=== PATIENT | male | born 1975 | race Caucasian/White ===

== ENCOUNTER 2018-04-28 23:12 | Inpatient (IN) | payer OTHER ==
[2018-04-28] MEDS: SODIUM CHLORIDE 0.9% 1,000 ML IV SCH (23:34)
[2018-04-28 23:51] LABS: Basophils % (A) 0 %; Eosinophils % (A) 0 %; HCT 36.9 % (39.0-53.0); HGB 11.9 gm/dL (13.0-17.5); Lymphocytes # (A) 0.6 k/uL (1.0-4.8); Lymphocytes % (A) 5 %; MCH 27.5 pg (25.0-35.0); MCHC 32.3 g/dL (31.0-37.0); MCV 84.9 fL (80.0-100.0); Mean Platelet Volume 6.9; Monocytes # (A) 0.5 k/uL (0-1.0); Monocytes % (A) 4 %; Neutrophils # (A) 11.9 k/uL (1.3-7.7); Neutrophils % (A) 91 %; Platelet Count 206 k/uL (150-450); RBC 4.34 m/uL (4.30-5.90)
[2018-04-29 00:02] LABS: Albumin 2.9 g/dL (3.5-5.0); Calcium 7.8 mg/dL (8.4-10.2); Potassium 4.2 mmol/L (3.5-5.1); Total Bilirubin 0.8 mg/dL (0.2-1.3); Total Protein 5.5 g/dL (6.3-8.2)
--- NOTE | 2018-04-29 00:11 | ED ---
General Adult HPI - General Chief complaint: Recheck/Abnormal Lab/Rx Stated complaint: Sepsis Time Seen by Provider: 04/28/18 23:21 Source: patient, EMS Mode of arrival: EMS Limitations: no limitations - History of Present Illness Initial comments: Lamont is a 43-year-old male with past medical history of psychiatric illness as well as gout who presents the emergency room today as a transfer from an outside facility for further management of sepsis secondary to cellulitis. The patient was seen and evaluated in an emergency department on April 27 at which time he was having bright red blood per rectum, he was advised that this was likely related to NSAID use due to his pain secondary to gout. At the time he is noted to have bilateral lower extremity cellulitis which developed after from his legs. Patient reports that last week he helped his friend do some concrete work, he will boots with socks as well as shorts but no pants and no protective clothing. He reports after doing this concrete work his socks pulled the skin off of his leg. Since that time the area has become somewhat red and tender. The left leg has some. On discharge. Yesterday he was prescribed by mouth Bactrim is charged home from the emergency department. Patient reports that on the afternoon of April 28 he developed a fever and rigors, he describes it as feeling shaking all over his body but he cannot control. He return to the emergency department and was found to be febrile, tachycardic, hypotensive with lab evaluation revealing leukocytosis, lactic acidosis. Patient was noted to be septic secondary to the cellulitis of the bilateral lower extremities he was treated with IV Zosyn and clindamycin. He is given IV fluids and his blood pressure remained him what low, he was transferred to our emergency department. Prior to transfer the patient was started on levophed, however this was discontinued in route due to normalization of the blood pressure. She denies any history of significant cellulitis or skin infections. Denies any history of diabetes. Denies any other complaints including headache, chest pain, cough, shortness of breath, palpitations, abdominal pain, nausea, vomiting. He reports that he only had the one episode of bright red blood per rectum yesterday. That has not persisted today. Panda pain. No change in bowel or bladder habits. No other rashes injuries or complaints. - Related Data Home Medications Medication Instructions Recorded Confirmed Paliperidone Palmitate [Invega 156 mg IM DIRECTED 02/20/14 07/28/14 S[facility]enna] Previous Rx's Medication Instructions Recorded Escitalopram [Lexapro] 20 mg PO HS 30 Days tab 08/01/14 OXcarbazepine [Trileptal] 300 mg PO HS 30 Days tab 08/01/14 Allergies Allergy/AdvReac Type Severity Reaction Status Date / Time No Known Allergies Allergy Verified 07/28/14 05:57 Review of Systems ROS Statement: Those systems with pertinent positive or pertinent negative responses have been documented in the HPI. ROS Other: All systems not noted in ROS Statement are negative. Past Medical History Additional Past Medical History / Comment(s): Gout History of Any Multi-Drug Resistant Organisms: None Reported Additional Past Surgical History / Comment(s): POLYP REMOVED FROM NOSE AND A CYST REMOVED FROM LOWER BACK Past Anesthesia/Blood Transfusion Reactions: No Reported Reaction Past Psychological History: Anxiety, Bipolar, Depression Smoking Status: Never smoker Past Alcohol Use History: None Reported Past Drug Use History: None Reported General Exam - General Exam Comments Initial Comments: GENERAL: Flushed, mildly toxic appearing HENT: Normocephalic, Atraumatic. Neck is soft and supple. No significant lymphadenopathy is noted. Oropharynx is clear. Moist mucous membranes. Neck has full range of motion without eliciting any pain. EYES: The sclera were anicteric and conjunctiva were pink and moist. Extraocular movements were intact and pupils were equal round and reactive to light. Eyelids were unremarkable. PULMONARY: Unlabored respirations. Good breath sounds bilaterally. No audible rales rhonchi or wheezing was noted. CARDIOVASCULAR: There is a regular rate and rhythm without any murmurs gallops or rubs. ABDOMEN: Soft and nontender with normal bowel sounds. SKIN: Bilateral medial shins have areas of skin excoriation with surrounding erythema , left leg has purulent drainage noted NEUROLOGIC: Patient is alert and oriented x3. Cranial nerves II through XII are grossly intact. Motor and sensory are also intact. Normal speech, volume and content. Symmetrical smile. MUSCULOSKELETAL: Normal extremities with adequate strength and full range of motion. No lower extremity swelling or edema. No calf tenderness. LYMPHATICS: No significant lymphadenopathy is noted PSYCHIATRIC: Normal psychiatric evaluation. Limitations: no limitations Limitations: no limitations Course Vital Signs 04/28/18 04/28/18 23:14 23:49 Temperature 99.4 F Pulse Rate 106 H 96 Respiratory 20 18 Rate Blood Pressure 115/56 97/51 O2 Sat by Pulse 97 98 Oximetry EKG Findings - EKG Comments: EKG Findings:: EKG obtained at 2318, rate is 104, rhythm is sinus tachycardia, normal axis, normal intervals, AR 128, QRS 88, QTC is 439 Medical Decision Making - Medical Decision Making Patient care was discussed with the transferring physician who evaluated the patient 2 days in a row. Patient was seen yesterday for bright red blood per rectum, was noted to have sialitis the bilateral extremities discharge home with by mouth Bactrim. Patient returned today appeared be floridly septic. Febrile, hypotensive, tachypneic, tachycardic. Labs revealed improving leukocytosis from the previous day however he developed a lactic acidosis. The patient was treated with Zosyn and clindamycin. Patient did have intermittent hypotension with blood pressure as low as 80/40 per the outside facility, patient was given Levaquin prior to transfer which was discontinued by the EMS facility in route. I will patient is mildly tachycardic, blood pressure remains in the 105 systolic range. Fever has improved. Respiratory rate is improved. He appears flushed Repeat sepsis workup was ordered. Persistently of leukocyte esterase with white blood cell count of 13, lactic acidosis has resolved. Electrolytes and kidney function are good. Pain at our facility though the patient had received Zosyn and clindamycin prior to transfer. At this time I'm confident the patient is septic secondary to bilateral lower extremity cellulitis. Given the patient's soft blood pressures high fevers and right ear as I do feel the patient warrants close monitoring. I will plan to admit the patient to our selective unit for sepsis. Zosyn and vancomycin were ordered for further antibiosis. - Lab Data Result diagrams: 04/28/18 23:30 04/28/18 23:30 Lab Results 04/28/18 04/28/18 04/28/18 Range/Units 23:30 23:30 23:30 WBC 13.0 H (3.8-10.6) k/uL RBC 4.34 (4.30-5.90) m/uL Hgb 11.9 L (13.0-17.5) gm/dL Hct 36.9 L (39.0-53.0) % MCV 84.9 (80.0-100.0) fL MCH 27.5 (25.0-35.0) pg MCHC 32.3 (31.0-37.0) g/dL RDW 15.0 (11.5-15.5) % Plt Count 206 (150-450) k/uL Neutrophils % 91 % Lymphocytes % 5 % Monocytes % 4 % Eosinophils % 0 % Basophils % 0 % Neutrophils # 11.9 H (1.3-7.7) k/uL Lymphocytes # 0.6 L (1.0-4.8) k/uL Monocytes # 0.5 (0-1.0) k/uL Eosinophils # 0.0 (0-0.7) k/uL Basophils # 0.0 (0-0.2) k/uL Sodium 140 (137-145) mmol/L Potassium 4.2 (3.5-5.1) mmol/L Chloride 112 H (98-107) mmol/L Carbon Dioxide 23 (22-30) mmol/L Anion Gap 5 mmol/L BUN 11 (9-20) mg/dL Creatinine 1.16 (0.66-1.25) mg/dL Est GFR (CKD-EPI)AfAm 89 (>60 ml/min/1.73 sqM) Est GFR (CKD-EPI)NonAf 77 (>60 ml/min/1.73 sqM) Glucose 124 H (74-99) mg/dL Plasma Lactic Acid Derik 1.8 (0.7-2.0) mmol/L Calcium 7.8 L (8.4-10.2) mg/dL Total Bilirubin 0.8 (0.2-1.3) mg/dL AST 29 (17-59) U/L ALT 30 (21-72) U/L Alkaline Phosphatase 94 (38-126) U/L Total Protein 5.5 L (6.3-8.2) g/dL Albumin 2.9 L (3.5-5.0) g/dL Disposition Clinical Impression: Sepsis affecting skin, Cellulitis, Hypotension, Lactic acidosis Disposition: ADMITTED IP TO THIS HOSP Condition: Serious Is patient prescribed a controlled substance at d/c from ED?: No Referrals: Bryce Patel MD [Primary Care Provider] - 1-2 days
[2018-04-29] MEDS ORDERED: oxyCODONE-APAP 5-325MG 1 EACH TAB PO PRN (00:12)
[2018-04-29] MEDS ORDERED: ACETAMINOPHEN TAB 325 MG TAB PO PRN (00:12)
[2018-04-29] MEDS ORDERED: NALOXONE 0.4 MG/ML 1 ML VIAL IV PRN (00:12)
[2018-04-29] MEDS ORDERED: PIPERACILLIN-TAZOBACTAM 3.375 GM in DEXTROSE/WATER 1 50ML.BAG IVPB STA (00:15)
[2018-04-29] MEDS ORDERED: VANCOMYCIN IV PER PHARMACY 1 EACH MISC MISCELLANE PRN (00:15)
[2018-04-29 00:16] LABS: INR 1.1 (<1.2); Prothrombin Time 10.6 sec (9.0-12.0)
[2018-04-29 00:17] LABS: Partial Thromboplastin Time 19.3 sec (22.0-30.0)
[2018-04-29] MEDS ORDERED: VANCOMYCIN 2,000 MG in SODIUM CHLORIDE 0.9% 500 ML IVPB STA (00:19)
[2018-04-29 04:58] LABS: Appearance,Urine Clear (Clear); Bilirubin,Urine Negative (Negative); Blood,Urine Large (Negative); Budding Yeast,Urine Few /hpf; Color,Urine Yellow; Glucose,Urine (UA) Negative (Negative); Ketones,Urine Trace (Negative); Leukocyte Esterase,Urine Negative (Negative); Mucus,Urine Rare /hpf; Nitrite,Urine Negative (Negative); Protein,Urine 1+ (Negative); RBC,Urine >182 /hpf (0-5); Squamous Epithelial Cell,Urine <1 /hpf (0-4); WBC,Urine 8 /hpf (0-5)
[2018-04-29 04:59] LABS: Specific Gravity,Urine >1.050 (1.001-1.035)
[2018-04-29] MEDS: PANTOPRAZOLE 40 MG/10 ML VIAL IV SCH (08:11)
[2018-04-29] MEDS: HEPARIN SODIUM,PORCINE 5,000 UNIT/ML 1 ML VIAL SQ SCH ×2 (08:14→16:27)
[2018-04-29] MEDS: SODIUM CHLORIDE 0.9% 1,000 ML IV SCH ×3 (09:42→20:11)
[2018-04-29] MEDS: VANCOMYCIN 2,000 MG in SODIUM CHLORIDE 0.9% 500 ML IVPB SCH (14:12)
[2018-04-30] MEDS: VANCOMYCIN 2,000 MG in SODIUM CHLORIDE 0.9% 500 ML IVPB SCH ×2 (00:55→12:23)
[2018-04-30] MEDS: HEPARIN SODIUM,PORCINE 5,000 UNIT/ML 1 ML VIAL SQ SCH ×3 (00:55→15:48)
[2018-04-30] MEDS: HYDROCORTISONE SUCCINATE 100 MG/2 ML VIAL IV SCH ×3 (01:33→17:26)
--- NOTE | 2018-04-30 06:27 | HP ---
HISTORY AND PHYSICAL DATE OF SERVICE: 04/30/2018 PRESENTING COMPLAINT: Wound on lower extremity. HISTORY OF PRESENTING COMPLAINT: This is a 43-year-old patient who follows with Dr. Patel. Chronic stable medical conditions include gout, kidney stones, bipolar disorder. The patient bought a new set of boots and had started rubbing in the middle part of the and the patient developed abrasions on both the legs and started becoming infected. The patient thinks he may have had a fever at home and decided to present to the ER. The patient was unable to make it to his family doctor. Patient was then prescribed Bactrim and that did not seem to help him and the patient then developed fever and chills. The patient initially presented to the outside ER and patient's blood pressure was running low and patient had to be put on Levophed, given IV fluids. Subsequently by the time patient presented to our ER, the patient's blood pressure had come up into triple digits. The patient is feeling a bit better, slight nausea. REVIEW OF SYSTEMS: CONSTITUTIONAL: Weak, tired, had fever and chills. HEENT: None. RESPIRATORY: None. CARDIOVASCULAR: None. GASTROINTESTINAL: None. GENITOURINARY: None. MUSCULOSKELETAL, DERMATOLOGICAL: As above. LYMPHATICS: None. PSYCHIATRY: Bipolar controlled. NEUROLOGICAL: None. PAST MEDICAL HISTORY: Gout, kidney stones, bipolar disorder. PAST SURGICAL HISTORY: Polyp removed from the nose and cyst removed from the upper back. PSYCH HISTORY: Bipolar disorder. SOCIAL HISTORY: Lives with his mother. The patient tried to get disability. Does not smoke or drink alcohol. Denies use of recreational drugs. FAMILY HISTORY: Father had CHF, also history of diabetes and hypertension. HOME MEDICATIONS: 1. Prednisone 30 mg a day. 2. Bactrim DS 1 tablet p.o. q.12. 3. Omeprazole 20 mg a day. 4. Zoloft 100 mg with supper. 5. Latuda 80 mg with supper. 6. Allopurinol 100 mg with supper. ALLERGIES: None. PHYSICAL EXAMINATION: On examination, vital signs on presentation: Temperature 99.4, pulse 106, respiratory 20, blood pressure 115/56, pulse ox 97% on room air. The patient was hypotensive at the other transferring facility. GENERAL APPEARANCE: Well built, BMI 45.3, lying in bed, tired appearing. EYES: Pupils equal. Conjunctivae normal. HENT: External appearance of nose and ears normal. Oral cavity normal. NECK: JVD not raised. Mass not palpable. RESPIRATORY: Effort normal. Lungs are clear. CARDIOVASCULAR: First and second sounds normal. Minimal edema. ABDOMEN: Soft, nontender. Liver and spleen not palpable. PSYCHIATRY: Alert and oriented x3. normal. DERMATOLOGICAL: Has breakdown of skin with secondary infection appearing redness and peeling of the skin at both the thighs, midlevel, more so on the posterior side with also areas of abrasions. INVESTIGATIONS: White count 13, hemoglobin 11.9. Potassium 4.2. BUN 11, creatinine 1.16. UA positive for blood. ASSESSMENT: 1. Acute bilateral lower extremity cellulitis from trauma from a boot with secondary infection causing septic shock. The patient had to be given IV fluid boluses at outside hospital and Levophed on which patient arrived to our ER. 2. Morbid obesity, body mass index 45.3. 3. Hematuria. PLAN: At this point patient is put on vancomycin. IV fluids are being continued. We will give Silvadene cream twice a day. Care was discussed with the patient. We will also get Urology opinion regarding significant hematuria. Care was discussed with the patient, questions were answered. MMODL / IJN: [id number] /
[2018-04-30 07:14] LABS: Basophils % (A) 0 %; Eosinophils # (A) 0.1 k/uL (0-0.7); Eosinophils % (A) 2 %; HCT 35.9 % (39.0-53.0); HGB 11.7 gm/dL (13.0-17.5); Lymphocytes # (A) 0.9 k/uL (1.0-4.8); Lymphocytes % (A) 12 %; MCH 27.3 pg (25.0-35.0); MCHC 32.6 g/dL (31.0-37.0); Mean Platelet Volume 6.7; Monocytes # (A) 0.3 k/uL (0-1.0); Monocytes % (A) 4 %; Neutrophils # (A) 6.4 k/uL (1.3-7.7); Neutrophils % (A) 81 %; Platelet Count 216 k/uL (150-450); RBC 4.28 m/uL (4.30-5.90); WBC 7.9 k/uL (3.8-10.6)
[2018-04-30 07:25] LABS: ALT 47 U/L (21-72); AST 39 U/L (17-59); Albumin 2.9 g/dL (3.5-5.0); Alkaline Phosphatase 92 U/L (38-126); Anion Gap 7 mmol/L; Blood Urea Nitrogen 8 mg/dL (9-20); Calcium 7.8 mg/dL (8.4-10.2); Carbon Dioxide 23 mmol/L (22-30); Chloride 112 mmol/L (98-107); Glucose 91 mg/dL (74-99); Magnesium 1.6 mg/dL (1.6-2.3); Phosphorus 2.6 mg/dL (2.5-4.5); Sodium 142 mmol/L (137-145); Total Bilirubin 0.6 mg/dL (0.2-1.3); Total Protein 5.6 g/dL (6.3-8.2)
[2018-04-30] MEDS: PANTOPRAZOLE 40 MG/10 ML VIAL IV SCH (08:20)
[2018-04-30] MEDS: SODIUM CHLORIDE 0.9% 1,000 ML IV SCH ×3 (08:28→19:17)
[2018-04-30] MEDS ORDERED: NON-FORMULARY DRUG (Omeprazole [Omeprazole] 20 MG) PO SCH (09:00)
--- NOTE | 2018-04-30 15:46 | P.GSCN ---
History of Present Illness Consult date: 04/30/18 History of present illness: This is a 43-year-old gentleman brought in the hospital because of sepsis secondary to a lower extremity cellulitis. The patient has been evaluated for this due to hypertensive episode. He has had a computed tomography scan of the chest in the abdomen. Apparently after his computed tomography scan of the abdomen and chest he had gross hematuria. The hematuria sounded dark. He had a microscopic urinalysis was loaded with red cells. There is no obvious infection. The patient does have a history kidney stones. His urine has cleared separately. He has no voiding problems. He has had no trauma. He has no urologic complaints. There's been no previous urinary tract infection. Review of Systems - Constitutional Reports anorexia, Reports chills, Reports fever - Genitourinary Reports as per HPI - Musculoskeletal Reports as per HPI Past Medical History Past Medical History: No Reported History Additional Past Medical History / Comment(s): Recent rectal bleed-one time and current bilateral cellulitis lower legs. Other hx: Gout bilateral feet, nephrolithiasis, past bilateral carpal tunnel syndrome but not lately, possible arthritis L ankle, elevated triglycerides with last lab draw. History of Any Multi-Drug Resistant Organisms: None Reported Additional Past Surgical History / Comment(s): POLYP REMOVED FROM NOSE AND A CYST REMOVED FROM UPPER BACK Past Anesthesia/Blood Transfusion Reactions: No Reported Reaction Smoking Status: Never smoker - Past Family History Mother Family Medical History: Diabetes Mellitus, Hypertension Father Family Medical History: Congestive Heart Failure (CHF) Additional Family Medical History / Comment(s): Father from CHF one week before his 41[age] birthday. Medications and Allergies Home Medications Medication Instructions Recorded Confirmed Type Allopurinol [Zyloprim] 100 mg PO W/SUPPER 04/29/18 04/29/18 History Lurasidone [Latuda] 80 mg PO W/SUPPER 04/29/18 04/29/18 History Omeprazole 20 mg PO DAILY 04/29/18 04/29/18 History Sertraline [Zoloft] 100 mg PO W/SUPPER 04/29/18 04/29/18 History Sulfamethox-Tmp 800-160Mg [Bactrim 1 tab PO Q12HR 04/29/18 04/29/18 History DS 800-160 mg] predniSONE 30 mg PO DAILY 04/29/18 04/29/18 History Allergies Allergy/AdvReac Type Severity Reaction Status Date / Time No Known Allergies Allergy Verified 04/29/18 08:22 Surgical - Exam Vital Signs Temp Pulse Resp BP Pulse Ox 99.4 F 106 H 20 115/56 97 04/28/18 23:14 04/28/18 23:14 04/28/18 23:14 04/28/18 23:14 04/28/18 23:14 - General well developed, well nourished, obese - Eyes PERRL - ENT normal mucosa - Neck no masses - Respiratory normal expansion, normal respiratory effort - Cardiovascular Rhythm: regular - Abdomen Abdomen: soft, non tender - Genitourinary normal penis with no external lesions, testicles present - Integumentary Bilateral lower extremity wraps - Neurologic normal coordination, normal sensation - Musculoskeletal normal posture - Psychiatric oriented to time, oriented to person, oriented to place, speech is normal, memory intact Results - Labs 04/30/18 06:37 04/30/18 06:37 Abnormal Lab Results - Last 24 Hours (Table) 04/30/18 04/30/18 Range/Units 06:37 06:37 RBC 4.28 L (4.30-5.90) m/uL Hgb 11.7 L (13.0-17.5) gm/dL Hct 35.9 L (39.0-53.0) % Lymphocytes # 0.9 L (1.0-4.8) k/uL Chloride 112 H (98-107) mmol/L BUN 8 L (9-20) mg/dL Calcium 7.8 L (8.4-10.2) mg/dL Total Protein 5.6 L (6.3-8.2) g/dL Albumin 2.9 L (3.5-5.0) g/dL Microbiology - Last 24 Hours (Table) 04/29/18 04:30 Urine Culture - Final Urine,Voided 04/28/18 23:30 Blood Culture - Preliminary Blood No Growth after 24 hours Diabetes panel 04/30/18 Range/Units 06:37 Sodium 142 (137-145) mmol/L Potassium 4.0 (3.5-5.1) mmol/L Chloride 112 H (98-107) mmol/L Carbon Dioxide 23 (22-30) mmol/L BUN 8 L (9-20) mg/dL Creatinine 0.96 (0.66-1.25) mg/dL Glucose 91 (74-99) mg/dL Calcium 7.8 L (8.4-10.2) mg/dL AST 39 (17-59) U/L ALT 47 (21-72) U/L Alkaline Phosphatase 92 (38-126) U/L Total Protein 5.6 L (6.3-8.2) g/dL Albumin 2.9 L (3.5-5.0) g/dL Calcium panel 04/30/18 Range/Units 06:37 Calcium 7.8 L (8.4-10.2) mg/dL Phosphorus 2.6 (2.5-4.5) mg/dL Albumin 2.9 L (3.5-5.0) g/dL Pituitary panel 04/30/18 Range/Units 06:37 Sodium 142 (137-145) mmol/L Potassium 4.0 (3.5-5.1) mmol/L Chloride 112 H (98-107) mmol/L Carbon Dioxide 23 (22-30) mmol/L BUN 8 L (9-20) mg/dL Creatinine 0.96 (0.66-1.25) mg/dL Glucose 91 (74-99) mg/dL Calcium 7.8 L (8.4-10.2) mg/dL Adrenal panel 04/30/18 Range/Units 06:37 Sodium 142 (137-145) mmol/L Potassium 4.0 (3.5-5.1) mmol/L Chloride 112 H (98-107) mmol/L Carbon Dioxide 23 (22-30) mmol/L BUN 8 L (9-20) mg/dL Creatinine 0.96 (0.66-1.25) mg/dL Glucose 91 (74-99) mg/dL Calcium 7.8 L (8.4-10.2) mg/dL Total Bilirubin 0.6 (0.2-1.3) mg/dL AST 39 (17-59) U/L ALT 47 (21-72) U/L Alkaline Phosphatase 92 (38-126) U/L Total Protein 5.6 L (6.3-8.2) g/dL Albumin 2.9 L (3.5-5.0) g/dL - Imaging CT scan - abdomen: report reviewed, image reviewed CT scan - pelvis: report reviewed, image reviewed Assessment and Plan Assessment: Impression: Gross and microscopic hematuria indeterminate etiology. Lower extremity cellulitis with sepsis. Morbid obesity. History kidney stones Recommendations: The patient should have a follow-up evaluation in the office to make sure his urine clears. At that point time we'll decide whether cystoscopy is indicated. I do not have an immediate cause for this hematuria at this point in time with a normal computed tomography scan of the abdomen and pelvis.
[2018-04-30] MEDS: LURASIDONE 80 MG TAB PO SCH (17:30)
[2018-04-30] MEDS: ALLOPURINOL 100 MG TAB PO SCH (17:30)
[2018-04-30] MEDS: SERTRALINE 100 MG TAB PO SCH (17:30)
--- NOTE | 2018-04-30 21:57 | HP ---
HISTORY AND PHYSICAL ADDENDUM: History and physical correction: The correct date of service on the history and physical dictated on April 30, 2018 at 0038 and date transcribed 04/30/2018 at 0621. The correct date of service is 04/29/2018. MMODL / IJN: [id number] /
--- NOTE | 2018-04-30 22:12 | PN ---
PROGRESS NOTE DATE OF SERVICE: April 30, 2018. PRESENT COMPLAINT: Wound on lower extremity. INTERVAL HISTORY: This patient was admitted with bilateral lower extremity cellulitis from boot trauma causing septic shock, now doing well with antibiotics, IV fluids, overall feeling better. Did tolerate some diet. The patient also got hematuria for which Urology was consulted. REVIEW OF SYSTEMS: Done for constitutional, cardiovascular, GI, pulmonary; relevant findings as above. CURRENT MEDICATIONS: Reviewed and include vancomycin, Silvadene. PHYSICAL EXAMINATION: VITAL SIGNS: Temperature 98.7 pulse 104, respiratory 16, blood pressure 165/77, pulse ox 93% on room air. GENERAL APPEARANCE: Lying in bed, comfortable. EYES: Pupils equal, conjunctivae normal. HEENT: External appearance of nose and ears normal. Oral cavity normal. NECK JVD not raised. Mass not palpable. RESPIRATORY effort normal. LUNGS are clear. CARDIOVASCULAR: 1st and 2nd sounds normal. No edema. ABDOMEN: Soft, nontender. Liver and spleen not palpable. PSYCHIATRY: Awake, answering questions. DERMATOLOGICAL: Dressing on both the legs. INVESTIGATIONS: White count 7.9, hemoglobin 11.7, potassium 4, BUN 8, creatinine 0.96. ASSESSMENT: 1. Acute bilateral lower extremity cellulitis from trauma from a boot with secondary infection causing septic shock, now resolved. Septic shock is resolved. 2. Morbid obesity BMI 45.3. 3. Gross hematuria, cause undetermined. 4. Hypoalbuminemia likely acute phase reactant. 5. Normocytic anemia cause undetermined. PLAN: Continue patient on current medications. Cut back on Solu-Cortef to 25 mg q.8. Urology did see the patient. At this point plan to further workup as an outpatient. MMODL / IJN: [id number] /
[2018-05-01] MEDS ORDERED: VANCOMYCIN TROUGH DUE 1 EACH MISC MISCELLANE ONE
[2018-05-01] MEDS: HYDROCORTISONE SUCCINATE 100 MG/2 ML VIAL IV SCH ×4 (00:59→23:45)
[2018-05-01] MEDS: VANCOMYCIN 2,000 MG in SODIUM CHLORIDE 0.9% 500 ML IVPB SCH ×2 (00:59→13:53)
[2018-05-01] MEDS: SODIUM CHLORIDE 0.9% 1,000 ML IV SCH ×3 (06:18→23:46)
[2018-05-01 07:46] LABS: Anion Gap 7 mmol/L; Blood Urea Nitrogen 8 mg/dL (9-20); Calcium 7.8 mg/dL (8.4-10.2); Carbon Dioxide 24 mmol/L (22-30); Chloride 114 mmol/L (98-107); Glucose 83 mg/dL (74-99); Potassium 3.6 mmol/L (3.5-5.1); Sodium 145 mmol/L (137-145)
[2018-05-01 07:52] LABS: Basophils % (A) 0 %; Eosinophils # (A) 0.1 k/uL (0-0.7); Eosinophils % (A) 1 %; HCT 34.8 % (39.0-53.0); HGB 11.9 gm/dL (13.0-17.5); Lymphocytes # (A) 1.8 k/uL (1.0-4.8); Lymphocytes % (A) 21 %; MCH 28.2 pg (25.0-35.0); MCHC 34.1 g/dL (31.0-37.0); MCV 82.6 fL (80.0-100.0); Mean Platelet Volume 7.3; Monocytes # (A) 0.4 k/uL (0-1.0); Monocytes % (A) 4 %; Neutrophils % (A) 72 %; Platelet Count 246 k/uL (150-450); RBC 4.21 m/uL (4.30-5.90); WBC 8.4 k/uL (3.8-10.6)
[2018-05-01] MEDS: PANTOPRAZOLE 40 MG/10 ML VIAL IV SCH (09:41)
[2018-05-01] MEDS: SERTRALINE 100 MG TAB PO SCH (18:26)
[2018-05-01] MEDS: ALLOPURINOL 100 MG TAB PO SCH (18:26)
[2018-05-01] MEDS: LURASIDONE 80 MG TAB PO SCH (18:26)
[2018-05-02] MEDS: VANCOMYCIN 2,000 MG in SODIUM CHLORIDE 0.9% 500 ML IVPB SCH ×2 (01:00→13:02)
--- NOTE | 2018-05-02 04:49 | PN ---
PROGRESS NOTE DATE OF SERVICE: May 01, 2018. PRESENTING COMPLAINT: Wound on the lower extremity. INTERVAL HISTORY: The patient admitted with bilateral lower extremity cellulitis from boot trauma causing septic shock, now doing well, tolerating diet. Has been up to the bathroom a few times. The wound is healing well. Local care is also going on. The patient also had hematuria. REVIEW OF SYSTEMS: Done for constitutional, cardiovascular, GI, pulmonary, relevant findings as above. CURRENT MEDICATIONS: Reviewed and include vancomycin, IV Solu-Cortef. PHYSICAL EXAMINATION: VITAL SIGNS: Temperature 98, pulse 99, respiration 20, blood pressure 139/84, pulse ox 91 percent on room air. GENERAL APPEARANCE: Sitting up comfortable. EYES: Pupils are equal. Conjunctivae normal. HEENT: External appearance of nose and ears normal. Oral cavity normal. NECK JVD not raised. Mass not palpable. RESPIRATORY effort normal. LUNGS are clear. CARDIOVASCULAR: 1st and 2nd sounds normal. No edema. ABDOMEN: Soft, nontender. Liver and spleen not palpable. PSYCHIATRY: Alert and oriented times three. Mood and affect normal. DERMATOLOGICAL wound on the lower extremities improving. INVESTIGATIONS: White count 8.4, hemoglobin 11.9, potassium 3.6, BUN creatinine is normal. ASSESSMENT: 1. Acute bilateral lower extremity cellulitis from trauma with a boot secondary infection causing septic shock on presentation. 2. Morbid obesity BMI 45.3. 3. Gross hematuria, cause unknown. 4. Hypoalbuminemia likely acute phase reactant. 5. Normocytic anemia, cause undetermined. PLAN: Continue current medication and treatment plan. Care was discussed with the patient. We will DC the IV tomorrow. MMODL / IJN: [id number] /
[2018-05-02 07:24] LABS: Anion Gap 5 mmol/L; Blood Urea Nitrogen 7 mg/dL (9-20); Calcium 7.8 mg/dL (8.4-10.2); Carbon Dioxide 25 mmol/L (22-30); Chloride 113 mmol/L (98-107); Glucose 84 mg/dL (74-99); Potassium 3.5 mmol/L (3.5-5.1); Sodium 143 mmol/L (137-145)
[2018-05-02] MEDS: SODIUM CHLORIDE 0.9% 1,000 ML IV SCH (08:14)
[2018-05-02] MEDS: PANTOPRAZOLE 40 MG TABLET PO SCH (08:14)
--- NOTE | 2018-05-02 15:12 | CT ---
EXAMINATION TYPE: CT angio chest DATE OF EXAM: 05/02/2018 3:05 PM COMPARISON: 04/28/2018 HISTORY: PE CT DLP: 621 mGycm Automated exposure control for dose reduction was used. CONTRAST: CTA scan of the thorax is performed without and with IV Contrast, patient injected with 100 ml mL of Isovue 370, pulmonary embolism protocol. There are 3-D post processed images.. FINDINGS: There are bilateral pleural effusions. There are airspace infiltrates and atelectasis in the posterio r lung roca. I see no filling defects in the pulmonary arteries. There is no mediastinal adenopathy . The bony thorax appears intact. IMPRESSION: NO EVIDENCE OF PULMONARY EMBOLISM. EXTENSIVE BILATERAL AIRSPACE INFILTRATE AND PLEURAL EFFUSIONS THAT ARE NEW COMPARED TO RECENT EXAM OF 04/28/2018 AND CONSISTENT WITH HEART FAILURE OR RDS.
[2018-05-02] MEDS ORDERED: FUROSEMIDE 10 MG/ML 4 ML VIAL IV SCH (15:27)
--- NOTE | 2018-05-02 16:36 | XR ---
EXAMINATION TYPE: XR chest 2V DATE OF EXAM: 05/02/2018 COMPARISON: 04/28/2018 HISTORY: Heart failure TECHNIQUE: Frontal and lateral views of the chest are obtained. FINDINGS: There is pulmonary interstitial edema. Heart is probably enlarged. There is some blunting of costophrenic angles. There is fluid in the fissures. IMPRESSION: Findings consistent with congestive heart failure that is new compared to last exam.
--- NOTE | 2018-05-02 16:44 | PN ---
PROGRESS NOTE DATE OF SERVICE: 05/02/2018 PRESENTING COMPLAINT: Short of breath. INTERVAL HISTORY: This patient was admitted with lower extremity traumatic cellulitis from a new set of boots and septic shock. Getting IV fluids. Wounds are healing well. This morning patient complains of short of breath and normally he is not short of breath. Has been up to the bathroom. Denies any obvious orthopnea. Minimal edema. Has been getting IV fluids. No fever. No chills. REVIEW OF SYSTEMS: Done for constitutional, cardiovascular, GI, pulmonary and relevant findings as above. CURRENT MEDICATIONS: Reviewed that include IV vancomycin. PHYSICAL EXAMINATION: VITAL SIGNS: Temperature 98, pulse 101, respiration 22, blood pressure 140/84, pulse ox 98% on room air. GENERAL APPEARANCE: Sitting on the edge of the bed, not in distress. EYES: Pupils equal, conjunctivae normal. HEENT: External appearance of nose and ears normal. Oral cavity normal. NECK JVD unable to assess. Mass not palpable. RESPIRATORY: Respiratory effort increased. LUNGS: Questionable crackles. CARDIOVASCULAR: First and second sounds minimal edema. ABDOMEN: Soft, nontender. Liver and spleen not palpable. PSYCHIATRY: Alert and oriented times three. Mood and affect normal. DERMATOLOGICAL: Wounds on both the lower extremities healing. INVESTIGATIONS: Potassium 3.5, BUN 7, creatinine 0.89. Stat CT of the chest was ordered that came back negative showing PE but did show fluid overload. ASSESSMENT: 1. Acute pulmonary edema from IV fluids causing shortness of breath. 2. Acute bilateral lower extremity cellulitis from trauma from a new boot secondary to infection causing septic shock on presentation with clinical improvement. 3. Morbid obesity BMI 45.3. 4. Gross hematuria, cause unknown, being followed by Urology. 5. Hypoalbuminemia likely acute phase reactant. 6. Normocytic anemia cause undetermined. PLAN: We will DC IV fluids. We will give Lasix 40 mg q.12h. Also check a BNP. We will also DC patient's IV vancomycin. Switch to Bactrim. We will see how patient does clinically and follow. We will also check iron studies. MMODL / IJN: [id number] /
[2018-05-02] MEDS: SERTRALINE 100 MG TAB PO SCH (17:23)
[2018-05-02] MEDS: LURASIDONE 80 MG TAB PO SCH (17:23)
[2018-05-02] MEDS: FUROSEMIDE 10 MG/ML 4 ML VIAL IV SCH (17:23)
[2018-05-02] MEDS: ALLOPURINOL 100 MG TAB PO SCH (17:23)
[2018-05-02] MEDS: SULFAMETHOX-TMP 800-160MG 1 EACH TAB PO SCH (23:14)
[2018-05-03] MEDS: FUROSEMIDE 10 MG/ML 4 ML VIAL IV SCH (04:53)
[2018-05-03] MEDS: SULFAMETHOX-TMP 800-160MG 1 EACH TAB PO SCH (07:59)
[2018-05-03] MEDS: PANTOPRAZOLE 40 MG TABLET PO SCH (07:59)
[2018-05-03 08:48] LABS: Anion Gap 9 mmol/L; Blood Urea Nitrogen 7 mg/dL (9-20); Calcium 8.2 mg/dL (8.4-10.2); Carbon Dioxide 26 mmol/L (22-30); Chloride 110 mmol/L (98-107); Glucose 83 mg/dL (74-99); Potassium 3.4 mmol/L (3.5-5.1); Sodium 145 mmol/L (137-145)
[2018-05-03 11:57] LABS: Iron Saturation 22.51 (15.00-50.00)
[2018-05-03 13:25] VITALS: BP 139/71; PULSE 84; RESP 22; TEMP 98
--- NOTE | 2018-05-04 00:15 | DS ---
DISCHARGE SUMMARY DATE OF ADMISSION: 04/29/2018 DATE OF DISCHARGE: 05/03/2018 FINDINGS: 1. Acute bilateral lower extremity cellulitis from trauma from a new boot leading to septic shock on presentation. 2. Morbid obesity BMI 45.3. 3. Gross hematuria, cause unknown, followed up by Urology as an outpatient. 4. Hypoalbuminemia likely acute phase reactant. 5. Normocytic anemia, cause undetermined. 6. Acute pulmonary edema from IV fluid overload. HOSPITAL COURSE: This patient with a new set of boots that scratches both his legs. It became secondarily infected. The patient was in a sepsis picture, had to be given Levophed and he was transferred from [facility] down here. Doing better by the time of discharge. EXAMINATION: Afebrile, pulse 84, respiration 22, blood pressure 130/71, pulse ox 95 percent on room air. LUNGS: Clear. Cardiovascular: 1st and 2nd sounds normal. The patient wound on both lower extremity, healing well. LABORATORY DATA: White count 8.4, BUN and creatinine is normal. CONSULTATION: Dr. Cope from Urology. DISCHARGE MEDICATIONS: 1. Allopurinol 100 mg with supper. 2. Latuda 80 mg with supper. 3. Omeprazole 20 mg a day. 4. Zoloft 100 mg with supper. 5. Bactrim DS 1 tablet p.o. q.12 for 5 days. 6. Prednisone 30 mg a day. 7. Silvadene cream topical b.i.d. FOLLOWUP: Follow up with Dr. Patel on May 17, 2018. Copy to Dr. Patel. MMTABBYL / IJN: [id number] /
== END 2018-05-03 16:20 | disposition home or self-care (01) | DRG 871 ==
LOC: EC 23:12 → 6SEL 04-29 00:32 → 5MS5E 04-29 09:32
PROVIDERS: ADMIT Hospitalist; ATTEND Hospitalist
DX: A41.9 Sepsis, unspecified organism (principal); R65.21 Severe sepsis with septic shock; L03.115 Cellulitis of right lower limb; L03.116 Cellulitis of left lower limb; Z68.42 Body mass index [BMI] 45.0-49.9, adult; D64.9 Anemia, unspecified; E66.01 Morbid (severe) obesity due to excess calories; E87.70 Fluid overload, unspecified; E88.09 Other disorders of plasma-protein metabolism, not elsewhere classified; F31.9 Bipolar disorder, unspecified; M10.9 Gout, unspecified; R31.0 Gross hematuria; F41.9 Anxiety disorder, unspecified; M19.071 Primary osteoarthritis, right ankle and foot; E78.1 Pure hyperglyceridemia; Z79.52 Long term (current) use of systemic steroids; Z79.899 Other long term (current) drug therapy; Z87.442 Personal history of urinary calculi; Z82.49 Family history of ischemic heart disease and other diseases of the circulatory system; Z83.3 Family history of diabetes mellitus
CPT/HCPCS: 36415; 71046; 71275; 80048; 80053; 80202; 81001; 82728; 83540; 83550; 83605; 83735; 83880; 84100; 85025; 85610; 85730; 87040; 87086; 93005; 96361; 96365; 96366; 96372; 96375; 99285

== ENCOUNTER → 2022-02-12 | Outpatient (CLI) | payer OTHER ==
--- NOTE | 2022-02-12 13:55 | P.SLEEP ---
History of Present Illness DATE: 02/12/2022 CONSULTATION/NEW PATIENT EVALUATION HISTORY OF PRESENT ILLNESS/SLEEP-WAKE EVALUATION: 66year old gentleman had been evaluated in the sleep center for possible obstructive sleep apnea hypopnea syndrome. SLEEP SCHEDULE: Usually sleep schedule on weekdays 10:306 AM, during days off 10:30 PM6 AM. FALLING ASLEEP: Sometimes patient has difficulties with the falling asleep, although no TV in bedroom DURING SLEEP: Patient sleeps in different positions with loud snoring and witnessed episodes of stop breathing during the sleep, he also grind his teeth. No history of hypnogogical hallucinations, sleep paralysis, or cataplexy. DURING THE DAY/WAKE STATE: During the day patient may feel tiredness and sleepiness. Jeremiah sleepiness scale is increased to 10.[]. PAST MEDICAL HISTORY: Hypertension, CHF, hyperlipidemia, gout, depression, bipolar disorder, history of diabetes mellitus in the past, nasal polyps. PAST SURGICAL HISTORY: Surgical treatment of nasal polyps. MEDICATIONS: Loratidine 10 mg once a day, allopurinol 100 mg twice a day, lisinopril 20 mg once a day, atorvastatin 20 mg once a day, Flonase. SOCIAL HISTORY: Negative for smoking, alcohol consumption occasional. FAMILY HISTORY: Heart problems, arthritis, sleep apnea. REVIEW OF SYSTEMS: Loud snoring, witnessed episodes of stop breathing during the sleep. No fevers. No double vision. No recent chest pain. No shortness of breath. No abdominal pain. No bleeding episodes. No blood in urine. No seizure episodes. PHYSICAL EXAMINATION: GENERAL: A pleasant patient without any distress. VITAL SIGNS: BP 143/81, HR 101, RR 18, weight 364.2 pounds, height 5. foot 8-1/2 inches, body mass index 54.2. HEENT: PERRLA, EOMI. Evaluation of oropharynx showed tongue protrudes midline, low position of soft palate Mallampati 4. NECK: Supple. No JVD. Thyroid is not palpable. 23 inches in circumference. LUNGS: Clear to percussion and to auscultation. Good air exchange. No wheezing or rhonchi. HEART: S1, S2 regular. No murmurs, gallops or rubs. ABDOMEN: Soft and nontender. Bowel sounds are present. No organomegaly appreciated. Obese EXTREMITIES: No clubbing or cyanosis. TWO WAY RADIO TECHNICIAN: Awake, alert, and oriented x3. Cranial nerves 2 to 7 intact. There is no fasciculation or atrophy noted. No focal deficits observed. ASSESSMENT: 1. Loud snoring, witnessed episodes of stop breathing during the sleep, extremely low position of soft palate Mallampati 4, extremely wide neck 23 inches in circumference. Obstructive sleep apnea hypopnea syndrome probably in severe range. 2. Morbid obesity body mass index 54.2. 3 hypertension. 4. History of CHF. 5 gout. 6. History of diabetes mellitus. 7. History of depression and bipolar disorder. 8. History of nasal polyps status post surgical treatment. 9. Hyperlipidemia. PLAN: 1. Polysomnography for evaluation of patient's breathing during sleep. 2. CPAP/BiPAP titration if sleep study confirms obstructive sleep apnea- hypopnea syndrome. 3. Preferable position during sleep on the side. 4. No driving if patient feels any sleepiness. Patient is aware of civil and criminal liability for unsafe driving. 5. Sleep hygiene with regular sleep time for at least 7.5-8 hours. 6. Watching and aggressive losing weight. Sincerely, Quincy Herrera MD, PhD, FAASM. Diplomat of [place] [employer], Sleep Medicine Board by [place] [employer] [place] [employer] Tablet Making Machine Operator Helper of [facility] Past Medical History Past Medical History: No Reported History Additional Past Medical History / Comment(s): Recent rectal bleed-one time and current bilateral cellulitis lower legs. Other hx: Gout bilateral feet, nephrolithiasis, past bilateral carpal tunnel syndrome but not lately, possible arthritis L ankle, elevated triglycerides with last lab draw. History of Any Multi-Drug Resistant Organisms: None Reported Additional Past Surgical History / Comment(s): POLYP REMOVED FROM NOSE AND A CYST REMOVED FROM UPPER BACK Past Anesthesia/Blood Transfusion Reactions: No Reported Reaction Past Psychological History: Anxiety, Bipolar, Depression Additional Psychological History / Comment(s): Pt resides with his mother. He is in the process of trying to obtain disablity. He does not drive stating [employer] took away his license about 2 years ago. His mother takes him to [place]. He uses no assistive devices. Past Alcohol Use History: None Reported Past Drug Use History: None Reported - Past Family History Mother Family Medical History: Diabetes Mellitus, Hypertension Father Family Medical History: Congestive Heart Failure (CHF) Additional Family Medical History / Comment(s): Father from CHF one week before his 41[age] birthday. Medications and Allergies Home Medications Medication Instructions Recorded Confirmed Type Lurasidone [Latuda] 80 mg PO W/SUPPER 04/29/18 04/29/18 History Omeprazole 20 mg PO DAILY 04/29/18 04/29/18 History Sertraline [Zoloft] 100 mg PO W/SUPPER 04/29/18 04/29/18 History Sulfamethox-Tmp 800-160Mg [Bactrim 1 tab PO Q12HR 04/29/18 04/29/18 History DS 800-160 mg] allopurinoL [Zyloprim] 100 mg PO W/SUPPER 04/29/18 04/29/18 History predniSONE 30 mg PO DAILY 04/29/18 04/29/18 History SILVER sulfADIAZINE CREAM 1 applic TOPICAL BID applic 05/03/18 Rx [Silvadene Cream] Allergies Allergy/AdvReac Type Severity Reaction Status Date / Time No Known Allergies Allergy Verified 04/29/18 08:22 Sleep Note - Sleep Note Sleep Note: Temperature: Pulse Rate: Respiratory Rate: Blood Pressure: SpO2: Height: Weight: BMI: Neck Circumference:
== END | disposition home or self-care (01) ==
LOC: SLEEP 13:24
PROVIDERS: ATTEND Internal Medicine
DX: G47.33 Obstructive sleep apnea (adult) (pediatric) (principal); I11.0 Hypertensive heart disease with heart failure; I50.9 Heart failure, unspecified; E11.9 Type 2 diabetes mellitus without complications; E78.5 Hyperlipidemia, unspecified
CPT/HCPCS: 99202

== ENCOUNTER 2022-05-28 17:15 | Inpatient (IN) | payer MEDICAID, OTHER ==
[2022-05-28] MEDS ORDERED: chlorproMAZINE 25 MG TAB PO PRN (17:59)
[2022-05-28] MEDS ORDERED: ACETAMINOPHEN TAB 325 MG TAB PO PRN (17:59)
[2022-05-28] MEDS ORDERED: MAGNESIUM HYDROXIDE 2,400 MG/10 ML CUP PO PRN (17:59)
[2022-05-28] MEDS ORDERED: chlorproMAZINE 25 MG/ML 1 ML AMP IM PRN (17:59)
[2022-05-28] MEDS ORDERED: diphenhydrAMINE 50 MG/ML 1 ML VIAL IM PRN (17:59)
[2022-05-28] MEDS ORDERED: diphenhydrAMINE 25 MG CAP PO PRN (17:59)
[2022-05-28] MEDS ORDERED: MAG HYDROX/AL HYDROX/SIMETH 30 ML CUP PO PRN (17:59)
[2022-05-29] MEDS ORDERED: NICOTINE 14MG/24HR PATCH TRANSDERM SCH (09:00)
[2022-05-29] MEDS ORDERED: DEXTROSE 50% SYRINGE 50 ML IVP PRN ×2 (09:57)
--- NOTE | 2022-05-29 11:44 | P.HP ---
Psychiatric H&P - . H&P Date: 05/29/22 History & Physical: Allergies Allergy/AdvReac Type Severity Reaction Status Date / Time colchicine Allergy Swelling Verified 03/22/22 18:25 latex Allergy Rash/Hives Verified 03/22/22 18:25 paliperidone From Invega AdvReac Nausea & Verified 03/22/22 18:25 Vomiting Vital Signs Temp 97.4 F L 05/28/22 21:40 Pulse 101 H 05/28/22 21:40 Resp 20 05/28/22 21:40 BP 123/79 05/28/22 21:40 Pulse Ox 97 05/28/22 21:40 FiO2 Intake & Output 05/28/22 05/29/22 05/29/22 18:59 06:59 18:59 Weight 136.078 kg 151.6 kg 05/29/22 11:34 IDENTIFYING DATA: Patient is a 47-year-old male with history of bipolar disorder, currently homeless out of [facility]. Currently on SSD HPI: Patient presented to the hospital as a transfer from [facility]. Patient was petitioned by a emergency real estate services administrator stating that patient was delusional and tangential and having loose associations. Petition also stated that "he believes he is king Lamont and his father Armani Yeboah is God". Patient also apparently referred to a family is working for the [employer] and his phone "going not today" as described in the petition. Patient was admitted involuntarily yesterday and seen singer songwriter. Patient rambles at times, has loose associations, illogical. He was very talkative today. She was fairly focused on the government and claims that "I'm here because Selvin Issa is not fit for office". He states that the "[facility]" is after him". He also states that other people are after his inheritance. He was also fairly grandiose and spoke about his education level and claims that he graduated from [employer] in July 2001 and almost got his doctorate. She claims that his sleep has been poor appetite as been fair. He has very poor insight and judgment claims that he is not willing to take medications. Patient denies any suicidal or homicidal ideations intent or plan. At this time patient denies any visual hallucinations. He did state that he hears voices of his father and also his uncle. Patient admits to using marijuana, denies using any cigarettes. PAST PSYCHIATRIC HISTORY: Patient states that he has a history of bipolar disorder. Patient claims that he used to be on Trileptal however does not name any other medications that he is willing to take. Patient was last psychiatrically hospitalized on the mental health unit in 2014 and at that time was placed on Lexapro, Trileptal and paliperidone. Patient denies any psychiatric outpatient follow-up however does state that he is connected with [facility]. Patient denies any history of suicide attempts in the past. PMH: As per medicine H&P ALLERGIES: as per EMR CHEMICAL DEPENDENCY HISTORY: as per HPI FAMILY PSYCHIATRIC/SUBSTANCE USE HISTORY: denies SOCIAL HISTORY: Patient was born and raised in [facility]. He states that he completed high school and did his LISETH in college. She states that he may have one daughter. He collects Social Security disability. He is homeless and . MENTAL STATUS EXAM: General Appearance: Patient appears to be overweight, stated age is alert, difficult to redirect. Patient appears to have poor hygiene and grooming. Behavior: Patient is seated without any agitated behavior. Difficult to redirect and demanding, irritable. Speech: Patient's speech is rapid, talkative. Mood/Affect: Patient reports their mood is "okay", affect is congruent and constricted. Suicidality/Homicidality: Patient denies having any homicidal ideation intent or plan. Denies any suicidal ideations intent or plan Perceptions: Patient denies any visual hallucinations and admits to auditory hallucinations from his father and uncle. Though content/process: Patient is illogical, loose associations. He is bizarre in his thought content. Multiple loosely formed delusions. Memory and concentration: AOX3, grossly intact for the purposes of this session. Can spell "WORLD" backwards Judgment and insight: poor STRENGTHS/WEAKNESSES: strength is that patient is resilient. Weakness is that patient has poor judgment and is impulsive INTELLECT: average IMPRESSIONS: Bipolar disorder, current episode joya with psychotic features Cannabis use disorder PLAN: -Patient is admitted under involuntary status to MHU for stabilization of psychiatric symptoms and safety. Patient has not signed adult voluntary form and medication consent and is placed in patient's chart. A second certification was completed and along with petition will be filed for court. -Medications : Will start patient on Trileptal 300 mg twice a day for mood stabilization, Prolixin 3 mg twice a day for psychosis/mood stabilization. Trazodone 100 mg daily at bedtime when necessary for sleep. -Ativan thorazine and benadryl PRN for agitation/aggression -Patient was informed of the risks, benefits and side effects of the medication and patient verbally consented to taking the medications. Patient signed med consent form and was placed in chart. -Internal Medicine consult to perform medical evaluation and physical. -NRT - not needed as patient does not smoke -SW on board for discharge planning. Encourage patient to participate in groups to work on coping skills. Will await deferral and court date. 05/29/22 11:44
[2022-05-29] MEDS: INSULIN ASPART (NovoLOG) 100 UNIT/ML VIAL SQ SCH ×2 (14:27→18:01)
[2022-05-29] MEDS: LORATADINE 10 MG TAB PO SCH (14:27)
[2022-05-29] MEDS: lisinopriL 20 MG TAB PO SCH (14:30)
--- NOTE | 2022-05-29 16:50 | P.CONS ---
History of Present Illness - Reason for Consult Consult date: 05/29/22 Medical management Requesting physician: Thuan Vleazco - Chief Complaint Psychosis - History of Present Illness This is a 47-year-old patient, follows with Dr. Patel. Patient was transferred here from an outside hospital. [place]. Patient was petitioned. Petition had said that patient thought he was King Lamont and his father is Armani gibbs. He says he works for [employer]. His difficult to get the history from the patient and he keeps talking about connections to [employer], and an [employer]. He is rather concerned about his CPAP that is left in his truck near the previous hospital. His appetite is fair. Has a bowel movement every day. Denies any pain. Has trouble sleeping and he thinks his presentation to: Not able to use a CPAP. Denies any fever and chills. It seems patient has stopped taking his medications about a month ago. He reasons that aren't entirely unclear and he thinks that ulterior motives in him getting the medications. Review of systems: GEN.: None EYES: None HEENT: None NECK: None RESPIRATORY: None CARDIOVASCULAR: None GASTROINTESTINAL: None GENITOURINARY: None MUSCULOSKELETAL: None LYMPHATICS: None HEMATOLOGICAL: None PSYCHIATRY: As above NEUROLOGICAL: None Past medical history to include: Diabetes, hypertension, gout or kidney stones, bilateral carpal tunnel syndrome, sleep apnea, bipolar Social history: Apparently is homeless. At some point he was staying with his mother. Denies history of any smoking alcohol or use of any recreational drugs Physical examination: VITAL SIGNS: 37.4, 101, 20, 123/79, 97% on room air GENERAL: BMI 49.4, sitting in chair awake watching television. EYES: Pupils equal. Conjunctiva normal. HEENT: External appearance of nose and ears normal, oral cavity grossly normal. NECK: JVD not raised; masses not palpable. HEART: First and second heart sounds are normal; no edema. LUNGS: Respiratory rate normal; clear to auscultation. ABDOMEN: Soft, nontender, liver spleen not palpable, no masses palpable. PSYCH: Patient sentences not really connected. Grandiose ideas. He thinks his father's car. He works for [employer] MUSCULOSKELETAL:No Clubbing/cyanosis;muscles-grossly intact NEUROLOGICAL: Cranial nerves grossly intact; no facial asymmetry, power and sensation grossly intact. LYMPHATICS: No lymph nodes palpable in the axilla and neck Assessment and plan: -Bipolar disorder with current episode of joya with psychotic features. -Morbid obesity BMI 49.4 Weight loss measures -Chronic gout Allopurinol -Hyperlipidemia Lipitor -Essential hypertension Zestril 20 mg a day -Diabetes mellitus type 2, oral hypoglycemic Follow Accu-Cheks Resumed medications. Follow Accu-Cheks. Diabetic diet. Antipsychotics per Dr. Velazco. We'll follow Thank you Dr. Velazco Past Medical History Past Medical History: Diabetes Mellitus, Hypertension Additional Past Medical History / Comment(s): Recent rectal bleed-one time and current bilateral cellulitis lower legs. Other hx: Gout bilateral feet, nephrolithiasis, past bilateral carpal tunnel syndrome but not lately, possible arthritis L ankle, elevated triglycerides with last lab draw. Sleep apnea History of Any Multi-Drug Resistant Organisms: None Reported Additional Past Surgical History / Comment(s): POLYP REMOVED FROM NOSE AND A CYST REMOVED FROM UPPER BACK Past Anesthesia/Blood Transfusion Reactions: No Reported Reaction Smoking Status: Never smoker - Past Family History Mother Family Medical History: Diabetes Mellitus, Hypertension Father Family Medical History: Congestive Heart Failure (CHF) Additional Family Medical History / Comment(s): Father from CHF one week before his 41st birthday. Medications and Allergies Home Medications Medication Instructions Recorded Confirmed Type allopurinoL [Zyloprim] 100 mg PO BID 04/29/18 03/22/22 History Atorvastatin [Lipitor] 20 mg PO DAILY 03/22/22 03/22/22 History Fluticasone Nasal [place] [Flonase 2 spr EA NOSTRIL BID 03/22/22 03/22/22 History Nasal [place]] Loratadine 10 mg PO DAILY 03/22/22 03/22/22 History glipiZIDE [Glucotrol XL] 10 mg PO DAILY 03/22/22 03/22/22 History lisinopriL [Zestril] 20 mg PO DAILY 03/22/22 03/22/22 History Allergies Allergy/AdvReac Type Severity Reaction Status Date / Time colchicine Allergy Swelling Verified 03/22/22 18:25 latex Allergy Rash/Hives Verified 03/22/22 18:25 paliperidone [From Invega] AdvReac Nausea & Verified 03/22/22 18:25 Vomiting Physical Exam Vitals: Vital Signs Temp Pulse Resp BP Pulse Ox 05/28/22 21:40 97.4 F L 101 H 20 123/79 97 Intake and Output 05/28/22 05/29/22 05/29/22 22:59 06:59 14:59 Other: Weight 151.6 kg
[2022-05-29] MEDS: FLUTICASONE 50MCG/SPRAY NASAL 16GM EA NOSTRIL SCH (21:15)
[2022-05-29] MEDS: allopurinoL 100 MG TAB PO SCH (21:16)
[2022-05-29] MEDS: OXcarbazepine 300 MG TAB PO SCH (21:17)
[2022-05-30 07:57] LABS: Glucose,Whole Blood 106 mg/dL (70-110)
[2022-05-30] MEDS: allopurinoL 100 MG TAB PO SCH ×2 (09:06→20:50)
[2022-05-30] MEDS: LORATADINE 10 MG TAB PO SCH (09:06)
[2022-05-30] MEDS: ATORVASTATIN 20 MG TAB PO SCH (10:19)
[2022-05-30] MEDS: INSULIN ASPART (NovoLOG) 100 UNIT/ML VIAL SQ SCH ×3 (10:19→16:44)
[2022-05-30] MEDS: FLUTICASONE 50MCG/SPRAY NASAL 16GM EA NOSTRIL SCH ×2 (10:20→20:50)
[2022-05-30] MEDS: lisinopriL 20 MG TAB PO SCH (10:20)
[2022-05-30] MEDS: OXcarbazepine 300 MG TAB PO SCH ×2 (10:20→20:51)
--- NOTE | 2022-05-30 10:46 | P.PN ---
Progress Note - Text Progress Note Date: 05/30/22 Interval History: Patient was seen taking part in group today. Patient appeared to be upset with the verse writer today and claims that he does not trust him. He states that he does not want to take the Prolixin or the Trileptal at this time. He states that he believes that the pharmaceutical company giving verse writer money to prescribe these medications for "mind control". He continues to be bizarre illogical and endorsing several delusions loosely formed. He had an M written on his mask and also his forehead and when asked about it he stated "go blue" and referred it to the [facility]. He is denying any depression or anxiety at this time. States that he did not sleep well last night and was requesting trazodone. He continues to state that he hears voices including his father and also his uncle. At this time patient denies any suicidal or homical ideations, intent or plan. Patient denies any visual hallucinations and denies any paranoia or delusions. She is refusing medications at this time. Mental Status Exam: General Appearance: Patient appears to be overweight, stated age is alert, difficult to redirect. Patient appears to have poor hygiene and grooming. Behavior: Patient is seated without any agitated behavior. demanding, irritable. Paranoid, bizarre Speech: Patient's speech is rapid, talkative, improving mildly Mood/Affect: Patient reports their mood is "fine", affect is congruent and constricted. Suicidality/Homicidality: Patient denies having any homicidal ideation intent or plan. Denies any suicidal ideations intent or plan Perceptions: Patient denies any visual hallucinations and admits to auditory hallucinations from his father and uncle. Though content/process: Patient is illogical, loose associations. He is bizarre in his thought content. Multiple loosely formed delusions. Memory and concentration: AOX3, grossly intact for the purposes of this session Judgment and insight: poor IMPRESSIONS: Bipolar disorder, current episode joya with psychotic features Cannabis use disorder Plan: -Patient continues to meet criteria for inpatient psychiatric admission for symptom stabilization and safety. Patient has not signed adult voluntary form and medication consent and was placed in patient's chart. -Medications: Trileptal 300 mg twice a day for mood stabilization, Prolixin 3 mg twice a day for psychosis/mood stabilization. Trazodone 100 mg daily at bedtime for sleep. PATIENT IS NOT TAKING MEDS -When necessary Ativan and Haldol for agitation/aggression. -NRT - not needed as patient does not smoke -SW on board for discharge planning. Encouraged the patient to participate in milieu. Currently awaiting deferral with employment law attorney and court date.
--- NOTE | 2022-05-30 12:41 | P.PN ---
Progress Note - Text Progress Note Date: 05/30/22 - Chief Complaint Psychosis Hospital course: This is a 47-year-old patient, follows with Dr. Patel. Patient was transferred here from an outside hospital. Up in the [facility] region. Patient was petitioned. Petition had said that patient thought he was King Lamont and his father is Armani gibbs. He says he works for [employer]. His difficult to get the history from the patient and he keeps talking about connections to cord, and an politicians. He is rather concerned about his CPAP that is left in his truck near the previous hospital. His appetite is fair. Has a bowel movement every day. Denies any pain. Has trouble sleeping and he thinks his presentation to: Not able to use a CPAP. Denies any fever and chills. It seems patient has stopped taking his medications about a month ago. He reasons that aren't entirely unclear and he thinks that ulterior motives in him getting the medications. 05/30/2022: [place] Started antipsychotics. Refusing to take his diabetic medications. Accu-Chek this morning 106. Also refused some of the medications. Patient still having flight of ideas. Psychotic symptoms persist. Oral intake fair. Active Medications Acetaminophen (Acetaminophen Tab 325 Mg Tab) 650 mg PO Q4HR PRN PRN Reason: Pain/Discomfort Al Hydroxide/Mg Hydroxide (Mag Hydrox/Al Hydrox/Simeth 30 Ml Cup) 30 ml PO Q4HR PRN PRN Reason: GI Upset Allopurinol (Allopurinol 100 Mg Tab) 100 mg PO BID [facility] Last Admin: 05/30/22 09:06 Dose: 100 mg Atorvastatin Calcium (Atorvastatin 20 Mg Tab) 20 mg PO DAILY [facility] Last Admin: 05/30/22 10:19 Dose: Not Given Chlorpromazine HCl (Chlorpromazine 25 Mg/Ml 1 Ml Amp) 75 mg IM Q6HR PRN PRN Reason: Agitation Chlorpromazine HCl (Chlorpromazine 25 Mg Tab) 75 mg PO Q6HR PRN PRN Reason: Agitation Dextrose/Water (Dextrose 50% Syringe 50 Ml) 25 ml IVP PER PROTOCOL PRN; Protocol PRN Reason: Hypoglycemia Dextrose/Water (Dextrose 50% Syringe 50 Ml) 50 ml IVP PER PROTOCOL PRN; Protocol PRN Reason: Hypoglycemia Diphenhydramine HCl (Diphenhydramine 50 Mg/Ml 1 Ml Vial) 50 mg IM Q6HR PRN PRN Reason: Agitation or Acute Psychosis Diphenhydramine HCl (Diphenhydramine 25 Mg Cap) 50 mg PO Q6HR PRN PRN Reason: Agitation or Acute Psychosis Fluphenazine HCl (Fluphenazine 1 Mg Tab) 3 mg PO BID [facility] Last Admin: 05/30/22 10:22 Dose: Not Given Fluticasone Propionate (Fluticasone 50mcg/[place] Nasal 16gm) 2 spray EA NOSTRIL BID [facility] Last Admin: 05/30/22 10:20 Dose: Not Given Insulin Aspart (Insulin Aspart (Novolog) 100 Unit/Ml Vial) 0 unit SQ AC-TID [facility]; Protocol Last Admin: 05/30/22 10:19 Dose: Not Given Lisinopril (Lisinopril 20 Mg Tab) 20 mg PO DAILY [facility] Last Admin: 05/30/22 10:20 Dose: Not Given Lorazepam (Lorazepam 1 Mg/0.5 Ml Vial) 2 mg IM Q6HR PRN PRN Reason: Agitation or Acute Anxiety Lorazepam (Lorazepam 1 Mg Tab) 2 mg PO Q6HR PRN PRN Reason: Agitation or Acute Anxiety Magnesium Hydroxide (Magnesium Hydroxide 2,400 Mg/10 Ml Cup) 2,400 mg PO DAILY PRN PRN Reason: Constipation Oxcarbazepine (Oxcarbazepine 300 Mg Tab) 300 mg PO BID [facility] Last Admin: 05/30/22 10:20 Dose: Not Given Trazodone HCl (Trazodone Hcl 100 Mg Tab) 100 mg PO [facility] Past medical history to include: Diabetes, hypertension, gout or kidney stones, bilateral carpal tunnel syndrome, sleep apnea, bipolar Social history: Apparently is homeless. At some point he was staying with his mother. Denies history of any smoking alcohol or use of any recreational drugs Physical examination: VITAL SIGNS: No white assessment this morning. GENERAL: Appears comfortable EYES: Pupils equal. Conjunctiva normal. HEENT: External appearance of nose and ears normal, oral cavity grossly normal. NECK: JVD not raised; masses not palpable. HEART: First and second heart sounds are normal; no edema. LUNGS: Respiratory rate normal; clear to auscultation. ABDOMEN: Soft, nontender, liver spleen not palpable, no masses palpable. PSYCH: Does answer questions but psychotic answers l. MUSCULOSKELETAL:No Clubbing/cyanosis;muscles-grossly intact Assessment and plan: -Bipolar disorder with current episode of joya with psychotic features. On antipsychotic per psychiatry -Morbid obesity BMI 49.4 Weight loss measures -Chronic gout Allopurinol -Hyperlipidemia Lipitor -Essential hypertension Zestril 20 mg a day -Diabetes mellitus type 2, oral hypoglycemic Follow Accu-Cheks Hopefully as the medications antipsychotics taken, he might start taking his other medications. Thank you Dr. Velazco
[2022-05-30] MEDS: LORazepam 1 MG/0.5 ML VIAL IM PRN (19:23)
[2022-05-30] MEDS ORDERED: HALOPERIDOL LACTATE 5 MG/ML 1 ML VIAL IM STA (19:26)
[2022-05-30] MEDS: chlorproMAZINE 25 MG/ML 2 ML AMP IM PRN (19:30)
[2022-05-30] MEDS ORDERED: HALOPERIDOL LACTATE 5 MG/ML 1 ML VIAL IM ONE (20:08)
[2022-05-30] MEDS: traZODone HCL 100 MG TAB PO SCH (20:51)
[2022-05-31] MEDS: INSULIN ASPART (NovoLOG) 100 UNIT/ML VIAL SQ SCH ×3 (08:13→17:10)
[2022-05-31] MEDS: lisinopriL 20 MG TAB PO SCH (09:26)
[2022-05-31] MEDS: ATORVASTATIN 20 MG TAB PO SCH (09:26)
[2022-05-31] MEDS: allopurinoL 100 MG TAB PO SCH ×2 (09:26→21:02)
[2022-05-31] MEDS: FLUTICASONE 50MCG/SPRAY NASAL 16GM EA NOSTRIL SCH (09:26)
[2022-05-31] MEDS: OXcarbazepine 300 MG TAB PO SCH ×2 (09:26→21:02)
--- NOTE | 2022-05-31 11:26 | P.PN ---
Progress Note - Text Progress Note Date: 05/31/22 - Chief Complaint Psychosis Hospital course: This is a 47-year-old patient, follows with Dr. Patel. Patient was transferred here from an outside hospital. Up in the [facility] region. Patient was petitioned. Petition had said that patient thought he was [place] Lam[place] and his father is Armani gibbs. He says he works for [employer]. His difficult to get the history from the patient and he keeps talking about connections to [employer], and an politicians. He is rather concerned about his CPAP that is left in his truck near the previous hospital. His appetite is fair. Has a bowel movement every day. Denies any pain. Has trouble sleeping and he thinks his presentation to: Not able to use a CPAP. Denies any fever and chills. It seems patient has stopped taking his medications about a month ago. He reasons that aren't entirely unclear and he thinks that ulterior motives in him getting the medications. 05/30/2022: Patient been up and about [place] the [place]. Started antipsychotics. Refusing to take his diabetic medications. Accu-Chek this morning 106. Also refused some of the medications. Patient still having flight of ideas. Psychotic symptoms persist. Oral intake fair. 05/31/2022: Patient instructed been refusing his medications. Taking the occasional medicine. Received IM Haldol last night. Not getting Accu-Cheks checked. Oral intake well. Had a BM. Ambulatory. Patient will need a court- ordered to give him his medications. Active Medications Acetaminophen (Acetaminophen Tab 325 Mg Tab) 650 mg PO Q4HR PRN PRN Reason: Pain/Discomfort Al Hydroxide/Mg Hydroxide (Mag Hydrox/Al Hydrox/Simeth 30 Ml Cup) 30 ml PO Q4HR PRN PRN Reason: GI Upset Allopurinol (Allopurinol 100 Mg Tab) 100 mg PO BID [facility] Last Admin: 05/31/22 09:26 Dose: Not Given Atorvastatin Calcium (Atorvastatin 20 Mg Tab) 20 mg PO DAILY [facility] Last Admin: 05/31/22 09:26 Dose: 20 mg Chlorpromazine HCl (Chlorpromazine 25 Mg Tab) 75 mg PO Q6HR PRN PRN Reason: Agitation Chlorpromazine HCl (Chlorpromazine 25 Mg/Ml 2 Ml Amp) 75 mg IM Q6HR PRN PRN Reason: Agitation Dextrose/Water (Dextrose 50% Syringe 50 Ml) 25 ml IVP PER PROTOCOL PRN; Protocol PRN Reason: Hypoglycemia Dextrose/Water (Dextrose 50% Syringe 50 Ml) 50 ml IVP PER PROTOCOL PRN; Protocol PRN Reason: Hypoglycemia Diphenhydramine HCl (Diphenhydramine 50 Mg/Ml 1 Ml Vial) 50 mg IM Q6HR PRN PRN Reason: Agitation or Acute Psychosis Diphenhydramine HCl (Diphenhydramine 25 Mg Cap) 50 mg PO Q6HR PRN PRN Reason: Agitation or Acute Psychosis Last Admin: 05/31/22 04:36 Dose: 50 mg Fluphenazine HCl (Fluphenazine 1 Mg Tab) 3 mg PO BID [facility] Last Admin: 05/31/22 09:26 Dose: Not Given Insulin Aspart (Insulin Aspart (Novolog) 100 Unit/Ml Vial) 0 unit SQ AC-TID [facility]; Protocol Last Admin: 05/31/22 08:13 Dose: Not Given Lisinopril (Lisinopril 20 Mg Tab) 20 mg PO DAILY [facility] Last Admin: 05/31/22 09:26 Dose: Not Given Lorazepam (Lorazepam 1 Mg/0.5 Ml Vial) 2 mg IM Q6HR PRN PRN Reason: Agitation or Acute Anxiety Last Admin: 05/30/22 19:23 Dose: 2 mg Lorazepam (Lorazepam 1 Mg Tab) 2 mg PO Q6HR PRN PRN Reason: Agitation or Acute Anxiety Magnesium Hydroxide (Magnesium Hydroxide 2,400 Mg/10 Ml Cup) 2,400 mg PO DAILY PRN PRN Reason: Constipation Oxcarbazepine (Oxcarbazepine 300 Mg Tab) 300 mg PO BID [facility] Last Admin: 05/31/22 09:26 Dose: Not Given Trazodone HCl (Trazodone Hcl 100 Mg Tab) 100 mg PO HS [facility] Last Admin: 05/30/22 20:51 Dose: Not Given Past medical history to include: Diabetes, hypertension, gout or kidney stones, bilateral carpal tunnel syndrome, sleep apnea, bipolar Social history: Apparently is homeless. At some point he was staying with his mother. Denies history of any smoking alcohol or use of any recreational drugs Physical examination: VITAL SIGNS: No vital signs recorded again today as patient refused GENERAL: Appears comfortable EYES: Pupils equal. Conjunctiva normal. HEENT: External appearance of nose and ears normal, oral cavity grossly normal. NECK: JVD not raised; masses not palpable. HEART: First and second heart sounds are normal; no edema. LUNGS: Respiratory rate normal; clear to auscultation. ABDOMEN: Soft, nontender, liver spleen not palpable, no masses palpable. PSYCH: Does answer questions but psychotic answers Assessment and plan: -Bipolar disorder with current episode of joya with psychotic features.: Controlled On antipsychotic per psychiatry -Morbid obesity BMI 49.4 Weight loss measures -Chronic gout Allopurinol -Hyperlipidemia Lipitor -Essential hypertension Zestril 20 mg a day -Diabetes mellitus type 2, oral hypoglycemic Follow Accu-Cheks Patient started refusing medications, Accu-Cheks. May need a court-ordered to get his medications. Thank you Dr. Velazco
--- NOTE | 2022-05-31 14:55 | P.PN ---
Subjective Progress Note Date: 05/31/22 Principal diagnosis: -Bipolar disorder with current episode of joya with psychotic features.: Controlled On antipsychotic per psychiatry -Morbid obesity BMI 49.4 Weight loss measures -Chronic gout Allopurinol -Hyperlipidemia Lipitor -Essential hypertension Zestril 20 mg a day -Diabetes mellitus type 2, oral hypoglycemic Follow Accu-Cheks It was very hard to workwith this patient because of pressured speech, flight of ideas so severe as to almost be word salad. His affect is intense and his contact is full of guns and wars and the wrongs done to his family. He is not taking than, 'fucking shit, they are trying to poison me and it all has to do with chamicals in [place]." No sleep, pacing halls. Self care is reasonable and he does attend groups but is unable to see the topic or join in logically. Diagnosis: Bipolar I Manic severe. Objective - Vital Signs Vital signs: Vital Signs Temp 97.8 F 05/31/22 04:41 Pulse 100 05/31/22 04:41 Resp 16 05/31/22 04:41 BP 123/82 05/31/22 04:41 Pulse Ox 97 05/31/22 04:41 FiO2 4 05/30/22 15:53
[2022-05-31] MEDS: traZODone HCL 100 MG TAB PO SCH (23:17)
[2022-06-01] MEDS: INSULIN ASPART (NovoLOG) 100 UNIT/ML VIAL SQ SCH ×3 (09:12→17:12)
[2022-06-01] MEDS: allopurinoL 100 MG TAB PO SCH ×2 (09:13→21:07)
[2022-06-01] MEDS: OXcarbazepine 300 MG TAB PO SCH ×2 (09:14→21:08)
[2022-06-01] MEDS: lisinopriL 20 MG TAB PO SCH (09:14)
[2022-06-01] MEDS: ATORVASTATIN 20 MG TAB PO SCH (09:14)
--- NOTE | 2022-06-01 11:47 | P.PN ---
Progress Note - Text Progress Note Date: 06/01/22 - Chief Complaint Psychosis Hospital course: This is a 47-year-old patient, follows with Dr. Patel. Patient was transferred here from an outside hospital. Up in the [facility] region. Patient was petitioned. Petition had said that patient thought he was [place] Lam[place] and his father is Armani gibbs. He says he works for [employer]. His difficult to get the history from the patient and he keeps talking about connections to sai, and an politicians. He is rather concerned about his CPAP that is left in his truck near the previous hospital. His appetite is fair. Has a bowel movement every day. Denies any pain. Has trouble sleeping and he thinks his presentation to: Not able to use a CPAP. Denies any fever and chills. It seems patient has stopped taking his medications about a month ago. He reasons that aren't entirely unclear and he thinks that ulterior motives in him getting the medications. 05/30/2022: Patient [place] up [place] about [place]. Started antipsychotics. Refusing to take his diabetic medications. Accu-Chek this morning 106. Also refused some of the medications. Patient still having flight of ideas. Psychotic symptoms persist. Oral intake fair. 05/31/2022: Patient instructed been refusing his medications. Taking the occasional medicine. Received IM Haldol last night. Not getting Accu-Cheks checked. Oral intake well. Had a BM. Ambulatory. Patient will need a court- ordered to give him his medications. 06/01/2022: Patient has been wii'll take the occasional medication.. Oral intake fair. Still refusing medications./sore throat. Requesting throat lozenges. I explained to the patient importance of getting his Accu-Cheks done. Has agreed for the same. Active Medications Acetaminophen (Acetaminophen Tab 325 Mg Tab) 650 mg PO Q4HR PRN PRN Reason: Pain/Discomfort Al Hydroxide/Mg Hydroxide (Mag Hydrox/Al Hydrox/Simeth 30 Ml Cup) 30 ml PO Q4HR PRN PRN Reason: GI Upset Allopurinol (Allopurinol 100 Mg Tab) 100 mg PO BID [facility] Last Admin: 06/01/22 09:13 Dose: Not Given Atorvastatin Calcium (Atorvastatin 20 Mg Tab) 20 mg PO DAILY [facility] Last Admin: 06/01/22 09:14 Dose: 20 mg Benzocaine/Menthol (Benzocaine/Menthol Lozeng 1 Each Lozenge) 1 each MUCOUS MEM Q4HR PRN PRN Reason: Cough Chlorpromazine HCl (Chlorpromazine 25 Mg Tab) 75 mg PO Q6HR PRN PRN Reason: Agitation Chlorpromazine HCl (Chlorpromazine 25 Mg/Ml 2 Ml Amp) 75 mg IM Q6HR PRN PRN Reason: Agitation Dextrose/Water (Dextrose 50% Syringe 50 Ml) 25 ml IVP PER PROTOCOL PRN; Protocol PRN Reason: Hypoglycemia Dextrose/Water (Dextrose 50% Syringe 50 Ml) 50 ml IVP PER PROTOCOL PRN; Protocol PRN Reason: Hypoglycemia Diphenhydramine HCl (Diphenhydramine 50 Mg/Ml 1 Ml Vial) 50 mg IM Q6HR PRN PRN Reason: Agitation or Acute Psychosis Diphenhydramine HCl (Diphenhydramine 25 Mg Cap) 50 mg PO Q6HR PRN PRN Reason: Agitation or Acute Psychosis Last Admin: 05/31/22 04:36 Dose: 50 mg Fluphenazine HCl (Fluphenazine 1 Mg Tab) 3 mg PO BID [facility] Last Admin: 06/01/22 09:14 Dose: Not Given Insulin Aspart (Insulin Aspart (Novolog) 100 Unit/Ml Vial) 0 unit SQ AC-TID [facility]; Protocol Last Admin: 06/01/22 09:12 Dose: Not Given Lisinopril (Lisinopril 20 Mg Tab) 20 mg PO DAILY [facility] Last Admin: 06/01/22 09:14 Dose: Not Given Lorazepam (Lorazepam 1 Mg/0.5 Ml Vial) 2 mg IM Q6HR PRN PRN Reason: Agitation or Acute Anxiety Last Admin: 05/30/22 19:23 Dose: 2 mg Lorazepam (Lorazepam 1 Mg Tab) 2 mg PO Q6HR PRN PRN Reason: Agitation or Acute Anxiety Magnesium Hydroxide (Magnesium Hydroxide 2,400 Mg/10 Ml Cup) 2,400 mg PO DAILY PRN PRN Reason: Constipation Oxcarbazepine (Oxcarbazepine 300 Mg Tab) 300 mg PO BID [facility] Last Admin: 06/01/22 09:14 Dose: Not Given Trazodone HCl (Trazodone Hcl 100 Mg Tab) 100 mg PO HS [facility] Last Admin: 05/31/22 23:17 Dose: 100 mg Past medical history to include: Diabetes, hypertension, gout or kidney stones, bilateral carpal tunnel syndrome, sleep apnea, bipolar Social history: Apparently is homeless. At some point he was staying with his mother. Denies history of any smoking alcohol or use of any recreational drugs Physical examination: VITAL SIGNS:patient's refusal vital signs. GENERAL: sitting up comfortable EYES: Pupils equal. Conjunctiva normal. HEENT: External appearance of nose and ears normal, oral cavity grossly normal. NECK: JVD not raised; masses not palpable. HEART: First and second heart sounds are normal; no edema. LUNGS: Respiratory rate normal; clear to auscultation. ABDOMEN: Soft, nontender, liver spleen not palpable, no masses palpable. PSYCH: Does answer questions but psychotic answers Assessment and plan: -Bipolar disorder with current episode of joya with psychotic features.: Controlled On antipsychotic per psychiatry -Morbid obesity BMI 49.4 Weight loss measures -Chronic gout Allopurinol -Hyperlipidemia Lipitor -Essential hypertension Zestril 20 mg a day-refusing to take medications -Diabetes mellitus type 2, oral hypoglycemic Follow [id number] has been refusing Accu-Cheks patient started refusing medications. Has agreed to get his Accu-Cheks done. await antipsychotic medications to take effect.patient may require court order Thank you Dr. Velazco
[2022-06-01] MEDS: BENZOCAINE/MENTHOL LOZENG 1 EACH LOZENGE MUCOUS MEM PRN ×2 (11:51→21:07)
--- NOTE | 2022-06-01 14:08 | P.PN ---
Subjective Progress Note Date: 06/01/22 Principal diagnosis: -Bipolar I disorder with current episode of joya with psychotic features -Morbid obesity BMI 49.4 Weight loss measures -Chronic gout Allopurinol -Hyperlipidemia Lipitor -Essential hypertension Zestril 20 mg a day -Diabetes mellitus type 2, oral hypoglycemic Follow Accu-Cheks It was very hard to work witm." h this patient because of pressured speech, flight of ideas so severe as to almost be word salad. His affect is intense and his contact is full of guns and wars and the wrongs done to his family. Subjective: The only psychotropic I will take his trazodone. Objective: No sleep, pacing halls he seems a little less agitated, he has pry getting used to being here. He is still grandiose saying that if he could've gone to the [employer] [facility] [employer] football game yesterday he could've gotten up and made sure the truth came out and to Ramon Matos would've gotten elected. He talked about another candidate as if it was a good friend that he needs to go and chat with about the election. He focused 4 minutes on wanting more frequent lozenges. However he could not stay on any topic very long. He has been participating more in the program. He wanted his CPAP machine back with its cord but he is too labile and pressured to be safe yet.Self care is reasonable and he does attend groups but is unable to see the topic or join in logically. Assessment he is still severely psychotic and manic and needs medication that he refuses to take we will have to go to court and get court ordered. Then the problem will be having him continue to take the medicines even once he is stable Diagnosis: Bipolar I Manic severe. Objective - Vital Signs Vital signs: Vital Signs Temp 97.8 F 05/31/22 04:41 Pulse 100 05/31/22 04:41 Resp 16 05/31/22 04:41 BP 123/82 05/31/22 04:41 Pulse Ox 97 05/31/22 04:41 FiO2 4 05/30/22 15:53
[2022-06-01] MEDS: LORazepam 1 MG TAB PO PRN (17:13)
[2022-06-01] MEDS: traZODone HCL 100 MG TAB PO SCH (21:08)
[2022-06-02] MEDS: BENZOCAINE/MENTHOL LOZENG 1 EACH LOZENGE MUCOUS MEM PRN ×3 (02:33→15:50)
[2022-06-02] MEDS: INSULIN ASPART (NovoLOG) 100 UNIT/ML VIAL SQ SCH ×3 (08:52→17:25)
[2022-06-02] MEDS: ATORVASTATIN 20 MG TAB PO SCH (08:55)
[2022-06-02] MEDS: allopurinoL 100 MG TAB PO SCH ×2 (08:55→20:20)
[2022-06-02] MEDS: OXcarbazepine 300 MG TAB PO SCH ×2 (09:30→20:22)
[2022-06-02] MEDS: lisinopriL 20 MG TAB PO SCH (09:30)
[2022-06-02] MEDS: LORazepam 1 MG TAB PO PRN (10:29)
--- NOTE | 2022-06-02 11:41 | P.PN ---
Progress Note - Text Progress Note Date: 06/02/22 Interval History: Patient was seen sitting in the lounge today talking with another patient and was agreeable to speak to repairer typewriter. Patient continues to be confrontational and argumentative with repairer typewriter. He states that he is "worrying about the [place] and water" and states that these will try up not be able to sustain human life in [place]. He claims that he is also having racing thoughts. He continues to state that he does not want to take medication that is not agreeable to treatment. He has been refusing his medications. He states that the medications are "from the [place] and they cause health problems and side effects and I don't want them". He continues to be illogical at times however is more cooperative and calmer. He is continuing to endorse several delusions loosely formed. He is denying any depression or anxiety at this time. He continues to state that he hears voices including his father and also his uncle. At this time patient denies any suicidal or homical ideations, intent or plan. Patient denies any visual hallucinations and denies any paranoia or delusions. She is refusing medications at this time. Mental Status Exam: General Appearance: Patient appears to be overweight, stated age is alert, difficult to redirect. Patient appears to have marginal hygiene and grooming. Behavior: Patient is seated without any agitated behavior. demanding, less Paranoid, bizarre Speech: Patient's speech is talkative, improving mildly Mood/Affect: Patient reports their mood is "ok", affect is congruent and constricted. Suicidality/Homicidality: Patient denies having any homicidal ideation intent or plan. Denies any suicidal ideations intent or plan Perceptions: Patient denies any visual hallucinations and admits to auditory hallucinations from his father and uncle. Though content/process: Patient is illogical, loose associations, improving mil dly. He is bizarre in his thought content. Multiple loosely formed delusions. Memory and concentration: AOX3, grossly intact for the purposes of this session Judgment and insight: poor IMPRESSIONS: Bipolar disorder, current episode joya with psychotic features Cannabis use disorder Plan: -Patient continues to meet criteria for inpatient psychiatric admission for symptom stabilization and safety. Patient has not signed adult voluntary form and medication consent and was placed in patient's chart. -Medications: Trileptal 300 mg twice a day for mood stabilization, Prolixin 3 mg twice a day for psychosis/mood stabilization. Trazodone 100 mg daily at bedtime for sleep. PATIENT IS NOT TAKING MEDS -When necessary Ativan and Haldol for agitation/aggression. -NRT - not needed as patient does not smoke -SW on board for discharge planning. Encouraged the patient to participate in milieu. Currently awaiting deferral with corporate associate attorney and court date.
[2022-06-02 20:21] LABS: Glucose,Whole Blood 111 mg/dL (70-110)
--- NOTE | 2022-06-02 20:26 | P.PN ---
Progress Note - Text Progress Note Date: 06/02/22 - Chief Complaint Psychosis Hospital course: This is a 47-year-old patient, follows with Dr. Patel. Patient was transferred here from an outside hospital. Up in the [facility] region. Patient was petitioned. Petition had said that patient thought he was King Lamont and his father is Armani gibbs. He says he works for [employer]. His difficult to get the history from the patient and he keeps talking about connections to sai, and an politicians. He is rather concerned about his CPAP that is left in his truck near the previous hospital. His appetite is fair. Has a bowel movement every day. Denies any pain. Has trouble sleeping and he thinks his presentation to: Not able to use a CPAP. Denies any fever and chills. It seems patient has stopped taking his medications about a month ago. He reasons that aren't entirely unclear and he thinks that ulterior motives in him getting the medications. 05/30/2022: [place] and about [place] Started antipsychotics. Refusing to take his diabetic medications. Accu-Chek this morning 106. Also refused some of the medications. Patient still having flight of ideas. Psychotic symptoms persist. Oral intake fair. 05/31/2022: Patient instructed been refusing his medications. Taking the occasional medicine. Received IM Haldol last night. Not getting Accu-Cheks checked. Oral intake well. Had a BM. Ambulatory. Patient will need a court- ordered to give him his medications. 06/01/2022: Patient has been wii'll take the occasional medication.. Oral intake fair. Still refusing medications./sore throat. Requesting throat lozenges. I explained to the patient importance of getting his Accu-Cheks done. Has agreed for the same. 06/02/2022: Ambulating. Eating well. Even though I discussed with the patient yesterday patient has refused to take his Accu-Cheks checked. Today wants vitamin B12 supplement, is agreed to get his level checked tomorrow. Wants vitamin D because he has not exposed to sunshine. I told him I don't see any reason to prescribe magnesium Active Medications Acetaminophen (Acetaminophen Tab 325 Mg Tab) 650 mg PO Q4HR PRN PRN Reason: Pain/Discomfort Al Hydroxide/Mg Hydroxide (Mag Hydrox/Al Hydrox/Simeth 30 Ml Cup) 30 ml PO Q4HR PRN PRN Reason: GI Upset Allopurinol (Allopurinol 100 Mg Tab) 100 mg PO BID [facility] Last Admin: 06/02/22 20:20 Dose: 100 mg Atorvastatin Calcium (Atorvastatin 20 Mg Tab) 20 mg PO DAILY [facility] Last Admin: 06/02/22 08:55 Dose: 20 mg Benzocaine/Menthol (Benzocaine/Menthol Lozeng 1 Each Lozenge) 1 each MUCOUS MEM Q4HR PRN PRN Reason: Cough Last Admin: 06/02/22 15:50 Dose: 1 each Chlorpromazine HCl (Chlorpromazine 25 Mg Tab) 75 mg PO Q6HR PRN PRN Reason: Agitation Chlorpromazine HCl (Chlorpromazine 25 Mg/Ml 2 Ml Amp) 75 mg IM Q6HR PRN PRN Reason: Agitation Dextrose/Water (Dextrose 50% Syringe 50 Ml) 25 ml IVP PER PROTOCOL PRN; Protocol PRN Reason: Hypoglycemia Dextrose/Water (Dextrose 50% Syringe 50 Ml) 50 ml IVP PER PROTOCOL PRN; Pr otocol PRN Reason: Hypoglycemia Diphenhydramine HCl (Diphenhydramine 50 Mg/Ml 1 Ml Vial) 50 mg IM Q6HR PRN PRN Reason: Agitation or Acute Psychosis Diphenhydramine HCl (Diphenhydramine 25 Mg Cap) 50 mg PO Q6HR PRN PRN Reason: Agitation or Acute Psychosis Last Admin: 05/31/22 04:36 Dose: 50 mg Fluphenazine HCl (Fluphenazine 1 Mg Tab) 3 mg PO BID [facility] Last Admin: 06/02/22 20:21 Dose: Not Given Insulin Aspart (Insulin Aspart (Novolog) 100 Unit/Ml Vial) 0 unit SQ AC-TID [facility]; Protocol Last Admin: 06/02/22 17:25 Dose: Not Given Lisinopril (Lisinopril 20 Mg Tab) 20 mg PO DAILY [facility] Last Admin: 06/02/22 09:30 Dose: Not Given Lorazepam (Lorazepam 1 Mg/0.5 Ml Vial) 2 mg IM Q6HR PRN PRN Reason: Agitation or Acute Anxiety Last Admin: 05/30/22 19:23 Dose: 2 mg Lorazepam (Lorazepam 1 Mg Tab) 2 mg PO Q6HR PRN PRN Reason: Agitation or Acute Anxiety Last Admin: 06/02/22 10:29 Dose: 2 mg Magnesium Hydroxide (Magnesium Hydroxide 2,400 Mg/10 Ml Cup) 2,400 mg PO DAILY PRN PRN Reason: Constipation Oxcarbazepine (Oxcarbazepine 300 Mg Tab) 300 mg PO BID [facility] Last Admin: 06/02/22 20:22 Dose: Not Given Trazodone HCl (Trazodone Hcl 100 Mg Tab) 100 mg PO HS [facility] Last Admin: 06/01/22 21:08 Dose: Not Given Past medical history to include: Diabetes, hypertension, gout or kidney stones, bilateral carpal tunnel syndrome, sleep apnea, bipolar Social history: Apparently is homeless. At some point he was staying with his mother. Denies history of any smoking alcohol or use of any recreational drugs Physical examination: VITAL SIGNS: 97.7, 109, 16, 09/02/1974, 98% room air GENERAL: sitting up comfortable EYES: Pupils equal. Conjunctiva normal. HEENT: External appearance of nose and ears normal, oral cavity grossly normal. NECK: JVD not raised; masses not palpable. HEART: First and second heart sounds are normal; no edema. LUNGS: Respiratory rate normal; clear to auscultation. ABDOMEN: Soft, nontender, liver spleen not palpable, no masses palpable. PSYCH: Does answer questions but psychotic answers Assessment and plan: -Bipolar disorder with current episode of joya with psychotic features.: unControlled On antipsychotic per psychiatry -Morbid obesity BMI 49.4 Weight loss measures -Chronic gout Allopurinol -Hyperlipidemia Lipitor -Essential hypertension Zestril 20 mg a day-refusing to take medications -Diabetes mellitus type 2, oral hypoglycemic patient has been refusing Accu-Cheks Check a B12 level. Patient still refusing Accu-Cheks. Also refusing most of his medications. Follow with psychiatry. Thank you Dr. Velazco
[2022-06-03] MEDS: BENZOCAINE/MENTHOL LOZENG 1 EACH LOZENGE MUCOUS MEM PRN ×3 (02:14→16:58)
[2022-06-03] MEDS: traZODone HCL 100 MG TAB PO SCH (05:09)
[2022-06-03] MEDS: INSULIN ASPART (NovoLOG) 100 UNIT/ML VIAL SQ SCH ×3 (07:56→18:03)
[2022-06-03] MEDS: LORazepam 1 MG TAB PO PRN (07:58)
[2022-06-03] MEDS: allopurinoL 100 MG TAB PO SCH (07:58)
[2022-06-03] MEDS: ATORVASTATIN 20 MG TAB PO SCH (08:20)
[2022-06-03] MEDS: LORazepam 1 MG/0.5 ML VIAL IM PRN (08:44)
[2022-06-03] MEDS: chlorproMAZINE 25 MG/ML 2 ML AMP IM PRN (08:45)
[2022-06-03] MEDS: lisinopriL 20 MG TAB PO SCH (09:38)
[2022-06-03] MEDS: OXcarbazepine 300 MG TAB PO SCH (09:38)
--- NOTE | 2022-06-03 11:39 | P.PN ---
Progress Note - Text Progress Note Date: 06/03/22 - Chief Complaint Psychosis Hospital course: This is a 47-year-old patient, follows with Dr. Patel. Patient was transferred here from an outside hospital. Up in the [facility] region. Patient was petitioned. Petition had said that patient thought he was [place] and his father is Armani Yeb[employer] Digitaljanell gibbs. He says he works for [employer]. His difficult to get the history from the patient and he keeps talking about connections to [employer], and an politicians. He is rather concerned about his CPAP that is left in his truck near the previous hospital. His appetite is fair. Has a bowel movement every day. Denies any pain. Has trouble sleeping and he thinks his presentation to: Not able to use a CPAP. Denies any fever and chills. It seems patient has stopped taking his medications about a month ago. He reasons that aren't entirely unclear and he thinks that ulterior motives in him getting the medications. 05/30/2022: Patient [place] up and about in the [place]. Started antipsychotics. Refusing to take his diabetic medications. Accu-Chek this morning 106. Also refused some of the medications. Patient still having flight of ideas. Psychotic symptoms persist. Oral intake fair. 05/31/2022: Patient instructed been refusing his medications. Taking the occasional medicine. Received IM Haldol last night. Not getting Accu-Cheks checked. Oral intake well. Had a BM. Ambulatory. Patient will need a court- ordered to give him his medications. 06/01/2022: Patient has been wii'll take the occasional medication.. Oral intake fair. Still refusing medications./sore throat. Requesting throat lozenges. I explained to the patient importance of getting his Accu-Cheks done. Has agreed for the same. 06/02/2022: Ambulating. Eating well. Even though I discussed with the patient yesterday patient has refused to take his Accu-Cheks checked. Today wants vitamin B12 supplement, is agreed to get his level checked tomorrow. Wants vitamin D because he has not exposed to sunshine. I told him I don't see any reason to prescribe magnesium 06/03/2022: Patient earlier today received sedative IM medications. A bit lethargic. He would answer questions. He states-he should not have called the medication is supposed to be for his roommate. He declined to get his B12 level checked this morning. Eating well. Still refusing most medications. Active Medications Acetaminophen (Acetaminophen Tab 325 Mg Tab) 650 mg PO Q4HR PRN PRN Reason: Pain/Discomfort Al Hydroxide/Mg Hydroxide (Mag Hydrox/Al Hydrox/Simeth 30 Ml Cup) 30 ml PO Q4HR PRN PRN Reason: GI Upset Allopurinol (Allopurinol 100 Mg Tab) 100 mg PO BID [facility] Last Admin: 06/03/22 07:58 Dose: 100 mg Atorvastatin Calcium (Atorvastatin 20 Mg Tab) 20 mg PO DAILY [facility] Last Admin: 06/03/22 08:20 Dose: Not Given Benzocaine/Menthol (Benzocaine/Menthol Lozeng 1 Each Lozenge) 1 each MUCOUS MEM Q4HR PRN PRN Reason: Cough Last Admin: 06/03/22 07:58 Dose: 1 each Chlorpromazine HCl (Chlorpromazine 25 Mg Tab) 75 mg PO Q6HR PRN PRN Reason: Agitation Chlorpromazine HCl (Chlorpromazine 25 Mg/Ml 2 Ml Amp) 75 mg IM Q6HR PRN PRN Reason: Agitation Last Admin: 06/03/22 08:45 Dose: 75 mg Dextrose/Water (Dextrose 50% Syringe 50 Ml) 25 ml IVP PER PROTOCOL PRN; Protocol PRN Reason: Hypoglycemia Dextrose/Water (Dextrose 50% Syringe 50 Ml) 50 ml IVP PER PROTOCOL PRN; Protocol PRN Reason: Hypoglycemia Diphenhydramine HCl (Diphenhydramine 50 Mg/Ml 1 Ml Vial) 50 mg IM Q6HR PRN PRN Reason: Agitation or Acute Psychosis Last Admin: 06/03/22 08:45 Dose: 50 mg Diphenhydramine HCl (Diphenhydramine 25 Mg Cap) 50 mg PO Q6HR PRN PRN Reason: Agitation or Acute Psychosis Last Admin: 05/31/22 04:36 Dose: 50 mg Fluphenazine HCl (Fluphenazine 1 Mg Tab) 3 mg PO BID [facility] Last Admin: 06/03/22 08:23 Dose: Not Given Insulin Aspart (Insulin Aspart (Novolog) 100 Unit/Ml Vial) 0 unit SQ AC-TID [facility]; Protocol Last Admin: 06/03/22 07:56 Dose: Not Given Lisinopril (Lisinopril 20 Mg Tab) 20 mg PO DAILY [facility] Last Admin: 06/03/22 09:38 Dose: Not Given Lorazepam (Lorazepam 1 Mg/0.5 Ml Vial) 2 mg IM Q6HR PRN PRN Reason: Agitation or Acute Anxiety Last Admin: 06/03/22 08:44 Dose: 2 mg Lorazepam (Lorazepam 1 Mg Tab) 2 mg PO Q6HR PRN PRN Reason: Agitation or Acute Anxiety Last Admin: 06/03/22 07:58 Dose: 2 mg Magnesium Hydroxide (Magnesium Hydroxide 2,400 Mg/10 Ml Cup) 2,400 mg PO DAILY PRN PRN Reason: Constipation Oxcarbazepine (Oxcarbazepine 300 Mg Tab) 300 mg PO BID [facility] Last Admin: 06/03/22 09:38 Dose: Not Given Trazodone HCl (Trazodone Hcl 100 Mg Tab) 100 mg PO HS [facility] Last Admin: 06/03/22 05:09 Dose: Not Given Past medical history to include: Diabetes, hypertension, gout or kidney stones, bilateral carpal tunnel syndrome, sleep apnea, bipolar Social history: Apparently is homeless. At some point he was staying with his mother. Denies history of any smoking alcohol or use of any recreational drugs Physical examination: VITAL SIGNS: No vital signs from this morning. GENERAL: Laying in bed, face down. EYES: Pupils equal. Conjunctiva normal. HEENT: External appearance of nose and ears normal, oral cavity grossly normal. NECK: JVD not raised; masses not palpable. HEART: First and second heart sounds are normal; no edema. LUNGS: Respiratory rate normal; clear to auscultation. ABDOMEN: Soft, nontender, liver spleen not palpable, no masses palpable. PSYCH: Does answer questions but still psychotic. Assessment and plan: -Bipolar disorder with current episode of joya with psychotic features.: unControlled On antipsychotic per psychiatry. Has been refusing medications. -Morbid obesity BMI 49.4 Weight loss measures -Chronic gout Allopurinol -Hyperlipidemia Lipitor -Essential hypertension Zestril 20 mg a day-refusing to take medications -Diabetes mellitus type 2, oral hypoglycemic patient has been refusing Accu-Cheks Patient refused B12 blood draw. Still not taking his medications. Thank you Dr. Velazco
--- NOTE | 2022-06-03 11:48 | P.PN ---
Progress Note - Text Progress Note Date: 06/03/22 Interval History: Patient was seen sitting on his bed today and was agreeable to speak to typewriter mechanic. Patient greeted typewriter mechanic however states "I want to talk to the other doctor". He claims that he got in a "fight" with another patient on the unit over the TV and how loud it was. He states that the other patient was mainly instigating it and "told on me". He states that he then received a prn injection and has been in his room since. He continues to be illogical at times and have loose associ ations. The racing thoughts depression and anxiety seem to be improving mildly. Patient remains delusional during conversation. He continues to state that he hears voices including his father and also his uncle. At this time patient denies any suicidal or homical ideations, intent or plan. Patient denies any visual hallucinations and denies any paranoia or delusions. She is refusing medications at this time. Mental Status Exam: General Appearance: Patient appears to be overweight, stated age is alert, difficult to redirect. Patient appears to have marginal hygiene and grooming. Behavior: Patient is seated without any agitated behavior. Demanding, less Paranoid Speech: Patient's speech is less talkative Mood/Affect: Patient reports their mood is "mad", affect is congruent and appears upset Suicidality/Homicidality: Patient denies having any homicidal ideation intent or plan. Denies any suicidal ideations intent or plan Perceptions: Patient denies any visual hallucinations and admits to auditory hallucinations from his father and uncle. Though content/process: Patient has loose associations, improving mildly. He is bizarre in his thought content. Multiple loosely formed delusions, improving mildly Memory and concentration: AOX3, grossly intact for the purposes of this session Judgment and insight: poor IMPRESSIONS: Bipolar disorder, current episode joya with psychotic features Cannabis use disorder Plan: -Patient continues to meet criteria for inpatient psychiatric admission for symptom stabilization and safety. Patient has not signed adult voluntary form and medication consent and was placed in patient's chart. -Medications: Trileptal 300 mg twice a day for mood stabilization, Prolixin 3 mg twice a day for psychosis/mood stabilization. Trazodone 100 mg daily at bedtime for sleep. PATIENT IS NOT TAKING MEDS -When necessary Ativan and Haldol for agitation/aggression. -NRT - not needed as patient does not smoke -SW on board for discharge planning. Encouraged the patient to participate in milieu. patient is apparently on an MANUELA order through [facility], currently awaiting order to be faxed in.
[2022-06-04] MEDS: BENZOCAINE/MENTHOL LOZENG 1 EACH LOZENGE MUCOUS MEM PRN ×4 (05:59→21:24)
[2022-06-04] MEDS: allopurinoL 100 MG TAB PO SCH ×3 (06:53→21:17)
[2022-06-04] MEDS: OXcarbazepine 300 MG TAB PO SCH ×3 (06:55→21:18)
[2022-06-04] MEDS: traZODone HCL 100 MG TAB PO SCH ×2 (06:56→21:18)
[2022-06-04] MEDS: INSULIN ASPART (NovoLOG) 100 UNIT/ML VIAL SQ SCH ×3 (08:00→15:56)
[2022-06-04] MEDS: ATORVASTATIN 20 MG TAB PO SCH (09:21)
[2022-06-04] MEDS: lisinopriL 20 MG TAB PO SCH (09:22)
[2022-06-04] MEDS: LORATADINE 10 MG TAB PO PRN (10:50)
--- NOTE | 2022-06-04 11:32 | P.PN ---
Progress Note - Text Progress Note Date: 06/04/22 Interval History: Patient was seen in the hallway speaking to another patient and was agreeable to speech regular in the office. Patient continued taking continues to be argumentative with the teletypewriter operator today about his medications. When asked about a court order, patient states "I'm not on any order at all, it's all fake documents that came out of [facility]. She states she believes that the medications are "all made of chemicals designed to hurt us". He continues to not have trust in the system and also his treatment team in the hospital. He continues to endorse several delusions which were loosely formed. He appears to be less irritable today of her continues to be argumentative. He states that he is sleeping fairly at nighttime. He continues to be illogical at times and have loose associations. He is denying any depression or anxiety at this time however does claim that he is "upset" at being in the hospital against his will. Patient remains delusional during conversation. Today patient is denying any auditory hallucinations. At this time patient denies any suicidal or homical ideations, intent or plan. Patient denies any visual hallucinations and denies any paranoia or delusions. he is refusing medications at this time. Mental Status Exam: General Appearance: Patient appears to be overweight, stated age is alert, difficult to redirect. Patient appears to have marginal hygiene and grooming. Behavior: Patient is seated without any agitated behavior. Demanding, argumentative. Speech: Patient's speech is less talkative Mood/Affect: Patient reports their mood is "upset", affect is congruent Suicidality/Homicidality: Patient denies having any homicidal ideation intent or plan. Denies any suicidal ideations intent or plan Perceptions: Patient denies any visual hallucinations and admits to auditory hallucinations from his father and uncle. Though content/process: Patient has loose associations, improving mildly. He is bizarre in his thought content. Multiple loosely formed delusions Memory and concentration: AOX3, grossly intact for the purposes of this session Judgment and insight: poor IMPRESSIONS: Bipolar disorder, current episode joya with psychotic features Cannabis use disorder Plan: -Patient continues to meet criteria for inpatient psychiatric admission for symptom stabilization and safety. Patient has not signed adult voluntary form and medication consent and was placed in patient's chart. -Medications: Trileptal 300 mg twice a day for mood stabilization, Prolixin 3 mg twice a day for psychosis/mood stabilization. Trazodone 100 mg daily at bedtime for sleep. PATIENT IS NOT TAKING MEDS -When necessary Ativan and Haldol for agitation/aggression. -NRT - not needed as patient does not smoke -SW on board for discharge planning. Encouraged the patient to participate in milieu. patient is apparently on an MANUELA order through [facility], currently awaiting order to be faxed in before treatment can be started.
[2022-06-04] MEDS ORDERED: flUPHENAZine 2.5 MG/ML (MDV) 10 ML VIAL IM PRN (12:55)
[2022-06-05] MEDS: BENZOCAINE/MENTHOL LOZENG 1 EACH LOZENGE MUCOUS MEM PRN ×2 (06:06→16:44)
[2022-06-05 06:26] VITALS: RESP 16
[2022-06-05 07:47] LABS: Glucose,Whole Blood 108 mg/dL (70-110)
[2022-06-05] MEDS: INSULIN ASPART (NovoLOG) 100 UNIT/ML VIAL SQ SCH ×3 (07:52→18:15)
[2022-06-05] MEDS: OXcarbazepine 300 MG TAB PO SCH ×2 (08:43→20:11)
[2022-06-05] MEDS: allopurinoL 100 MG TAB PO SCH ×2 (08:43→20:11)
[2022-06-05] MEDS: ATORVASTATIN 20 MG TAB PO SCH (08:43)
[2022-06-05] MEDS: LORATADINE 10 MG TAB PO PRN (08:45)
[2022-06-05] MEDS: lisinopriL 20 MG TAB PO SCH (09:46)
[2022-06-05] MEDS ORDERED: HALOPERIDOL LACTATE 5 MG/ML 1 ML VIAL IM PRN (10:22)
--- NOTE | 2022-06-05 10:40 | P.PN ---
Progress Note - Text Progress Note Date: 06/05/22 Interval History: Patient was seen in the hallway and was agreeable to speak to telegraphic typewriter operator chief in the of fice. Patient continues to be hostile with telegraphic typewriter operator chief and argumentative as well. He claims that he took the Trileptal this morning however refused the Prolixin. He stated that the Prolixin made him have "diarrhea and blood in my stool". He claims that he is upset for telegraphic typewriter operator chief and claims that "you're not supposed to do harm and you're harming me". He continues to endorse several loosely formed delusions and appears to be impulsive and upset with telegraphic typewriter operator chief and was difficult to redirect in conversation. He claims that he wants to "mary you" at this time and wants to speak to the patient rights advocate. Patient remains delusional during conversation talking about consipracies against him. Today patient is denying any auditory hallucinations. At this time patient denies any suicidal or homical ideations, intent or plan. Patient denies any visual hallucinations and denies any paranoia or delusions. he is refusing medications at this time. Mental Status Exam: General Appearance: Patient appears to be overweight, stated age is alert, difficult to redirect. Patient appears to have marginal hygiene and grooming. Behavior: Patient is seated without any agitated behavior. Demanding, argumenta tive. hostile. Speech: Patient's speech is talkative Mood/Affect: Patient reports their mood is "mad", affect is congruent Suicidality/Homicidality: Patient denies having any homicidal ideation intent or plan. Denies any suicidal ideations intent or plan Perceptions: Patient denies any visual hallucinations or auditory hallucinations Though content/process: Patient has loose associations, improving mildly. He is bizarre in his thought content. Multiple loosely formed delusions Memory and concentration: AOX3, grossly intact for the purposes of this session Judgment and insight: poor IMPRESSIONS: Bipolar disorder, current episode joya with psychotic features Cannabis use disorder Plan: -Patient continues to meet criteria for inpatient psychiatric admission for symptom stabilization and safety. Patient has not signed adult voluntary form and medication consent and was placed in patient's chart. -Medications: Trileptal 300 mg twice a day for mood stabilization, d/c prolixin due to poor tolerability. Trazodone 100 mg daily at bedtime for sleep. added abilify 5 mg po daily for psychosis/mood stabilization. if patient refuses then Haldol IM as back up. -When necessary Ativan and Haldol for agitation/aggression. -NRT - not needed as patient does not smoke -SW on board for discharge planning. Encouraged the patient to participate in milieu. patient is on an active MANUELA order through [facility] which started 04/01/22.
[2022-06-05] MEDS: ARIPiprazole 5 MG TAB PO SCH (11:54)
[2022-06-05 12:58] LABS: Glucose,Whole Blood 94 mg/dL (70-110)
--- NOTE | 2022-06-05 17:14 | P.PN ---
Progress Note - Text Progress Note Date: 06/05/22 - Chief Complaint Psychosis Hospital course: This is a 47-year-old patient, follows with Dr. Patel. Patient was transferred here from an outside hospital. [facility] Patient was petitioned. Petition had said that patient thought he was [place] and his father is Armani Yeboah[employer]ivity Softwarejanell gibbs. He says he works for [employer]. His difficult to get the history from the patient and he keeps talking about connections to sai, and an politicians. He is rather concerned about his CPAP that is left in his truck near the previous hospital. His appetite is fair. Has a bowel movement every day. Denies any pain. Has trouble sleeping and he thinks his presentation to: Not able to use a CPAP. Denies any fever and chills. It seems patient has stopped taking his medications about a month ago. He reasons that aren't entirely unclear and he thinks that ulterior motives in him getting the medications. 05/30/2022: [place] up and about [place]. Started antipsychotics. Refusing to take his diabetic medications. Accu-Chek this morning 106. Also refused some of the medications. Patient still having flight of ideas. Psychotic symptoms persist. Oral intake fair. 05/31/2022: Patient instructed been refusing his medications. Taking the occasional medicine. Received IM Haldol last night. Not getting Accu-Cheks checked. Oral intake well. Had a BM. Ambulatory. Patient will need a court- ordered to give him his medications. 06/01/2022: Patient has been wii'll take the occasional medication.. Oral intake fair. Still refusing medications./sore throat. Requesting throat lozenges. I explained to the patient importance of getting his Accu-Cheks done. Has agreed for the same. 06/02/2022: Ambulating. Eating well. Even though I discussed with the patient yesterday patient has refused to take his Accu-Cheks checked. Today wants vitamin B12 supplement, is agreed to get his level checked tomorrow. Wants vitamin D because he has not exposed to sunshine. I told him I don't see any reason to prescribe magnesium 06/03/2022: Patient earlier today received sedative IM medications. A bit lethargic. He would answer questions. He states-he should not have called the medication is supposed to be for his roommate. He declined to get his B12 level checked this morning. Eating well. Still refusing most medications. 06/05/2022: Patient did take some of his psychiatry medications. His blood pressure has been running borderline. Refuses taking any medication currently. His Accu-Chek remains controlled. Doubt he has diabetes. We'll discontinue Accu-Chek. Patient up and about in the hallway. Eating well. Still delusional. Active Medications Acetaminophen (Acetaminophen Tab 325 Mg Tab) 650 mg PO Q4HR PRN PRN Reason: Pain/Discomfort Al Hydroxide/Mg Hydroxide (Mag Hydrox/Al Hydrox/Simeth 30 Ml Cup) 30 ml PO Q4HR PRN PRN Reason: GI Upset Allopurinol (Allopurinol 100 Mg Tab) 100 mg PO BID [facility] Last Admin: 06/05/22 08:43 Dose: 100 mg Aripiprazole (Aripiprazole 5 Mg Tab) 5 mg PO DAILY [facility] Last Admin: 06/05/22 11:54 Dose: 5 mg Atorvastatin Calcium (Atorvastatin 20 Mg Tab) 20 mg PO DAILY [facility] Last Admin: 06/05/22 08:43 Dose: 20 mg Benzocaine/Menthol (Benzocaine/Menthol Lozeng 1 Each Lozenge) 1 each MUCOUS MEM Q4HR PRN PRN Reason: Cough Last Admin: 06/05/22 16:44 Dose: 1 each Chlorpromazine HCl (Chlorpromazine 25 Mg Tab) 75 mg PO Q6HR PRN PRN Reason: Agitation Chlorpromazine HCl (Chlorpromazine 25 Mg/Ml 2 Ml Amp) 75 mg IM Q6HR PRN PRN Reason: Agitation Last Admin: 06/03/22 08:45 Dose: 75 mg Dextrose/Water (Dextrose 50% Syringe 50 Ml) 25 ml IVP PER PROTOCOL PRN; Protocol PRN Reason: Hypoglycemia Dextrose/Water (Dextrose 50% Syringe 50 Ml) 50 ml IVP PER PROTOCOL PRN; Protocol PRN Reason: Hypoglycemia Diphenhydramine HCl (Diphenhydramine 50 Mg/Ml 1 Ml Vial) 50 mg IM Q6HR PRN PRN Reason: Agitation or Acute Psychosis Last Admin: 06/03/22 08:45 Dose: 50 mg Diphenhydramine HCl (Diphenhydramine 25 Mg Cap) 50 mg PO Q6HR PRN PRN Reason: Agitation or Acute Psychosis Last Admin: 05/31/22 04:36 Dose: 50 mg Haloperidol Lactate (Haloperidol Lactate 5 Mg/Ml 1 Ml Vial) 5 mg IM DAILY PRN PRN Reason: refusing PO abilify Insulin Aspart (Insulin Aspart (Novolog) 100 Unit/Ml Vial) 0 unit SQ AC-TID [facility]; Protocol Last Admin: 06/05/22 14:54 Dose: Not Given Lisinopril (Lisinopril 20 Mg Tab) 20 mg PO DAILY [facility] Last Admin: 06/05/22 09:46 Dose: Not Given Loratadine (Loratadine 10 Mg Tab) 10 mg PO DAILY PRN PRN Reason: Congestion Last Admin: 06/05/22 08:45 Dose: 10 mg Lorazepam (Lorazepam 1 Mg/0.5 Ml Vial) 2 mg IM Q6HR PRN PRN Reason: Agitation or Acute Anxiety Last Admin: 06/03/22 08:44 Dose: 2 mg Lorazepam (Lorazepam 1 Mg Tab) 2 mg PO Q6HR PRN PRN Reason: Agitation or Acute Anxiety Last Admin: 06/03/22 07:58 Dose: 2 mg Magnesium Hydroxide (Magnesium Hydroxide 2,400 Mg/10 Ml Cup) 2,400 mg PO DAILY PRN PRN Reason: Constipation Oxcarbazepine (Oxcarbazepine 300 Mg Tab) 300 mg PO BID [facility] Last Admin: 06/05/22 08:43 Dose: 300 mg Trazodone HCl (Trazodone Hcl 100 Mg Tab) 100 mg PO HS [facility] Last Admin: 06/04/22 21:18 Dose: Not Given Past medical history to include: Diabetes, hypertension, gout or kidney stones, bilateral carpal tunnel syndrome, sleep apnea, bipolar Social history: Apparently is homeless. At some point he was staying with his mother. Denies history of any smoking alcohol or use of any recreational drugs Physical examination: VITAL SIGNS: 97.5, 104, 16, 129.71, 97% room air. Blood pressure 1 4074 yesterday. GENERAL: Comfortable awake EYES: Pupils equal. Conjunctiva normal. HEENT: External appearance of nose and ears normal, oral cavity grossly normal. NECK: JVD not raised; masses not palpable. HEART: First and second heart sounds are normal; no edema. LUNGS: Respiratory rate normal; clear to auscultation. ABDOMEN: Soft, nontender, liver spleen not palpable, no masses palpable. PSYCH: Does answer questions but still psychotic. Assessment and plan: -Bipolar disorder with current episode of joya with psychotic features.: unControlled On antipsychotic per psychiatry. He started to take his medications. -Morbid obesity BMI 49.4 Weight loss measures -Chronic gout Allopurinol -Hyperlipidemia Lipitor -Essential hypertension, borderline DC Zestril. Changed to a cardiac diet. -Diabetes mellitus type 2, : Ruled out Stop Accu-Cheks DC Zestril. Changed to a cardiac diet. DC Accu-Cheks. Thank you Dr. Velazco
[2022-06-05 17:54] LABS: Glucose,Whole Blood 91 mg/dL (70-110)
[2022-06-05 20:00] LABS: Glucose,Whole Blood 147 mg/dL (70-110)
[2022-06-05] MEDS: traZODone HCL 100 MG TAB PO SCH (20:11)
[2022-06-06] MEDS: INSULIN ASPART (NovoLOG) 100 UNIT/ML VIAL SQ SCH ×3 (08:18→16:29)
[2022-06-06] MEDS: ATORVASTATIN 20 MG TAB PO SCH (08:19)
[2022-06-06] MEDS: allopurinoL 100 MG TAB PO SCH ×2 (08:19→21:12)
[2022-06-06] MEDS: OXcarbazepine 300 MG TAB PO SCH ×2 (08:19→21:12)
[2022-06-06] MEDS: ARIPiprazole 5 MG TAB PO SCH (08:19)
[2022-06-06] MEDS: BENZOCAINE/MENTHOL LOZENG 1 EACH LOZENGE MUCOUS MEM PRN ×2 (08:29→21:14)
--- NOTE | 2022-06-06 10:39 | P.PN ---
Progress Note - Text Progress Note Date: 06/06/22 Interval History: Patient was seen sitting in a group today and when va underwriter approached patient to speak, patient stated "I'm not talking to you today leave me alone, you can write whatever you want in your note about me". Patient was asked again if he wanted to speak to va underwriter and patient stated clearly "No". Patient has been taking his medications. apparently has not been sleeping well according nursing notes Mental Status Exam: General Appearance: Patient appears to be overweight, stated age is alert, difficult to redirect. Patient appears to have marginal hygiene and grooming. Behavior: Patient is seated without any agitated behavior. uncooperative Speech: Patient's speech is fluent Mood/Affect: Unable to assess Suicidality/Homicidality: Unable to assess Perceptions: Unable to assess Though content/process: Demanding, goal oriented. [place] Memory and concentration: Unable to assess Judgment and insight: poor IMPRESSIONS: Bipolar disorder, current episode joya with psychotic features Cannabis use disorder Plan: -Patient continues to meet criteria for inpatient psychiatric admission for symptom stabilization and safety. Patient has not signed adult voluntary form and medication consent and was placed in patient's chart. -Medications: Trileptal 300 mg twice a day for mood stabilization, increase Trazodone 150 mg daily at bedtime for sleep. increase abilify 7.5 mg po for tomorrow and to 10 mg daily for psychosis/mood stabilization on thursday. if patient refuses PO then Haldol IM as back up. -When necessary Ativan and Haldol for agitation/aggression. -NRT - not needed as patient does not smoke -SW on board for discharge planning. Encouraged the patient to participate in milieu. patient is on an active MANUELA order through [facility] which started 04/01/22.
--- NOTE | 2022-06-06 18:03 | P.PN ---
Progress Note - Text Progress Note Date: 06/06/22 - Chief Complaint Psychosis Hospital course: This is a 47-year-old patient, follows with Dr. Patel. Patient was transferred here from an outside hospital. Up in the [facility] region. Patient was petitioned. Petition had said that patient thought he was [place] and his father is Armani Yeboah[employer] Surgeryjanell gibbs. He says he works for [employer]. His difficult to get the history from the patient and he keeps talking about connections to sai, and an politicians. He is rather concerned about his CPAP that is left in his truck near the previous hospital. His appetite is fair. Has a bowel movement every day. Denies any pain. Has trouble sleeping and he thinks his presentation to: Not able to use a CPAP. Denies any fever and chills. It seems patient has stopped taking his medications about a month ago. He reasons that aren't entirely unclear and he thinks that ulterior motives in him getting the medications. 05/30/2022: Patient [place] and about [place]. Started antipsychotics. Refusing to take his diabetic medications. Accu-Chek this morning 106. Also refused some of the medications. Patient still having flight of ideas. Psychotic symptoms persist. Oral intake fair. 05/31/2022: Patient instructed been refusing his medications. Taking the occasional medicine. Received IM Haldol last night. Not getting Accu-Cheks checked. Oral intake well. Had a BM. Ambulatory. Patient will need a court- ordered to give him his medications. 06/01/2022: Patient has been wii'll take the occasional medication.. Oral intake fair. Still refusing medications./sore throat. Requesting throat lozenges. I explained to the patient importance of getting his Accu-Cheks done. Has agreed for the same. 06/02/2022: Ambulating. Eating well. Even though I discussed with the patient yesterday patient has refused to take his Accu-Cheks checked. Today wants vitamin B12 supplement, is agreed to get his level checked tomorrow. Wants vitamin D because he has not exposed to sunshine. I told him I don't see any reason to prescribe magnesium 06/03/2022: Patient earlier today received sedative IM medications. A bit lethargic. He would answer questions. He states-he should not have called the medication is supposed to be for his roommate. He declined to get his B12 level checked this morning. Eating well. Still refusing most medications. 06/05/2022: Patient did take some of his psychiatry medications. His blood pressure has been running borderline. Refuses taking any medication currently. His Accu-Chek remains controlled. Doubt he has diabetes. We'll discontinue Accu-Chek. Patient up and about in the hallway. Eating well. Still delusional. 06/06/2022: Sitting and playing cards. Has been taking his medications. Some trouble sleeping last night. Psychiatrist nodes noted. Active Medications Acetaminophen (Acetaminophen Tab 325 Mg Tab) 650 mg PO Q4HR PRN PRN Reason: Pain/Discomfort Al Hydroxide/Mg Hydroxide (Mag Hydrox/Al Hydrox/Simeth 30 Ml Cup) 30 ml PO Q4HR PRN PRN Reason: GI Upset Allopurinol (Allopurinol 100 Mg Tab) 100 mg PO BID [facility] Last Admin: 06/06/22 08:19 Dose: 100 mg Aripiprazole (Aripiprazole 15 Mg Tab) 7.5 mg PO DAILY [facility] Stop: 06/07/22 23:00 Aripiprazole (Aripiprazole 10 Mg Tab) 10 mg PO DAILY [facility] Atorvastatin Calcium (Atorvastatin 20 Mg Tab) 20 mg PO DAILY [facility] Last Admin: 06/06/22 08:19 Dose: 20 mg Benzocaine/Menthol (Benzocaine/Menthol Lozeng 1 Each Lozenge) 1 each MUCOUS MEM Q4HR PRN PRN Reason: Cough Last Admin: 06/06/22 08:29 Dose: 1 each Chlorpromazine HCl (Chlorpromazine 25 Mg Tab) 75 mg PO Q6HR PRN PRN Reason: Agitation Chlorpromazine HCl (Chlorpromazine 25 Mg/Ml 2 Ml Amp) 75 mg IM Q6HR PRN PRN Reason: Agitation Last Admin: 06/03/22 08:45 Dose: 75 mg Dextrose/Water (Dextrose 50% Syringe 50 Ml) 25 ml IVP PER PROTOCOL PRN; Protocol PRN Reason: Hypoglycemia Dextrose/Water (Dextrose 50% Syringe 50 Ml) 50 ml IVP PER PROTOCOL PRN; Protocol PRN Reason: Hypoglycemia Diphenhydramine HCl (Diphenhydramine 50 Mg/Ml 1 Ml Vial) 50 mg IM Q6HR PRN PRN Reason: Agitation or Acute Psychosis Last Admin: 06/03/22 08:45 Dose: 50 mg Diphenhydramine HCl (Diphenhydramine 25 Mg Cap) 50 mg PO Q6HR PRN PRN Reason: Agitation or Acute Psychosis Last Admin: 05/31/22 04:36 Dose: 50 mg Haloperidol Lactate (Haloperidol Lactate 5 Mg/Ml 1 Ml Vial) 5 mg IM DAILY PRN PRN Reason: refusing PO abilify Insulin Aspart (Insulin Aspart (Novolog) 100 Unit/Ml Vial) 0 unit SQ AC-TID [facility]; Protocol Last Admin: 06/06/22 16:29 Dose: Not Given Loratadine (Loratadine 10 Mg Tab) 10 mg PO DAILY PRN PRN Reason: Congestion Last Admin: 06/05/22 08:45 Dose: 10 mg Lorazepam (Lorazepam 1 Mg/0.5 Ml Vial) 2 mg IM Q6HR PRN PRN Reason: Agitation or Acute Anxiety Last Admin: 06/03/22 08:44 Dose: 2 mg Lorazepam (Lorazepam 1 Mg Tab) 2 mg PO Q6HR PRN PRN Reason: Agitation or Acute Anxiety Last Admin: 06/03/22 07:58 Dose: 2 mg Magnesium Hydroxide (Magnesium Hydroxide 2,400 Mg/10 Ml Cup) 2,400 mg PO DAILY PRN PRN Reason: Constipation Oxcarbazepine (Oxcarbazepine 300 Mg Tab) 300 mg PO BID [facility] Last Admin: 06/06/22 08:19 Dose: 300 mg Trazodone HCl (Trazodone Hcl 50 Mg Tab) [address] [facility] Past medical history to include: Diabetes, hypertension, gout or kidney stones, bilateral carpal tunnel syndrome, sleep apnea, bipolar Social history: Apparently is homeless. At some point he was staying with his mother. Denies history of any smoking alcohol or use of any recreational drugs Physical examination: VITAL SIGNS: No vital signs done today. GENERAL: Sitting on a table and playing cards. EYES: Pupils equal. Conjunctiva normal. HEENT: External appearance of nose and ears normal, oral cavity grossly normal. NECK: JVD not raised; masses not palpable. HEART: First and second heart sounds are normal; no edema. LUNGS: Respiratory rate normal; clear to auscultation. ABDOMEN: Soft, nontender, liver spleen not palpable, no masses palpable. PSYCH: Does answer questions but still psychotic. Assessment and plan: -Bipolar disorder with current episode of joya with psychotic features.: unControlled On antipsychotic per psychiatry. Taking his medications. -Morbid obesity BMI 49.4 Weight loss measures -Chronic gout Allopurinol -Hyperlipidemia Lipitor -Essential hypertension, borderline DC Zestril. cardiac diet. -Diabetes mellitus type 2, : Ruled out Stop Accu-Cheks Patient agrees should take his medications. We will await vital signs. Thank you Dr. Velazco
[2022-06-06] MEDS: traZODone HCL 50 MG TAB PO SCH (21:12)
[2022-06-07] MEDS: BENZOCAINE/MENTHOL LOZENG 1 EACH LOZENGE MUCOUS MEM PRN ×3 (01:47→20:49)
[2022-06-07] MEDS ORDERED: ARIPiprazole 15 MG TAB PO SCH (09:00)
[2022-06-07] MEDS: OXcarbazepine 300 MG TAB PO SCH ×2 (09:37→20:48)
[2022-06-07] MEDS: INSULIN ASPART (NovoLOG) 100 UNIT/ML VIAL SQ SCH ×3 (09:37→15:07)
[2022-06-07] MEDS: ATORVASTATIN 20 MG TAB PO SCH (09:37)
[2022-06-07] MEDS: allopurinoL 100 MG TAB PO SCH ×2 (09:37→20:48)
[2022-06-07] MEDS: traZODone HCL 50 MG TAB PO SCH (20:48)
--- NOTE | 2022-06-07 21:41 | P.PN ---
Progress Note - Text Progress Note Date: 06/07/22 Interval history: Patient was seen playing cards with peers and was directable and agreeable to speak with production underwriter. He reports good mood and reports he has slept most of the day. At this time patient denies any suicidal or homicidal ideation, intent or plan. Denies any auditory or visual hallucinations. Patient denies any side effects from the medications and has been compliant with meds. Mental status exam: General Appearance: Patient appears to be stated age, obese, is alert, directable, and cooperative. Behavior: No agitated behavior. Patient is calm and directable Speech: Patient's speech is fluent and non-pressured. Mood/Affect: Mood is improving mildly, affect is congruent and constricted. Suicidality/Homicidality: Patient denies having any suicidal or homicidal ideation intent or plan. Perceptions: Patient denies any auditory or visual hallucinations. Though content/process: There is no evidence of any delusional thought content and thought process is linear and goal-directed. Memory and concentration: AOX3, grossly intact for the purposes of this session Judgment and insight: improving mildly Assessment/Plan: Continue with current diagnosis. Patient continues to meet criteria for inpatient psychiatric admission for symptom stabilization and safety. Patient will be maintained on current psychotropic medication regimen. Monitor for medication compliance and for any psychotropic medication side effects. Will continue to monitor ongoing response to treatment. Encouraged participation in milieu.
[2022-06-08] MEDS: BENZOCAINE/MENTHOL LOZENG 1 EACH LOZENGE MUCOUS MEM PRN ×3 (01:41→20:58)
[2022-06-08] MEDS: INSULIN ASPART (NovoLOG) 100 UNIT/ML VIAL SQ SCH ×3 (09:32→16:01)
[2022-06-08] MEDS: OXcarbazepine 300 MG TAB PO SCH ×2 (09:32→20:57)
[2022-06-08] MEDS: ATORVASTATIN 20 MG TAB PO SCH (09:33)
[2022-06-08] MEDS: allopurinoL 100 MG TAB PO SCH ×2 (09:33→20:57)
[2022-06-08] MEDS: ARIPiprazole 10 MG TAB PO SCH (09:33)
[2022-06-08] MEDS: LORATADINE 10 MG TAB PO PRN (09:35)
[2022-06-08] MEDS: FLUTICASONE 50MCG/SPRAY NASAL 16GM EA NOSTRIL PRN (11:13)
[2022-06-08] MEDS: traZODone HCL 50 MG TAB PO SCH ×2 (20:57→21:04)
--- NOTE | 2022-06-08 22:03 | P.PN ---
Progress Note - Text Progress Note Date: 06/08/22 Interval history: Patient was seen at snack time eating his ice cream and was directable and agreeable to speak with director underwriter sales. He appears to have an irritable edge and claims he has been too tired and "drugged" today, reports he slept most of the day due to his medications. Objectively, he appears alert and does not appear oversedated. He did not attend groups today, and when asked why he becomes increasingly irritated and claims he doesn't go to group because he doesn't get along with the operations research group manager because she makes "false accusations" about him. He appears to exhibit paranoid ideations, and appears to isolate. Nurse report from earlier today states he was religiously preoccupied. At this time patient denies any suicidal or homicidal ideation, intent or plan. Denies any auditory or visual hallucinations. Mental status exam: General Appearance: Patient appears to be stated age, obese, is alert, directable. Behavior: No agitated behavior. Withdrawn Speech: Patient's speech is fluent and non-pressured. Mood/Affect: Mood is irritable, affect is congruent and constricted. Suicidality/Homicidality: Patient denies having any suicidal or homicidal ideation intent or plan. Perceptions: Patient denies any auditory or visual hallucinations, but there is concern he may be attending to internal stimuli. Though process: Linear Thought content: He appears to exhibit paranoid ideations and religiously preoccupied. Memory and concentration: AOX3, grossly intact for the purposes of this session Judgment and insight: improving mildly Assessment/Plan: Continue with current diagnosis. Patient continues to meet criteria for inpatient psychiatric admission for symptom stabilization and safety. Decrease Trazodone from 150 mg QHS to 100 mg QHS to his report of feeling "drugged". Monitor for medication compliance and for any psychotropic medication side eff ects. Will continue to monitor ongoing response to treatment. Encouraged participation in milieu.
[2022-06-09] MEDS: BENZOCAINE/MENTHOL LOZENG 1 EACH LOZENGE MUCOUS MEM PRN ×3 (07:08→20:40)
[2022-06-09] MEDS: allopurinoL 100 MG TAB PO SCH ×2 (08:00→20:39)
[2022-06-09] MEDS: ATORVASTATIN 20 MG TAB PO SCH (08:00)
[2022-06-09] MEDS: ARIPiprazole 10 MG TAB PO SCH (08:00)
[2022-06-09] MEDS: OXcarbazepine 300 MG TAB PO SCH ×2 (08:01→20:40)
[2022-06-09] MEDS: INSULIN ASPART (NovoLOG) 100 UNIT/ML VIAL SQ SCH ×2 (08:49→12:49)
[2022-06-09] MEDS ORDERED: ARIPiprazole IM 400 MG VIAL (NO COST) PHARMACY STOCK IM ONE (10:46)
--- NOTE | 2022-06-09 11:19 | P.PN ---
Progress Note - Text Progress Note Date: 06/09/22 Interval History: Patient was seen sitting in a group today and was agreeable to speak to technical document writer outside today. Patient appears to be calmer and his affect and demeanor with technical document writer. He was also less hostile today and more directable during conversation. He claimed that he "wants to beat up my sister" that petitioned him to be here in the hospital. He states that he "lied about me". He continues to have fairly poor insight and judgment at this time. He claims that he is tolerating the marriage medications fairly well. He appears to be less delusional today however continues to be argumentative about his medications and claims that he does not want the long-acting injection. He states that he is sleeping fairly at nighttime. Claims that he is going to some groups and trying to participate. He is showing improvement in less delusional at this time. At this time he is denying any auditory or visual hallucinations. He is denying any suicidal ideations intent or plan. Mental Status Exam: General Appearance: Patient appears to be overweight, stated age is alert, more directable today. Patient appears to have marginal hygiene and grooming. Behavior: Patient is seated without any agitated behavior. Her cooperative. Less argumentative. Speech: Patient's speech is fluent Mood/Affect: I'm that his mood is "fine" and affect is constricted. Suicidality/Homicidality: Claims that he wants to "beat up my sister" that petitioned him, no suicidal thoughts. Perceptions: Denies any hallucinations Though content/process: Demanding, mildly argumentative today. Not endorsing any delusions. Memory and concentration: Alert and oriented 3. Improving concentration. Judgment and insight: poor, improving moderately IMPRESSIONS: Bipolar disorder, current episode joya with psychotic features Cannabis use disorder Plan: -Patient continues to meet criteria for inpatient psychiatric admission for symptom stabilization and safety. Patient has not signed adult voluntary form and medication consent and was placed in patient's chart. -Medications: Trileptal 300 mg twice a day for mood stabilization, Trazodone 150 mg daily at bedtime for sleep. increase abilify 15 mg po daily for psychosis/mood stabilization on thursday. if patient refuses PO then Haldol IM as back up. ordered Abilify Maintenna 400 mg IM today to ensure compliance. -When necessary Ativan and Haldol for agitation/aggression. -NRT - not needed as patient does not smoke -SW on board for discharge planning. Encouraged the patient to participate in milieu. patient is on an active MANUELA order through [facility] which started 04/01/22. likely discharge in 2-3 days after patient is transitioned onto [facility]
[2022-06-09] MEDS: FLUTICASONE 50MCG/SPRAY NASAL 16GM EA NOSTRIL PRN (15:07)
--- NOTE | 2022-06-09 15:24 | P.PN ---
Progress Note - Text Progress Note Date: 06/09/22 - Chief Complaint Psychosis Hospital course: This is a 47-year-old patient, follows with Dr. Patel. Patient was transferred here from an outside hospital. Up in the [facility] region. Patient was petitioned. Petition had said that patient thought he was [place] and his father is Armani YeboahConversio Healthjanell gibbs. He says he works for [employer]. His difficult to get the history from the patient and he keeps talking about connections to sai, and an politicians. He is rather concerned about his CPAP that is left in his truck near the previous hospital. His appetite is fair. Has a bowel movement every day. Denies any pain. Has trouble sleeping and he thinks his presentation to: Not able to use a CPAP. Denies any fever and chills. It seems patient has stopped taking his medications about a month ago. He reasons that aren't entirely unclear and he thinks that ulterior motives in him getting the medications. 05/30/2022: [place] about [place]. Started antipsychotics. Refusing to take his diabetic medications. Accu-Chek this morning 106. Also refused some of the medications. Patient still having flight of ideas. Psychotic symptoms persist. Oral intake fair. 05/31/2022: Patient instructed been refusing his medications. Taking the occasional medicine. Received IM Haldol last night. Not getting Accu-Cheks checked. Oral intake well. Had a BM. Ambulatory. Patient will need a court- ordered to give him his medications. 06/01/2022: Patient has been wii'll take the occasional medication.. Oral intake fair. Still refusing medications./sore throat. Requesting throat lozenges. I explained to the patient importance of getting his Accu-Cheks done. Has agreed for the same. 06/02/2022: Ambulating. Eating well. Even though I discussed with the patient yesterday patient has refused to take his Accu-Cheks checked. Today wants vitamin B12 supplement, is agreed to get his level checked tomorrow. Wants vitamin D because he has not exposed to sunshine. I told him I don't see any reason to prescribe magnesium 06/03/2022: Patient earlier today received sedative IM medications. A bit lethargic. He would answer questions. He states-he should not have called the medication is supposed to be for his roommate. He declined to get his B12 level checked this morning. Eating well. Still refusing most medications. 06/05/2022: Patient did take some of his psychiatry medications. His blood pressure has been running borderline. Refuses taking any medication currently. His Accu-Chek remains controlled. Doubt he has diabetes. We'll discontinue Accu-Chek. Patient up and about in the hallway. Eating well. Still delusional. 06/06/2022: Sitting and playing cards. Has been taking his medications. Some trouble sleeping last night. Psychiatrist nodes noted. 06/09/2022: Up and about. Eating well. Slept well last night. Less delusional. Discussed the patient is agreed to get his glycoside hemoglobin checked. Active Medications Acetaminophen (Acetaminophen Tab 325 Mg Tab) 650 mg PO Q4HR PRN PRN Reason: Pain/Discomfort Al Hydroxide/Mg Hydroxide (Mag Hydrox/Al Hydrox/Simeth 30 Ml Cup) 30 ml PO Q4HR PRN PRN Reason: GI Upset Allopurinol (Allopurinol 100 Mg Tab) 100 mg PO BID [facility] Last Admin: 06/09/22 08:00 Dose: 100 mg Aripiprazole (Aripiprazole 15 Mg Tab) 15 mg PO DAILY [facility] Atorvastatin Calcium (Atorvastatin 20 Mg Tab) 20 mg PO DAILY [facility] Last Admin: 06/09/22 08:00 Dose: 20 mg Benzocaine/Menthol (Benzocaine/Menthol Lozeng 1 Each Lozenge) 1 each MUCOUS MEM Q4HR PRN PRN Reason: Cough Last Admin: 06/09/22 15:06 Dose: 1 each Chlorpromazine HCl (Chlorpromazine 25 Mg Tab) 75 mg PO Q6HR PRN PRN Reason: Agitation Chlorpromazine HCl (Chlorpromazine 25 Mg/Ml 2 Ml Amp) 75 mg IM Q6HR PRN PRN Reason: Agitation Last Admin: 06/03/22 08:45 Dose: 75 mg Dextrose/Water (Dextrose 50% Syringe 50 Ml) 25 ml IVP PER PROTOCOL PRN; Protocol PRN Reason: Hypoglycemia Dextrose/Water (Dextrose 50% Syringe 50 Ml) 50 ml IVP PER PROTOCOL PRN; Protocol PRN Reason: Hypoglycemia Diphenhydramine HCl (Diphenhydramine 50 Mg/Ml 1 Ml Vial) 50 mg IM Q6HR PRN PRN Reason: Agitation or Acute Psychosis Last Admin: 06/03/22 08:45 Dose: 50 mg Diphenhydramine HCl (Diphenhydramine 25 Mg Cap) 50 mg PO Q6HR PRN PRN Reason: Agitation or Acute Psychosis Last Admin: 05/31/22 04:36 Dose: 50 mg Fluticasone Propionate (Fluticasone 50mcg/[place] Nasal 16gm) 2 spray EA NOSTRIL DAILY PRN PRN Reason: Allergy Symptoms Last Admin: 06/09/22 15:07 Dose: 2 spray Haloperidol Lactate (Haloperidol Lactate 5 Mg/Ml 1 Ml Vial) 5 mg IM DAILY PRN PRN Reason: refusing PO abilify Insulin Aspart (Insulin Aspart (Novolog) 100 Unit/Ml Vial) 0 unit SQ AC-TID [facility]; Protocol Last Admin: 06/09/22 12:49 Dose: Not Given Loratadine (Loratadine 10 Mg Tab) 10 mg PO DAILY PRN PRN Reason: Congestion Last Admin: 06/08/22 09:35 Dose: 10 mg Lorazepam (Lorazepam 1 Mg/0.5 Ml Vial) 2 mg IM Q6HR PRN PRN Reason: Agitation or Acute Anxiety Last Admin: 06/03/22 08:44 Dose: 2 mg Lorazepam (Lorazepam 1 Mg Tab) 2 mg PO Q6HR PRN PRN Reason: Agitation or Acute Anxiety Last Admin: 06/03/22 07:58 Dose: 2 mg Magnesium Hydroxide (Magnesium Hydroxide 2,400 Mg/10 Ml Cup) 2,400 mg PO DAILY PRN PRN Reason: Constipation Oxcarbazepine (Oxcarbazepine 300 Mg Tab) 300 mg PO BID [facility] Last Admin: 06/09/22 08:01 Dose: 300 mg Trazodone HCl (Trazodone Hcl 50 Mg Tab) 100 mg PO HS [facility] Last Admin: 06/08/22 21:04 Dose: Not Given Past medical history to include: Diabetes, hypertension, gout or kidney stones, bilateral carpal tunnel syndrome, sleep apnea, bipolar Social history: Apparently is homeless. At some point he was staying with his mother. Denies history of any smoking alcohol or use of any recreational drugs Physical examination: VITAL SIGNS: 98.7, 91, 16, 120/68, 96% room air GENERAL: Sitting in a chair, awake, comfortable EYES: Pupils equal. Conjunctiva normal. HEENT: External appearance of nose and ears normal, oral cavity grossly normal. NECK: JVD not raised; masses not palpable. HEART: First and second heart sounds are normal; no edema. LUNGS: Respiratory rate normal; clear to auscultation. ABDOMEN: Soft, nontender, liver spleen not palpable, no masses palpable. PSYCH: Does answer questions but still psychotic. Assessment and plan: -Bipolar disorder with current episode of joya with psychotic features.: Less delusional On antipsychotic per psychiatry. Taking his medications. -Morbid obesity BMI 49.4 Weight loss measures -Chronic gout Allopurinol -Hyperlipidemia Lipitor -Essential hypertension, borderline DC Zestril. cardiac diet. -Diabetes mellitus type 2, : Ruled out Stop Accu-Cheks Patient is agreed to get in glycoside hemoglobin checked. Should follow up with his PCP Thank you Dr. Velazco
[2022-06-09] MEDS: traZODone HCL 50 MG TAB PO SCH (20:39)
[2022-06-10 06:52] VITALS: BP 142/74; PULSE 101; TEMP 97.5
[2022-06-10] MEDS: BENZOCAINE/MENTHOL LOZENG 1 EACH LOZENGE MUCOUS MEM PRN ×2 (08:49→12:23)
[2022-06-10] MEDS: ATORVASTATIN 20 MG TAB PO SCH (08:49)
[2022-06-10] MEDS: OXcarbazepine 300 MG TAB PO SCH ×2 (08:49→20:43)
[2022-06-10] MEDS: ARIPiprazole 15 MG TAB PO SCH ×2 (08:50→12:23)
[2022-06-10] MEDS: FLUTICASONE 50MCG/SPRAY NASAL 16GM EA NOSTRIL PRN ×2 (08:50→12:23)
[2022-06-10] MEDS: allopurinoL 100 MG TAB PO SCH ×2 (08:50→20:43)
--- NOTE | 2022-06-10 10:21 | P.PN ---
Progress Note - Text Progress Note Date: 06/10/22 Interval History: Patient was seen sitting in a group today and was agreeable to speak to resume writer outside today. Patient appears to be calmer and his affect and appears to be more directable and cooperative with resume writer during conversation. He states that he is feeling a bit tired this morning and states that he is sleeping "about 8 hours". Patient requested to have his trazodone decreased for tonight. He states that he is using his CPAP as much as he can at nighttime for rest. He states that he is not feeling depressed or anxious at this time. His insight and judgment continued to be somewhat limited however he is not endorsing paranoia or delusions today. Patient received long-acting injection yesterday and is denying any problems with her today. He states that he is sleeping fairly at nighttime. Claims that he is going to some groups and trying to participate. He is showing improvement in less delusional at this time. At this time he is denying any auditory or visual hallucinations. He is denying any suicidal ideations intent or plan. Mental Status Exam: General Appearance: Patient appears to be overweight, stated age is alert, more directable today. Patient appears to have marginal hygiene and grooming. Behavior: Patient is seated without any agitated behavior. More cooperative. Less argumentative. Speech: Patient's speech is fluent Mood/Affect: I'm that his mood is "tired" and affect is constricted. Suicidality/Homicidality: Claims that he wants to "beat up my sister" that petitioned him, no suicidal thoughts. Perceptions: Denies any hallucinations Though content/process: less argumentative today. Not endorsing any delusions. Memory and concentration: Alert and oriented 3. Improving concentration. Judgment and insight: poor, improving mildly IMPRESSIONS: Bipolar disorder, current episode joya with psychotic features Cannabis use disorder Plan: -Patient continues to meet criteria for inpatient psychiatric admission for symptom stabilization and safety. Patient has not signed adult voluntary form and medication consent and was placed in patient's chart. -Medications: Trileptal 300 mg twice a day for mood stabilization, decreased Trazodone 50 mg daily at bedtime for sleep. abilify 15 mg po daily for psychosis/mood stabilization on thursday. if patient refuses PO then Haldol IM as back up. Patient received Abilify Maintenna 400 mg IM on 06/09 and will be due for next 400 mg IM dose on 07/07. -When necessary Ativan and Haldol for agitation/aggression. -NRT - not needed as patient does not smoke -SW on board for discharge planning. Encouraged the patient to participate in milieu. patient is on an active MANUELA order through [facility] which started 04/01/22. likely discharged tomorrow
[2022-06-10 10:49] VITALS: BMI 50.2
--- NOTE | 2022-06-10 15:03 | P.PN ---
Progress Note - Text Progress Note Date: 06/10/22 - Chief Complaint Psychosis Hospital course: This is a 47-year-old patient, follows with Dr. Patel. Patient was transferred here from an outside hospital. Up in the [facility] region. Patient was petitioned. Petition had said that patient thought he was [place] and his father is Armani YeboahRentJuicejanell gibbs. He says he works for [employer]. His difficult to get the history from the patient and he keeps talking about connections to sai, and an politicians. He is rather concerned about his CPAP that is left in his truck near the previous hospital. His appetite is fair. Has a bowel movement every day. Denies any pain. Has trouble sleeping and he thinks his presentation to: Not able to use a CPAP. Denies any fever and chills. It seems patient has stopped taking his medications about a month ago. He reasons that aren't entirely unclear and he thinks that ulterior motives in him getting the medications. 05/30/2022: [place]. Started antipsychotics. Refusing to take his diabetic medications. Accu-Chek this morning 106. Also refused some of the medications. Patient still having flight of ideas. Psychotic symptoms persist. Oral intake fair. 05/31/2022: Patient instructed been refusing his medications. Taking the occasional medicine. Received IM Haldol last night. Not getting Accu-Cheks checked. Oral intake well. Had a BM. Ambulatory. Patient will need a court- ordered to give him his medications. 06/01/2022: Patient has been wii'll take the occasional medication.. Oral intake fair. Still refusing medications./sore throat. Requesting throat lozenges. I explained to the patient importance of getting his Accu-Cheks done. Has agreed for the same. 06/02/2022: Ambulating. Eating well. Even though I discussed with the patient yesterday patient has refused to take his Accu-Cheks checked. Today wants vitamin B12 supplement, is agreed to get his level checked tomorrow. Wants vitamin D because he has not exposed to sunshine. I told him I don't see any reason to prescribe magnesium 06/03/2022: Patient earlier today received sedative IM medications. A bit lethargic. He would answer questions. He states-he should not have called the medication is supposed to be for his roommate. He declined to get his B12 level checked this morning. Eating well. Still refusing most medications. 06/05/2022: Patient did take some of his psychiatry medications. His blood pressure has been running borderline. Refuses taking any medication currently. His Accu-Chek remains controlled. Doubt he has diabetes. We'll discontinue Accu-Chek. Patient up and about in the hallway. Eating well. Still delusional. 06/06/2022: Sitting and playing cards. Has been taking his medications. Some trouble sleeping last night. Psychiatrist nodes noted. 06/09/2022: Up and about. Eating well. Slept well last night. Less delusional. Discussed the patient is agreed to get his glycoside hemoglobin checked. 06/10/2022: Patient doing well. Less delusional. Spoke to Dr. Velazco. Patient does have a court-ordered from [employer] that also applies here. Patient glycoside hemoglobin came back at 5.6. No diabetes. Informed patient. Up and about. Doing better. Active Medications Acetaminophen (Acetaminophen Tab 325 Mg Tab) 650 mg PO Q4HR PRN PRN Reason: Pain/Discomfort Al Hydroxide/Mg Hydroxide (Mag Hydrox/Al Hydrox/Simeth 30 Ml Cup) 30 ml PO Q4HR PRN PRN Reason: GI Upset Allopurinol (Allopurinol 100 Mg Tab) 100 mg PO BID [facility] Last Admin: 06/10/22 08:50 Dose: 100 mg Aripiprazole (Aripiprazole 15 Mg Tab) 15 mg PO DAILY [facility] Last Admin: 06/10/22 12:23 Dose: 15 mg Atorvastatin Calcium (Atorvastatin 20 Mg Tab) 20 mg PO DAILY [facility] Last Admin: 06/10/22 08:49 Dose: 20 mg Benzocaine/Menthol (Benzocaine/Menthol Lozeng 1 Each Lozenge) 1 each MUCOUS MEM Q4HR PRN PRN Reason: Cough Last Admin: 06/10/22 12:23 Dose: 1 each Chlorpromazine HCl (Chlorpromazine 25 Mg Tab) 75 mg PO Q6HR PRN PRN Reason: Agitation Chlorpromazine HCl (Chlorpromazine 25 Mg/Ml 2 Ml Amp) 75 mg IM Q6HR PRN PRN Reason: Agitation Last Admin: 06/03/22 08:45 Dose: 75 mg Dextrose/Water (Dextrose 50% Syringe 50 Ml) 25 ml IVP PER PROTOCOL PRN; Protocol PRN Reason: Hypoglycemia Dextrose/Water (Dextrose 50% Syringe 50 Ml) 50 ml IVP PER PROTOCOL PRN; Protocol PRN Reason: Hypoglycemia Diphenhydramine HCl (Diphenhydramine 50 Mg/Ml 1 Ml Vial) 50 mg IM Q6HR PRN PRN Reason: Agitation or Acute Psychosis Last Admin: 06/03/22 08:45 Dose: 50 mg Diphenhydramine HCl (Diphenhydramine 25 Mg Cap) 50 mg PO Q6HR PRN PRN Reason: Agitation or Acute Psychosis Last Admin: 05/31/22 04:36 Dose: 50 mg Fluticasone Propionate (Fluticasone 50mcg/[place] Nasal 16gm) 2 spray EA NOSTRIL DAILY PRN PRN Reason: Allergy Symptoms Last Admin: 06/10/22 12:23 Dose: 2 spray Haloperidol Lactate (Haloperidol Lactate 5 Mg/Ml 1 Ml Vial) 5 mg IM DAILY PRN PRN Reason: refusing PO abilify Loratadine (Loratadine 10 Mg Tab) 10 mg PO DAILY PRN PRN Reason: Congestion Last Admin: 06/08/22 09:35 Dose: 10 mg Lorazepam (Lorazepam 1 Mg/0.5 Ml Vial) 2 mg IM Q6HR PRN PRN Reason: Agitation or Acute Anxiety Last Admin: 06/03/22 08:44 Dose: 2 mg Lorazepam (Lorazepam 1 Mg Tab) 2 mg PO Q6HR PRN PRN Reason: Agitation or Acute Anxiety Last Admin: 06/03/22 07:58 Dose: 2 mg Magnesium Hydroxide (Magnesium Hydroxide 2,400 Mg/10 Ml Cup) 2,400 mg PO DAILY PRN PRN Reason: Constipation Oxcarbazepine (Oxcarbazepine 300 Mg Tab) 300 mg PO BID [facility] Last Admin: 06/10/22 08:49 Dose: 300 mg Trazodone HCl (Trazodone Hcl 50 Mg Tab) 50 mg PO HS [facility] Past medical history to include: Diabetes, hypertension, gout or kidney stones, bilateral carpal tunnel syndrome, sleep apnea, bipolar Social history: Apparently is homeless. At some point he was staying with his mother. Denies history of any smoking alcohol or use of any recreational drugs Physical examination: VITAL SIGNS: 97.5, 101, 16, 142.74, 98% room air GENERAL: Sitting in a chair, comfortable EYES: Pupils equal. Conjunctiva normal. HEENT: External appearance of nose and ears normal, oral cavity grossly normal. NECK: JVD not raised; masses not palpable. HEART: First and second heart sounds are normal; no edema. LUNGS: Respiratory rate normal; clear to auscultation. ABDOMEN: Soft, nontender, liver spleen not palpable, no masses palpable. PSYCH: Answering questions appropriately. Less delusional. INVESTIGATIONS, reviewed in the clinical context: Hemoglobin A1c: 5.6 Assessment and plan: -Bipolar disorder with current episode of joya with psychotic features.: Improving On antipsychotic per psychiatry. Taking his medications. -Morbid obesity BMI 49.4 Weight loss measures -Chronic gout Allopurinol -Hyperlipidemia Lipitor -Essential hypertension, borderline DC Zestril. cardiac diet. Manage with diet -Diabetes mellitus type 2, : Ruled out Stop Accu-Cheks. HbA1c 5.[address] Velazco. Follow-up with PCP upon discharge. Informed patient does not have diabetes. Blood pressure is borderline. Low- salt/cardiac diet. Thank you Dr. Velazco
[2022-06-10] MEDS ORDERED: traZODone HCL 50 MG TAB PO SCH (21:00)
[2022-06-11] MEDS: ATORVASTATIN 20 MG TAB PO SCH (08:13)
[2022-06-11] MEDS: allopurinoL 100 MG TAB PO SCH (08:13)
[2022-06-11] MEDS: ARIPiprazole 15 MG TAB PO SCH (08:13)
[2022-06-11] MEDS: OXcarbazepine 300 MG TAB PO SCH (08:14)
--- NOTE | 2022-06-11 11:27 | P.DS ---
Providers Date of admission: 05/28/22 17:15 Expected date of discharge: 06/11/22 Attending physician: Thuan Velazco MD Consults: 05/28/22 17:59 Consult Physician Routine Consulting Provider: Tong Martínez Consult Reason/Comments: Medical H&P Do you want consulting provider notified?: Yes Primary care physician: Stated None - Discharge Diagnosis(es) (1) Bipolar disorder, current episode manic severe with psychotic features Current Visit: Yes Status: Acute Priority: High (2) Cannabis use disorder Current Visit: Yes Status: Acute Priority: Medium Hospital Course: Admission HPI: Admission note was completed by investigative writer "Patient is a 47-year-old male with history of bipolar disorder, currently homeless out of [facility]. Currently on SSD. Patient presented to the hospital as a transfer from [facility]. Patient was petitioned by a emergency media services director stating that patient was delusional and tangential and having loose associat ions. Petition also stated that "he believes he is king Lamont and his father Armani Yeboah is God". Patient also apparently referred to a family is working for the [employer] and his phone "going not today" as described in the petition. Patient was admitted involuntarily yesterday and seen investigative writer. Patient rambles at times, has loose associations, illogical. He was very talkative today. She was fairly focused on the government and claims that "I'm here because Selvin Issa is not fit for office". He states that the "[facility] government" is after him". He also states that other people are after his inheritance. He was also fairly grandiose and spoke about his education level and claims that he graduated from [employer] in July 2001 and almost got his doctorate. She claims that his sleep has been poor appetite as been fair. He has very poor insight and judgment claims that he is not willing to take medications. Patient denies any suicidal or homicidal ideations intent or plan. At this time patient denies any visual hallucinations. He did state that he hears voices of his father and also his uncle. Patient admits to using marijuana, denies using any cigarettes." Hospital course: Upon admission to the unit patient was admitted involuntarily on a petition and certificate and a second certificate was completed and faxed with the courts. Patient ended up already being on an active treatment order through [facility] and the order was faxed in to the ammunition officer. Patient was initially bizarre, agitated, impulsive and difficult to redirect however with treatment got along well with other patients on the unit and followed unit protocol. Patient was initially non compliant with the medications until the treatment order was faxed in and patient began taking the medications and denied any side effects throughout hospital course. Patient was started on Trileptal 300 mg twice a day for mood stabilization, trazodone 50 mg daily at bedtime for sleep, Abilify 15 mg by mouth daily for mood stabilization/psychosis. Patient was transitioned onto Abilify Maintenna and given 400 mg IM dose on 06/19 and will be due for his next 400 mg IM dose on 07/07. Patient spoke of his stressors and engaged in therapy both group and individual. Patient was also seen by medical team for history and physical exam. Throughout the course of the hospitalization patient gradually improved with regards to mood, anxiety, psychosis, sleep and returned back to their baseline level of functioning. On the day of discharge patient denied any suicidal or homicidal ideations intent or plan denied any auditory or visual hallucinations. Patient endorsed wanting to live for his health and family. The patient denied any access to guns or weapons. Patient denied any paranoia and did not endorse any delusions. Patient does have a significant history of substance abuse and was counseled on abstaining from all substances including alcohol and marijuana. Patient was also counseled on the medications and need for regular compliance and was encouraged to follow-up with their outpatient appointment for mental health and also for primary care. did manage to send out a duty to warn letter/contact to patients sister. Mental status exam: General Appearance: Patient appears to be obese,stated age is alert, directable, and attempts to be cooperative. Patient is in no acute distress and has improved hygiene and grooming Behavior: Patient is calmly seated without any agitated behavior. Speech: Patient's speech is fluent and nonpressured. Mood/Affect: Patient reports their mood is "ok", affect is congruent and constricted Suicidality/Homicidality: Patient denies having any suicidal or homicidal ideation intent or plan. Perceptions: Patient denies any auditory or visual hallucinations. Though content/process: There is no evidence of any delusional thought content and thought process is linear and goal-directed. Memory and concentration: AOX3, grossly intact for the purposes of this session. Can spell "WORLD" backwards correctly. Judgment and insight: chronically poor, however has improved with guarded prognosis Impression: Bipolar disorder, current episode joya with psychotic features Cannabis use disorder Plan: -Continue with discharge today as patient has improved and stabilized psychiatrically and is not currently an imminent threat to himself and/or others. Patient will remain at chronically elevated risk for harm to self and/or others due to his impulsivity and chronically poor insight and judgment. -Continue medications: Trazodone 50 mg daily at bedtime for insomnia/mood, Trileptal 300 mg twice a day for mood stabilization, Abilify by mouth 50 mg daily for psychosis/mood stabilization to be continued on for 12 more days then discontinue. Patient received Abilify Maintenna 400 mg IM on 06/09 and will be due for his next 400 mg IM dose on 07/07. -Patient was counseled on the need for medication compliance and appropriate follow-up at mental health and also primary care for medical issues. Patient verbalized understanding and agreed. -Social work sent out duty to warn letter to chrissy sister. Will help coordinate pts discharge today to [facility] via taxi. Social work also to arrange for patients follow up appointments with [facility] for psychiatric care along with follow up with primary care provider. -Patient counseled on abstaining from recreational drugs and marijuana and alcohol. Was informed/educated on the adverse effects on their physical and mental health. Patient verbally agreed and understood. -Patient was instructed to return to the hospital or seek immediate medical care if their psychiatric or medical symptoms do worsen or reoccur. Allergies Allergy/AdvReac Type Severity Reaction Status Date / Time colchicine Allergy Swelling Verified 06/08/22 10:41 latex Allergy Rash/Hives Verified 06/08/22 10:41 paliperidone [From Invega] AdvReac Nausea & Verified 06/08/22 10:41 Vomiting Laboratory Results POC Glucose (mg/dL) 147 mg/dL (70-110) H 06/05/22 19:55 POC Glu [place] ID [place] 06/05/22 19:[address] Glu mg/dL 115 06/09/22 15:44 Hemoglobin A1c 5.6 % (0.0-6.0) 06/09/22 15:44 Vital Signs Temp 97.5 F L 06/10/22 06:15 Pulse 101 H 06/10/22 06:15 Resp 16 06/10/22 06:15 BP 142/74 06/10/22 06:15 Pulse Ox 98 06/10/22 06:15 FiO2 21 06/11/22 01:39 Patient Condition at Discharge: Stable Plan - Discharge Summary Discharge Rx Participant: No New Discharge Prescriptions: New ARIPiprazole [Abilify] 15 mg PO DAILY #12 tab ARIPiprazole IM [Abilify Maintena] 400 mg IM QMONTHLY #1 each Benzocaine/Menthol Lozeng [Cepacol lozenge] 1 each MUCOUS MEM Q4HR PRN lozenge PRN Reason: Cough Loratadine [Claritin] 10 mg PO DAILY PRN 30 Days tab PRN Reason: Congestion traZODone HCL [Desyrel] 50 mg PO HS 30 Days tab OXcarbazepine [Trileptal] 300 mg PO BID 30 Days tab Continue allopurinoL [Zyloprim] 100 mg PO BID lisinopriL [Zestril] 20 mg PO DAILY Atorvastatin [Lipitor] 20 mg PO DAILY Fluticasone Nasal [place] [Flonase Nasal [place]] 2 spr EA NOSTRIL BID #1 ml Discontinued glipiZIDE [Glucotrol XL] 10 mg PO DAILY Loratadine 10 mg PO DAILY Discharge Medication List allopurinoL [Zyloprim] 100 mg PO BID 04/29/18 [History] Atorvastatin [Lipitor] 20 mg PO DAILY 03/22/22 [History] lisinopriL [Zestril] 20 mg PO DAILY 03/22/22 [History] ARIPiprazole IM [Abilify Maintena] 400 mg IM QMONTHLY #1 each 06/11/22 [Rx] ARIPiprazole [Abilify] 15 mg PO DAILY #12 tab 06/11/22 [Rx] Benzocaine/Menthol Lozeng [Cepacol lozenge] 1 each MUCOUS MEM Q4HR PRN lozenge 06/11/22 [Rx] Fluticasone Nasal [place] [Flonase Nasal [place]] 2 spr EA NOSTRIL BID #1 ml 06/11/22 [Rx] Loratadine [Claritin] 10 mg PO DAILY PRN 30 Days tab 06/11/22 [Rx] OXcarbazepine [Trileptal] 300 mg PO BID 30 Days tab 06/11/22 [Rx] traZODone HCL [Desyrel] 50 mg PO HS 30 Days tab 06/11/22 [Rx] Follow up Appointment(s)/Referral(s): [facility] [Outside] - 06/12/22 2:00 pm (with Destinee) [facility] [NON-STAFF] - 1 Week Activity/Diet/Wound Care/Special Instructions: Avoid the use of street drugs and alcohol. Take all prescriptions as prescribed. When you are in need of refills on your medications, please contact your medical provider and/or outpatient psychiatrist to have this done. Please go to scheduled outpatient appointment for aftercare treatment. If symptoms return or become worse, call the crisis line at and/or go to the nearest emergency room for evaluation. Discharge Disposition: OTHER INSTITUTION NOT DEFINED
--- NOTE | 2022-06-11 12:54 | P.PN ---
Progress Note - Text Progress Note Date: 06/11/22 - Chief Complaint Psychosis Hospital course: This is a 47-year-old patient, follows with Dr. Patel. Patient was transferred here from an outside hospital. Up in the [facility]. Patient was petitioned. Petition had said that patient thought he was King Lamont and his father is Armani YeboahGood Works Nowjanell gibbs. He says he works for [employer] His difficult to get the history from the patient and he keeps talking about connections to sai, and an politicians. He is rather concerned about his CPAP that is left in his truck near the previous hospital. His appetite is fair. Has a bowel movement every day. Denies any pain. Has trouble sleeping and he thinks his presentation to: Not able to use a CPAP. Denies any fever and chills. It seems patient has stopped taking his medications about a month ago. He reasons that aren't entirely unclear and he thinks that ulterior motives in him getting the medications. 05/30/2022: Patient been up and about in the [place]. Started antipsychotics. Refusing to take his diabetic medications. Accu-Chek this morning 106. Also refused some of the medications. Patient still having flight of ideas. Psychotic symptoms persist. Oral intake fair. 05/31/2022: Patient instructed been refusing his medications. Taking the occasional medicine. Received IM Haldol last night. Not getting Accu-Cheks checked. Oral intake well. Had a BM. Ambulatory. Patient will need a court- ordered to give him his medications. 06/01/2022: Patient has been wii'll take the occasional medication.. Oral intake fair. Still refusing medications./sore throat. Requesting throat lozenges. I explained to the patient importance of getting his Accu-Cheks done. Has agreed for the same. 06/02/2022: Ambulating. Eating well. Even though I discussed with the patient yesterday patient has refused to take his Accu-Cheks checked. Today wants vitamin B12 supplement, is agreed to get his level checked tomorrow. Wants vitamin D because he has not exposed to sunshine. I told him I don't see any reason to prescribe magnesium 06/03/2022: Patient earlier today received sedative IM medications. A bit lethargic. He would answer questions. He states-he should not have called the medication is supposed to be for his roommate. He declined to get his B12 level checked this morning. Eating well. Still refusing most medications. 06/05/2022: Patient did take some of his psychiatry medications. His blood pressure has been running borderline. Refuses taking any medication currently. His Accu-Chek remains controlled. Doubt he has diabetes. We'll discontinue Accu-Chek. Patient up and about in the hallway. Eating well. Still delusional. 06/06/2022: Sitting and playing cards. Has been taking his medications. Some trouble sleeping last night. Psychiatrist nodes noted. 06/09/2022: Up and about. Eating well. Slept well last night. Less delusional. Discussed the patient is agreed to get his glycoside hemoglobin checked. 06/10/2022: Patient doing well. Less delusional. Spoke to Dr. Velazco. Patient does have a court-ordered from [place] that also applies here. Patient glycoside hemoglobin came back at 5.6. No diabetes. Informed patient. Up and about. Doing better. 06/21/2022: Resting in bed. Comfortable. Told the patient to follow-up with his family doctor. Questions answered. Advised to lose weight. Active Medications Acetaminophen (Acetaminophen Tab 325 Mg Tab) 650 mg PO Q4HR PRN PRN Reason: Pain/Discomfort Al Hydroxide/Mg Hydroxide (Mag Hydrox/Al Hydrox/Simeth 30 Ml Cup) 30 ml PO Q4HR PRN PRN Reason: GI Upset Allopurinol (Allopurinol 100 Mg Tab) 100 mg PO BID [facility] Last Admin: 06/11/22 08:13 Dose: 100 mg Aripiprazole (Aripiprazole 15 Mg Tab) 15 mg PO DAILY [facility] Last Admin: 06/11/22 08:13 Dose: 15 mg Atorvastatin Calcium (Atorvastatin 20 Mg Tab) 20 mg PO DAILY [facility] Last Admin: 06/11/22 08:13 Dose: 20 mg Benzocaine/Menthol (Benzocaine/Menthol Lozeng 1 Each Lozenge) 1 each MUCOUS MEM Q4HR PRN PRN Reason: Cough Last Admin: 06/10/22 12:23 Dose: 1 each Chlorpromazine HCl (Chlorpromazine 25 Mg Tab) 75 mg PO Q6HR PRN PRN Reason: Agitation Chlorpromazine HCl (Chlorpromazine 25 Mg/Ml 2 Ml Amp) 75 mg IM Q6HR PRN PRN Reason: Agitation Last Admin: 06/03/22 08:45 Dose: 75 mg Dextrose/Water (Dextrose 50% Syringe 50 Ml) 25 ml IVP PER PROTOCOL PRN; Protocol PRN Reason: Hypoglycemia Dextrose/Water (Dextrose 50% Syringe 50 Ml) 50 ml IVP PER PROTOCOL PRN; Protocol PRN Reason: Hypoglycemia Diphenhydramine HCl (Diphenhydramine 50 Mg/Ml 1 Ml Vial) 50 mg IM Q6HR PRN PRN Reason: Agitation or Acute Psychosis Last Admin: 06/03/22 08:45 Dose: 50 mg Diphenhydramine HCl (Diphenhydramine 25 Mg Cap) 50 mg PO Q6HR PRN PRN Reason: Agitation or Acute Psychosis Last Admin: 05/31/22 04:36 Dose: 50 mg Fluticasone Propionate (Fluticasone 50mcg/[place] Nasal 16gm) 2 spray EA NOSTRIL DAILY PRN PRN Reason: Allergy Symptoms Last Admin: 06/10/22 12:23 Dose: 2 spray Haloperidol Lactate (Haloperidol Lactate 5 Mg/Ml 1 Ml Vial) 5 mg IM DAILY PRN PRN Reason: refusing PO abilify Loratadine (Loratadine 10 Mg Tab) 10 mg PO DAILY PRN PRN Reason: Congestion Last Admin: 06/08/22 09:35 Dose: 10 mg Lorazepam (Lorazepam 1 Mg/0.5 Ml Vial) 2 mg IM Q6HR PRN PRN Reason: Agitation or Acute Anxiety Last Admin: 06/03/22 08:44 Dose: 2 mg Lorazepam (Lorazepam 1 Mg Tab) 2 mg PO Q6HR PRN PRN Reason: Agitation or Acute Anxiety Last Admin: 06/03/22 07:58 Dose: 2 mg Magnesium Hydroxide (Magnesium Hydroxide 2,400 Mg/10 Ml Cup) 2,400 mg PO DAILY PRN PRN Reason: Constipation Oxcarbazepine (Oxcarbazepine 300 Mg Tab) 300 mg PO BID NOE Last Admin: 06/11/22 08:14 Dose: 300 mg Trazodone HCl (Trazodone Hcl 50 Mg Tab) 50 mg PO HS [facility] Last Admin: 06/10/22 20:43 Dose: 50 mg Past medical history to include: Diabetes, hypertension, gout or kidney stones, bilateral carpal tunnel syndrome, sleep apnea, bipolar Social history: Apparently is homeless. At some point he was staying with his mother. Denies history of any smoking alcohol or use of any recreational drugs Physical examination: VITAL SIGNS: Vital signs from today GENERAL: Laying in bed, comfortable EYES: Pupils equal. Conjunctiva normal. HEENT: External appearance of nose and ears normal, oral cavity grossly normal. NECK: JVD not raised; masses not palpable. HEART: First and second heart sounds are normal; no edema. LUNGS: Respiratory rate normal; clear to auscultation. ABDOMEN: Soft, nontender, liver spleen not palpable, no masses palpable. PSYCH: Answering questions appropriately. Patient using foul words about the psychiatry consultant nurse INVESTIGATIONS, reviewed in the clinical context: Hemoglobin A1c: 5.6 Assessment and plan: -Bipolar disorder with current episode of joya with psychotic features.: Improving On antipsychotic per psychiatry. Taking his medications. -Morbid obesity BMI 49.4 Weight loss measures -Chronic gout Allopurinol -Hyperlipidemia Lipitor -Essential hypertension, borderline DC Zestril. cardiac diet. Manage with diet -Diabetes mellitus type 2, : Ruled out Stop Accu-Cheks. HbA1c 5.6 Discussed with the patient. Discussed about weight loss. Should follow-up with his family doctor. Thank you Dr. Velazco
== END 2022-06-11 14:35 | disposition other institution (70) | DRG 885 ==
LOC: 3MHU 17:15
PROVIDERS: ADMIT Psychiatry & Neurology Psychiatry; ATTEND Psychiatry & Neurology Psychiatry
DX: F31.2 Bipolar disorder, current episode manic severe with psychotic features (principal); Z68.42 Body mass index [BMI] 45.0-49.9, adult; E11.649 Type 2 diabetes mellitus with hypoglycemia without coma; E66.01 Morbid (severe) obesity due to excess calories; E78.5 Hyperlipidemia, unspecified; F12.10 Cannabis abuse, uncomplicated; R45.1 Restlessness and agitation; F41.9 Anxiety disorder, unspecified; F60.0 Paranoid personality disorder; G47.30 Sleep apnea, unspecified; G56.03 Carpal tunnel syndrome, bilateral upper limbs; I10 Essential (primary) hypertension; K59.00 Constipation, unspecified; M1A.9XX0 Chronic gout, unspecified, without tophus (tophi); Z87.442 Personal history of urinary calculi; Z59.00 Homelessness unspecified; Z79.84 Long term (current) use of oral hypoglycemic drugs; Z79.899 Other long term (current) drug therapy; Z82.49 Family history of ischemic heart disease and other diseases of the circulatory system; Z83.3 Family history of diabetes mellitus; Z91.14 Patient's other noncompliance with medication regimen; Z71.3 Dietary counseling and surveillance; Z88.8 Allergy status to other drugs, medicaments and biological substances; Z91.040 Latex allergy status; Z28.21 Immunization not carried out because of patient refusal; M19.072 Primary osteoarthritis, left ankle and foot; Z71.89 Other specified counseling
CPT/HCPCS: 83036; 94660

== ENCOUNTER → 2023-09-07 | Outpatient (CLI) | payer MEDICARE, OTHER ==
[2023-09-07 10:32] LABS: Basophils # (A) 0.1 k/uL (0-0.2); Basophils % (A) 1 %; Eosinophils # (A) 0.6 k/uL (0-0.7); Eosinophils % (A) 6 %; HCT 38.7 % (39.0-53.0); HGB 13.5 gm/dL (13.0-17.5); Lymphocytes # (A) 2.3 k/uL (1.0-4.8); Lymphocytes % (A) 23 %; MCH 28.9 pg (25.0-35.0); MCHC 34.8 g/dL (31.0-37.0); Mean Platelet Volume 8.3; Monocytes # (A) 0.5 k/uL (0-1.0); Monocytes % (A) 5 %; Neutrophils # (A) 6.5 k/uL (1.3-7.7); Neutrophils % (A) 64 %; Platelet Count 222 k/uL (150-450); Poikilocytosis Slight; RBC 4.66 m/uL (4.30-5.90); RDW 15.3 % (11.5-15.5); WBC 10.1 k/uL (3.8-10.6)
[2023-09-07 10:42] LABS: INR 0.9 (<1.2); Partial Thromboplastin Time 23.7 sec (22.0-30.0); Prothrombin Time 9.8 sec (10.0-12.5)
[2023-09-07 10:57] LABS: African American GFR (CKD) 53 (>60 ml/min/1.73 sqM); Anion Gap 8 mmol/L; Blood Urea Nitrogen 12 mg/dL (9-20); Carbon Dioxide 25 mmol/L (22-30); Chloride 108 mmol/L (98-107); Non-African American GFR(CKD) 46 (>60 ml/min/1.73 sqM); Potassium 3.6 mmol/L (3.5-5.1); Sodium 141 mmol/L (137-145)
== END | disposition home or self-care (01) ==
LOC: LABWHC1 09:56
PROVIDERS: ATTEND Internal Medicine
DX: N18.31 Chronic kidney disease, stage 3a (principal)
CPT/HCPCS: 36415; 80051; 82565; 84520; 85025; 85610; 85730; 86850; 86870; 86880; 86900; 86901; 86902; 86920

== ENCOUNTER 2023-09-08 07:01 | Day surgery (SDC) | payer MEDICARE, OTHER ==
[2023-09-08] MEDS ORDERED: ALPRAZolam 0.5 MG TAB PO PRN (08:14)
[2023-09-08] MEDS: DESMOPRESSIN ACETATE 32 MCG in SODIUM CHLORIDE 0.9% 50 ML IVPB ONE (09:27)
[2023-09-08 09:36] VITALS: TEMP 97.7
[2023-09-08] MEDS: HYDROmorphone 0.5 MG/0.5 ML SYRINGE IVP PRN (10:14)
--- NOTE | 2023-09-08 10:56 | CT ---
EXAMINATION TYPE: CT biopsy renal LT DATE OF EXAM: 09/08/2023 COMPARISON: NONE HISTORY: left renal biopsy CT DLP: [id number] mGycm The procedure was explained to the patient. The risks, complications, benefits, and alternatives wer e discussed and any questions were answered. Informed consent was obtained. Patient was placed pron e on the CT table and prepped and draped in the usual sterile fashion. Utilizing CT guidance, an 18 gauge core biopsy needle access into the left renal cortex was achieved and three 18 gauge core samples were obtained. The patient was stable throughout the procedure and r emained stable upon discharge. IMPRESSION: Successful 18 gauge core biopsy of the kidney function.
[2023-09-08 11:06] VITALS: PULSE 81; RESP 16
[2023-09-08 16:28] VITALS: BP 117/67
== END 2023-09-08 14:34 | disposition home or self-care (01) ==
LOC: RADPROMAIN 07:01
PROVIDERS: ATTEND Internal Medicine Nephrology
DX: N18.31 Chronic kidney disease, stage 3a (principal)
CPT/HCPCS: 86900; 86901; 86902; 86850; 86920; 86870; 86880; 36415; 50200; 77012; J2597; J1170

== ENCOUNTER → 2024-04-26 | Outpatient (CLI) | payer MEDICARE ==
--- NOTE | 2024-04-27 00:50 | US ---
EXAMINATION TYPE: US liver DATE OF EXAM: 04/26/2024 COMPARISON: NONE CLINICAL INDICATION: Male, 49 years old with history of N18.32 CHRONIC KIDNEY DISEASE, STAGE 3B; elev ated liver enzymes TECHNIQUE: Multiple sonographic images of the right upper quadrant are obtained. FINDINGS: Exam slightly limited due to body habitus EXAM MEASUREMENTS: Liver Length: 24.9 cm a normal less than 15.5 cm. Gallbladder Wall: 0.22 cm CBD: 0.45 cm Right Kidney: 11.7 x 5.9 x 4.0 cm PEDIATRICIAN NOTES: Pancreas: parts seen appear wnl Liver: Increased attenuation, decreased visualization of vessels suggestive of fatty infiltrate. Ane choic area seen in left lobe measuring 0.9cm compatible with a small right lobe hepatic cyst Gallbladder: wnl Evidence for sonographic Becker's sign: No CBD: wnl Right Kidney: wnl IMPRESSION: 1. [facility] Jodee Recinos, , 04/27/2024 12:48 AM
== END | disposition home or self-care (01) ==
LOC: RADUSWWP 07:43
PROVIDERS: ATTEND Internal Medicine
DX: N18.32 Chronic kidney disease, stage 3b
CPT/HCPCS: 76705

== ENCOUNTER 2024-05-23 17:02 | Emergency (ER) | payer MEDICARE ==
[2024-05-23 17:24] VITALS: BP 173/95; PULSE 110; RESP 18; TEMP 98.6
--- NOTE | 2024-05-23 17:35 | ED ---
Recheck HPI - General Source: patient, RN notes reviewed Mode of arrival: ambulatory Limitations: no limitations <Susana Oliver - Last Filed: 05/23/24 17:34> - General Source: patient, RN notes reviewed Mode of arrival: ambulatory Limitations: no limitations <Maciej Vega - Last Filed: 05/23/24 19:23> - General Chief Complaint: Recheck/Abnormal Lab/Rx Stated Complaint: Abn labs Time Seen by Provider: 05/23/24 17:20 - History of Present Illness Initial Comments: Quick [id number] male with a history of chronic kidney disease presents emergency department chief complaint of hypophosphatemia. Patient was advised by Dr. Mccurdy, nephrology, to report to the emergency department. Patient cu rrently has no complaints. (Susana Oliver) 49-year-old male presents emergency department chief complaint of low phosphorus. Patient was sent in by his [place] line attendant Dr. Santizo. Patient has no complaints currently. Patient states he has stage III kidney disease at use closely monitored. Patient offers no other complaints. (Maciej Vega) - Related Data Home Medications Medication Instructions Recorded Confirmed allopurinoL [Zyloprim] 300 mg PO DAILY 04/29/18 09/08/23 Atorvastatin [Lipitor] 20 mg PO DAILY 03/22/22 09/08/23 Dapagliflozin Propanediol [Farxiga] 5 mg PO DAILY 08/28/23 09/08/23 FLUoxetine HCL [PROzac] 10 mg PO DAILY 08/28/23 09/08/23 Losartan Potassium 100 mg PO DAILY 08/28/23 09/08/23 Metoprolol Succinate (ER) [Toprol 25 mg PO DAILY 08/28/23 09/08/23 Xl] Multivit,Calc,Min/FA/K1/Lycop 1 each PO DAILY 08/28/23 09/08/23 [One-A-Day Men's Complete Tab] Sodium Bicarbonate Tab 650 mg PO TID 08/28/23 09/08/23 Previous Rx's Medication Instructions Recorded Fluticasone Nasal [place] [Flonase 2 spr EA NOSTRIL BID #1 ml 06/11/22 Nasal [place]] Loratadine [Claritin] 10 mg PO DAILY PRN 30 Days tab 06/11/22 Allergies Allergy/AdvReac Type Severity Reaction Status Date / Time colchicine Allergy Swelling Verified 05/23/24 17:22 latex Allergy Rash/Hives Verified 05/23/24 17:22 paliperidone [From Invega] AdvReac Nausea & Verified 05/23/24 17:22 Vomiting Review of Systems ROS Other: All systems not noted in ROS Statement are negative. <Susana Oliver - Last Filed: 05/23/24 17:34> ROS Other: All systems not noted in ROS Statement are negative. <Maciej Vega - Last Filed: 05/23/24 19:23> ROS Statement: Those systems with pertinent positive or pertinent negative responses have been documented in the HPI. Past Medical History Past Medical History: Diabetes Mellitus, Hypertension, Renal Disease Additional Past Medical History / Comment(s): Recent rectal bleed-one time and current bilateral cellulitis lower legs. Other hx: Gout bilateral feet, nephrolithiasis, past bilateral carpal tunnel syndrome but not lately, possible arthritis L ankle, elevated triglycerides with last lab draw. Sleep apnea, History of Any Multi-Drug Resistant Organisms: None Reported Additional Past Surgical History / Comment(s): POLYP REMOVED FROM NOSE AND A CYST REMOVED FROM UPPER BACK Past Anesthesia/Blood Transfusion Reactions: No Reported Reaction Past Psychological History: Anxiety, Bipolar, Depression Smoking Status: Never smoker Past Alcohol Use History: None Reported Past Drug Use History: None Reported - Past Family History Mother Family Medical History: Diabetes Mellitus, Hypertension Father Family Medical History: Congestive Heart Failure (CHF) Additional Family Medical History / Comment(s): Father from CHF one week before his 41st birthday. <Susana Oliver - Last Filed: 05/23/24 17:34> General Exam Limitations: no limitations <Susana Oliver - Last Filed: 05/23/24 17:34> General appearance: alert, in no apparent distress Head exam: Present: atraumatic, normocephalic, normal inspection Eye exam: Present: normal appearance, PERRL, EOMI. Absent: scleral icterus, conjunctival injection, periorbital swelling ENT exam: Present: normal exam, normal oropharynx, mucous membranes moist Neck exam: Present: normal inspection, full ROM. Absent: tenderness, meningismus, lymphadenopathy Respiratory exam: Present: normal lung sounds bilaterally. Absent: respiratory distress, wheezes, rales, rhonchi, stridor Cardiovascular Exam: Present: regular rate, normal rhythm, normal heart sounds. Absent: systolic murmur, diastolic murmur, rubs, gallop, clicks GI/Abdominal exam: Present: soft, normal bowel sounds. Absent: distended, tenderness, guarding, rebound, rigid <Maciej Vega - Last Filed: 05/23/24 19:23> - General Exam Comments Initial Comments: Visual Physical Exam Vital signs reviewed General: Well-appearing, nontoxic, no acute distress. Head: Normocephalic, atraumatic Eyes: PERRLA, EOMI ENT: Airway patent Chest: Nonlabored breathing Skin: No visual rash, normal skin tone Neuro: Alert and oriented 3 Musculoskeletal: No gross abnormalities (Susana Oliver) Course Vital Signs 05/23/24 17:22 Temperature 98.6 F Pulse Rate 110 H Respiratory 18 Rate Blood Pressure 173/95 O2 Sat by Pulse 95 Oximetry Medical Decision Making <Susana Oliver - Last Filed: 05/23/24 17:34> - Lab Data Result diagrams: 05/23/24 17:55 05/23/24 17:55 <Maciej Vega - Last Filed: 05/23/24 19:23> - Medical Decision Making I completed the quick note portion of this chart signed Susana Oliver PA-C (Susana Oliver) Was pt. sent in by a medical professional or institution ([facility], [facility], urgent care, hospital, or [facility]...) When possible be specific @ -Nephrology Did you speak to anyone other than the patient for history (EMS, parent, family, police, friend...)? What history was obtained from this source @ -No Did you review nursing and triage notes (agree or disagree)? Why? @ -I reviewed and agree with nursing and triage notes Were old charts reviewed (outside hosp., previous admission, EMS record, old EKG, old radiological studies, urgent care reports/EKG's, [facility] records)? Report findings @ -No old charts were reviewed Differential Diagnosis (chest pain, altered mental status, abdominal pain women, abdominal pain men, vaginal bleeding, weakness, fever, dyspnea, syncope, he adache, dizziness, GI bleed, back pain, seizure, CVA, palpatations, mental health, musculoskeletal)? @ -Chronic kidney disease, hypophosphatemia EKG interpreted by me (3pts min.). @ -None X-rays interpreted by me (1pt min.). @ -None done CT interpreted by me (1pt min.). @ -None done U/S interpreted by me (1pt. min.). @ -None done What testing was considered but not performed or refused? (CT, X-rays, U/S, labs)? Why? @ -None What meds were considered but not given or refused? Why? @ -None Did you discuss the management of the patient with other professionals (professionals i.e. DrJose, PA, [facility], lab, RT, psych nurse, child welfare social worker, security messenger, teacher, hazard mitigation officer, binder caser)? Give summary @ -No Was smoking cessation discussed for >3mins.? @ -No Was critical care preformed (if so, how long)? @ -No Were there social determinants of health that impacted care today? How? (Homelessness, low income, unemployed, alcoholism, drug addiction, transportation, low edu. Level, literacy, decrease access to med. care, [facility], rehab)? @ -No Was there de-escalation of care discussed even if they declined (Discuss DNR or withdrawal of care, Hospice)? DNR status @ -No What co-morbidities impacted this encounter? (DM, HTN, Smoking, COPD, CAD, Cancer, CVA, ARF, Chemo, Hep., AIDS, mental health diagnosis, sleep apnea, morbid obesity)? @ -Chronic kidney disease Was patient admitted / discharged? Hospital course, mention meds given and route, prescriptions, significant lab abnormalities, going to OR and other pertinent info. @ -Discharge patient's phosphorus within normal limits. Patient discharged in stable condition. Undiagnosed new problem with uncertain prognosis? @ -No Drug Therapy requiring intensive monitoring for toxicity (Heparin, Nitro, Insulin, Cardizem)? @ -No Were any procedures done? @ -No Diagnosis/symptom? @ -Recheck abnormal labs, chronic kidney disease Acute, or Chronic, or Acute on Chronic? @ -Acute, chronic Uncomplicated (without systemic symptoms) or Complicated (systemic symptoms)? @ -Uncomplicated Side effects of treatment? @ -No Exacerbation, Progression, or Severe Exacerbation? @ -No Poses a threat to life or bodily function? How? (Chest pain, [place], [place], pneumonia, PE, COPD, DKA, ARF, appy, cholecystitis, CVA, Diverticulitis, Homicidal, Suicidal, threat to staff... and all critical care pts) @ -No (Maciej Vega) - Lab Data Lab Results 05/23/24 05/23/24 Range/Units 17:55 17:55 WBC 10.1 (3.8-10.6) k/uL RBC 4.83 (4.30-5.90) m/uL Hgb 13.8 (13.0-17.5) gm/dL Hct 40.4 (39.0-53.0) % MCV 83.6 (80.0-100.0) fL MCH 28.7 (25.0-35.0) pg MCHC 34.3 (31.0-37.0) g/dL RDW 15.2 (11.5-15.5) % Plt Count 236 (150-450) k/uL MPV 7.4 Neutrophils % 65 % Lymphocytes % 19 % Monocytes % 4 % Eosinophils % 9 % Basophils % 1 % Neutrophils # 6.6 (1.3-7.7) k/uL Lymphocytes # 2.0 (1.0-4.8) k/uL Monocytes # 0.4 (0-1.0) k/uL Eosinophils # 0.9 H (0-0.7) k/uL Basophils # 0.1 (0-0.2) k/uL Sodium 139 (137-145) mmol/L Potassium 3.8 (3.5-5.1) mmol/L Chloride 105 (98-107) mmol/L Carbon Dioxide 27 (22-30) mmol/L Anion Gap 7 mmol/L BUN 12 (9-20) mg/dL Creatinine 1.73 H (0.66-1.25) mg/dL Est GFR (CKD-EPI)AfAm 53 (>60 ml/min/1.73 sqM) Est GFR (CKD-EPI)NonAf 45 (>60 ml/min/1.73 sqM) Glucose 146 H (74-99) mg/dL Calcium 8.7 (8.4-10.2) mg/dL Phosphorus 2.6 (2.5-4.5) mg/dL Magnesium 1.7 (1.6-2.3) mg/dL Total Bilirubin 0.6 (0.2-1.3) mg/dL AST 83 H (17-59) U/L ALT 65 H (4-49) U/L Alkaline Phosphatase 123 (38-126) U/L Total Protein 6.6 (6.3-8.2) g/dL Albumin 3.7 (3.5-5.0) g/dL Disposition <Susana Oliver - Last Filed: 05/23/24 17:34> Is patient prescribed a controlled substance at d/c from ED?: No Time of Disposition: 19:23 <Maciej Vega - Last Filed: 05/23/24 19:23> Clinical Impression: Chronic kidney disease, Routine lab draw Disposition: HOME SELF-CARE Condition: Stable Additional Instructions: Please return to the Emergency Department if symptoms worsen or any other c oncerns. Referrals: Nonstaff,Physician [Primary Care Provider] - 1-2 days
[2024-05-23 18:10] LABS: Basophils # (A) 0.1 k/uL (0-0.2); Basophils % (A) 1 %; Eosinophils # (A) 0.9 k/uL (0-0.7); Eosinophils % (A) 9 %; HCT 40.4 % (39.0-53.0); HGB 13.8 gm/dL (13.0-17.5); Lymphocytes % (A) 19 %; MCH 28.7 pg (25.0-35.0); MCHC 34.3 g/dL (31.0-37.0); MCV 83.6 fL (80.0-100.0); Mean Platelet Volume 7.4; Monocytes # (A) 0.4 k/uL (0-1.0); Monocytes % (A) 4 %; Neutrophils # (A) 6.6 k/uL (1.3-7.7); Neutrophils % (A) 65 %; Platelet Count 236 k/uL (150-450); RBC 4.83 m/uL (4.30-5.90); RDW 15.2 % (11.5-15.5); WBC 10.1 k/uL (3.8-10.6)
[2024-05-23 18:31] LABS: ALT 65 U/L (4-49); AST 83 U/L (17-59); African American GFR (CKD) 53 (>60 ml/min/1.73 sqM); Albumin 3.7 g/dL (3.5-5.0); Alkaline Phosphatase 123 U/L (38-126); Anion Gap 7 mmol/L; Blood Urea Nitrogen 12 mg/dL (9-20); Calcium 8.7 mg/dL (8.4-10.2); Carbon Dioxide 27 mmol/L (22-30); Chloride 105 mmol/L (98-107); Glucose 146 mg/dL (74-99); Magnesium 1.7 mg/dL (1.6-2.3); Non-African American GFR(CKD) 45 (>60 ml/min/1.73 sqM); Phosphorus 2.6 mg/dL (2.5-4.5); Potassium 3.8 mmol/L (3.5-5.1); Sodium 139 mmol/L (137-145); Total Bilirubin 0.6 mg/dL (0.2-1.3); Total Protein 6.6 g/dL (6.3-8.2)
== END 2024-05-23 19:55 | disposition home or self-care (01) ==
LOC: EC 17:02
CPT/HCPCS: 36415; 80053; 83735; 84100; 85025; 93005; 99283

== ENCOUNTER 2024-06-26 17:10 | Emergency (ER) | payer MEDICARE ==
--- NOTE | 2024-06-26 19:08 | ED ---
Psych HPI - General Chief Complaint: Psychiatric Symptoms Stated Complaint: Mental health Time Seen by Provider: 06/26/24 17:24 Source: patient Mode of arrival: ambulatory - History of Present Illness Initial Comments: 49-year-old male presents emergency department reporting concerns that [employer] is going to launch a nuclear attack. He went to the police department to obtain the phone number for the [employer]. When they did not have it he decided to come to the emergency department. He states that he has a Facebook and all of the dates have returned to 1993. He also reports that multiple people are trying to make charges on his bank account for $0. When I asked the patient this has happened to him before he said yes that he has been hospitalized upward s of 25 times for psychosis. He decided to bring himself in for evaluation. He denies suicidal ideations or homicidal ideations. No drug use. He has been taking all of his medications as directed. No other alleviating, precipitating or modifying factors - Related Data Home Medications Medication Instructions Recorded Confirmed allopurinoL [Zyloprim] 300 mg PO DAILY 04/29/18 09/08/23 Atorvastatin [Lipitor] 20 mg PO DAILY 03/22/22 09/08/23 Dapagliflozin Propanediol [Farxiga] 5 mg PO DAILY 08/28/23 09/08/23 FLUoxetine HCL [PROzac] 10 mg PO DAILY 08/28/23 09/08/23 Losartan Potassium 100 mg PO DAILY 08/28/23 09/08/23 Metoprolol Succinate (ER) [Toprol 25 mg PO DAILY 08/28/23 09/08/23 Xl] Multivit,Calc,Min/FA/K1/Lycop 1 each PO DAILY 08/28/23 09/08/23 [One-A-Day Men's Complete Tab] Sodium Bicarbonate Tab 650 mg PO TID 08/28/23 09/08/23 Previous Rx's Medication Instructions Recorded Fluticasone Nasal [place] [Flonase 2 spr EA NOSTRIL BID #1 ml 06/11/22 Nasal [place]] Loratadine [Claritin] 10 mg PO DAILY PRN 30 Days tab 06/11/22 Allergies Allergy/AdvReac Type Severity Reaction Status Date / Time colchicine Allergy Swelling Verified 06/29/24 23:43 latex Allergy Rash/Hives Verified 06/29/24 23:43 paliperidone [From Invega] AdvReac Nausea & Verified 06/29/24 23:43 Vomiting Review of Systems ROS Statement: Those systems with pertinent positive or pertinent negative responses have been documented in the HPI. ROS Other: All systems not noted in ROS Statement are negative. Past Medical History Past Medical History: Diabetes Mellitus, Hyperlipidemia, Hypertension, Renal Disease, Sleep Apnea/CPAP/BIPAP Additional Past Medical History / Comment(s): Recent rectal bleed-one time and current bilateral cellulitis lower legs. Other hx: Gout bilateral feet, nephrolithiasis, past bilateral carpal tunnel syndrome but not lately, possible arthritis L ankle, elevated triglycerides with last lab draw History of Any Multi-Drug Resistant Organisms: None Reported Additional Past Surgical History / Comment(s): POLYP REMOVED FROM NOSE AND A CYST REMOVED FROM UPPER BACK Past Anesthesia/Blood Transfusion Reactions: No Reported Reaction Past Psychological History: Anxiety, Bipolar, Depression Smoking Status: Never smoker Past Alcohol Use History: None Reported Past Drug Use History: None Reported - Past Family History Mother Family Medical History: Diabetes Mellitus, Hypertension Father Family Medical History: Congestive Heart Failure (CHF) Additional Family Medical History / Comment(s): Father from CHF one week before his 41st birthday. General Exam Limitations: altered mental status General appearance: alert, in no apparent distress Head exam: Present: atraumatic, normocephalic, normal inspection Eye exam: Present: normal appearance, PERRL, EOMI. Absent: scleral icterus, conjunctival injection, periorbital swelling ENT exam: Present: normal exam, mucous membranes moist Neck exam: Present: normal inspection. Absent: tenderness, meningismus, lymphadenopathy Respiratory exam: Present: normal lung sounds bilaterally. Absent: respiratory distress, wheezes, rales, rhonchi, stridor Cardiovascular Exam: Present: regular rate, normal rhythm, normal heart sounds. Absent: systolic murmur, diastolic murmur, rubs, gallop, clicks GI/Abdominal exam: Present: soft, normal bowel sounds. Absent: distended, tenderness, guarding, rebound, rigid Extremities exam: Present: normal inspection, full ROM, normal capillary refill. Absent: tenderness, pedal edema, joint swelling, calf tenderness Back exam: Present: normal inspection Neurological exam: Present: alert, oriented X3, CN II-XII intact Psychiatric exam: Present: normal affect, normal mood Skin exam: Present: warm, dry, intact, normal color. Absent: rash Course Vital Signs 06/26/24 06/26/24 06/26/24 17:15 18:15 19:19 Temperature 97.7 F 97.8 F 98.0 F Pulse Rate 121 H 119 H 109 H Respiratory 18 18 20 Rate Blood Pressure 187/116 172/81 160/105 O2 Sat by Pulse 97 98 98 Oximetry Medical Decision Making - Medical Decision Making Was pt. sent in by a medical professional or institution (, PA, BUSINESS SYSTEMS ADVISOR, urgent care, hospital, or [facility]...) When possible be specific @ -No Did you speak to anyone other than the patient for history (EMS, parent, family, police, friend...)? What history was obtained from this source @ -No Did you review nursing and triage notes (agree or disagree)? Why? @ -I reviewed and agree with nursing and triage notes Were old charts reviewed (outside hosp., previous admission, EMS record, old EKG, old radiological studies, urgent care reports/EKG's, [facility] records)? Report findings @ -No old charts were reviewed Differential Diagnosis (chest pain, altered mental status, abdominal pain women, abdominal pain men, vaginal bleeding, weakness, fever, dyspnea, syncope, headache, dizziness, GI bleed, back pain, seizure, CVA, palpatations, mental health, musculoskeletal)? @ -Differential Mental Health Depression, anxiety, bipolar, psychosis, schizophrenia, borderline personality, situational depression, adjustment disorder, behavioral disorder, brain tumor, malingering, substance abuse, encephalopathy, medication reaction, dementia, hypothyroidism, degenerative neurologic disorder, lupus.... This is not meant to be all-inclusive list EKG interpreted by me (3pts min.). @ -Not done X-rays interpreted by me (1pt min.). @ -None done CT interpreted by me (1pt min.). @ -None done U/S interpreted by me (1pt. min.). @ -None done What testing was considered but not performed or refused? (CT, X-rays, U/S, labs)? Why? @ -None What meds were considered but not given or refused? Why? @ -None Did you discuss the management of the patient with other professionals (professionals i.e. , PA, BUSINESS SYSTEMS ADVISOR, lab, RT, psych nurse, social work instructor, patient support associate, teacher, seismology technical officer, correctional case records supervisor)? Give summary @ -Spoke with EPS who does evaluate the patient Was smoking cessation discussed for >3mins.? @ -No Was critical care preformed (if so, how long)? @ -No Were there social determinants of health that impacted care today? How? (Homelessness, low income, unemployed, alcoholism, drug addiction, transpo rtation, low edu. Level, literacy, decrease access to med. care, alf, rehab)? @ -No Was there de-escalation of care discussed even if they declined (Discuss DNR or withdrawal of care, Hospice)? DNR status @ -No What co-morbidities impacted this encounter? (DM, HTN, Smoking, COPD, CAD, Cancer, CVA, ARF, Chemo, Hep., AIDS, mental health diagnosis, sleep apnea, morbid obesity)? @ -Schizophrenia Was patient admitted / discharged? Hospital course, mention meds given and route, prescriptions, significant lab abnormalities, going to OR and other pertinent info. @ -Upon arrival patient seen and evaluated in room 7. Thorough history and physical exam was performed. Patient is medically clear. He is evaluated by EPS. He is not suicidal or homicidal. He does have some paranoid thoughts diaz abdi they are not harmful. He has been dealing with this for a long time. He was aware that he had mild worsening of his symptoms therefore decided to seek help. EPS does feel that he is stable for discharge home and is to continue taking all of his medications as directed and follow-up with his psychiatrist. Should any of his thoughts become overwhelming or harmful he should return to the emergency department. Patient does appear to have good insight into this. Patient was discharged home in stable condition Undiagnosed new problem with uncertain prognosis? @ -No Drug Therapy requiring intensive monitoring for toxicity (Heparin, Nitro, Insulin, Cardizem)? @ -No Were any procedures done? @ -No Diagnosis/symptom? @ -Acute paranoid thoughts, history of schizophrenia Acute, or Chronic, or Acute on Chronic? @ -Acute Uncomplicated (without systemic symptoms) or Complicated (systemic symptoms)? @ -Complicated Side effects of treatment? @ -No Exacerbation, Progression, or Severe Exacerbation? @ -Yes Poses a threat to life or bodily function? How? (Chest pain, [place], [place], pneumonia, PE, COPD, DKA, ARF, appy, cholecystitis, CVA, Diverticulitis, Homicidal, Suicidal, threat to staff... and all critical care pts) @ -No Disposition Clinical Impression: Psychosis Disposition: HOME SELF-CARE Condition: Stable Instructions (If sedation given, give patient instructions): Bipolar Disorder (ED) Additional Instructions: Please follow-up with [facility] in regards to your feelings. Return for any new or worsening symptoms Is patient prescribed a controlled substance at d/c from ED?: No Referrals: Thuan Reynoso DO [Primary Care Provider] - 1-2 days Time of Disposition: 19:08
[2024-06-26 19:19] VITALS: BP 160/105; PULSE 109; RESP 20; TEMP 98
== END 2024-06-26 19:22 | disposition home or self-care (01) ==
LOC: EC 17:10
DX: F29 Unspecified psychosis not due to a substance or known physiological condition (principal); F20.9 Schizophrenia, unspecified; Z91.040 Latex allergy status; Z88.8 Allergy status to other drugs, medicaments and biological substances
CPT/HCPCS: 82075; 99284

== ENCOUNTER 2024-06-29 23:37 | Inpatient (IN) | payer MEDICARE ==
--- NOTE | 2024-06-30 00:24 | ED ---
Psych HPI - General Chief Complaint: Psychiatric Symptoms Stated Complaint: Mental Health Time Seen by Provider: 06/30/24 00:11 Source: patient Mode of arrival: ambulatory - History of Present Illness Initial Comments: This patient is a 49-year-old man with history of bipolar disorder who arrives to have psychiatric evaluation. The patient reports that for a week or so he has been having trouble sleeping. He is also concerned that Dariel Valentin is trying to break into his account. He went to the special tester department to file a report but states he was not able to. He was eventually directed to emergency department to have further evaluation. MD Complaint: other Onset/Timin -: week(s) Associated Psychiatric Symptoms: racing thoughts History of same: Yes Quality: getting worse Improves With: none Worsens With: none Associated Symptoms: insomnia - Related Data Home Medications Medication Instructions Recorded Confirmed allopurinoL [Zyloprim] 300 mg PO DAILY 04/29/18 09/08/23 Atorvastatin [Lipitor] 20 mg PO DAILY 03/22/22 09/08/23 Dapagliflozin Propanediol [Farxiga] 5 mg PO DAILY 08/28/23 09/08/23 FLUoxetine HCL [PROzac] 10 mg PO DAILY 08/28/23 09/08/23 Losartan Potassium 100 mg PO DAILY 08/28/23 09/08/23 Metoprolol Succinate (ER) [Toprol 25 mg PO DAILY 08/28/23 09/08/23 Xl] Multivit,Calc,Min/FA/K1/Lycop 1 each PO DAILY 08/28/23 09/08/23 [One-A-Day Men's Complete Tab] Sodium Bicarbonate Tab 650 mg PO TID 08/28/23 09/08/23 Previous Rx's Medication Instructions Recorded Fluticasone Nasal [place] [Flonase 2 spr EA NOSTRIL BID #1 ml 06/11/22 Nasal [place]] Loratadine [Claritin] 10 mg PO DAILY PRN 30 Days tab 06/11/22 Allergies Allergy/AdvReac Type Severity Reaction Status Date / Time colchicine Allergy Swelling Verified 06/29/24 23:43 latex Allergy Rash/Hives Verified 06/29/24 23:43 paliperidone [From Invega] AdvReac Nausea & Verified 06/29/24 23:43 Vomiting Review of Systems ROS Statement: Those systems with pertinent positive or pertinent negative responses have been documented in the HPI. ROS Other: All systems not noted in ROS Statement are negative. Constitutional: Denies: fever, chills Eyes: Denies: vision change Respiratory: Denies: cough, dyspnea Cardiovascular: Denies: chest pain, palpitations, edema Gastrointestinal: Denies: abdominal pain, vomiting, diarrhea Genitourinary: Denies: dysuria, hematuria Musculoskeletal: Denies: back pain Skin: Denies: rash Neurological: Denies: headache, weakness Psychiatric: Reports: anxiety. Denies: depression, auditory hallucinations, visual hallucinations, homicidal thoughts, suicidal thoughts Past Medical History Past Medical History: Diabetes Mellitus, Hyperlipidemia, Hypertension, Renal Disease, Sleep Apnea/CPAP/BIPAP Additional Past Medical History / Comment(s): Recent rectal bleed-one time and current bilateral cellulitis lower legs. Other hx: Gout bilateral feet, nephrolithiasis, past bilateral carpal tunnel syndrome but not lately, possible arthritis L ankle, elevated triglycerides with last lab draw History of Any Multi-Drug Resistant Organisms: None Reported Additional Past Surgical History / Comment(s): POLYP REMOVED FROM NOSE AND A CYST REMOVED FROM UPPER BACK Past Anesthesia/Blood Transfusion Reactions: No Reported Reaction Past Psychological History: Anxiety, Bipolar, Depression Smoking Status: Never smoker Past Alcohol Use History: None Reported Past Drug Use History: None Reported - Past Family History Mother Family Medical History: Diabetes Mellitus, Hypertension Father Family Medical History: Congestive Heart Failure (CHF) Additional Family Medical History / Comment(s): Father from CHF one week before his 41st birthday. General Exam Limitations: no limitations General appearance: alert, in no apparent distress Head exam: Present: atraumatic, normocephalic Eye exam: Present: normal appearance. Absent: scleral icterus, conjunctival injection Neck exam: Present: normal inspection, full ROM Respiratory exam: Present: normal lung sounds bilaterally. Absent: respiratory distress, wheezes, rales, rhonchi, stridor, accessory muscle use Cardiovascular Exam: Present: regular rate, normal rhythm, normal heart sounds. Absent: systolic murmur, diastolic murmur, rubs, gallop GI/Abdominal exam: Present: soft. Absent: distended, tenderness, guarding Extremities exam: Present: normal inspection, normal capillary refill. Absent: pedal edema, calf tenderness Back exam: Present: normal inspection Neurological exam: Present: alert Psychiatric exam: Present: manic. Absent: depressed, agitated, flat affect, homicidal ideation, suicidal ideation Skin exam: Present: warm, dry, intact, normal color. Absent: rash Course Vital Signs 06/29/24 23:43 Temperature 98 F Pulse Rate 129 H Respiratory 20 Rate Blood Pressure 148/84 O2 Sat by Pulse 96 Oximetry Medical Decision Making - Medical Decision Making Was pt. sent in by a medical professional or institution (, [facility], SLAB LIFTING ENGINEER, urgent care, hospital, or intermediate...) When possible be specific @ -[No] Did you speak to anyone other than the patient for history (EMS, parent, family, police, friend...)? What history was obtained from this source @ -[No] Did you review nursing and triage notes (agree or disagree)? Why? @ -[I reviewed and agree with nursing and triage notes] Were old charts reviewed (outside hosp., previous admission, EMS record, old EKG, old radiological studies, urgent care reports/EKG's, intermediate records)? Report findings @ -[No old charts were reviewed] Differential Diagnosis (chest pain, altered mental status, abdominal pain women, abdominal pain men, vaginal bleeding, weakness, fever, dyspnea, syncope, headache, dizziness, GI bleed, back pain, seizure, CVA, palpatations, mental health, musculoskeletal)? @ -[Differential Mental Health Depression, anxiety, bipolar, psychosis, schizophrenia, borderline personality, situational depression, adjustment disorder, behavioral disorder, brain tumor, malingering, substance abuse, encephalopathy, medication reaction, dementia, hypothyroidism, degenerative neurologic disorder, lupus.... This is not meant to be all-inclusive list EKG interpreted by me (3pts min.). @ -[As above] X-rays interpreted by me (1pt min.). @ -[None done] CT interpreted by me (1pt min.). @ -[None done] U/S interpreted by me (1pt. min.). @ -[None done] What testing was considered but not performed or refused? (CT, X-rays, U/S, labs)? Why? @ -[None] What meds were considered but not given or refused? Why? @ -[None] Did you discuss the management of the patient with other professionals (professionals i.e. Dr., PA, SLAB LIFTING ENGINEER, lab, RT, psych nurse, social worker palliative care, linemarker, teacher, first aid officer, caser in)? Give summary @ -[Case discussed with EPS personnel Was smoking cessation discussed for >3mins.? @ -[No] Was critical care preformed (if so, how long)? @ -[No] Were there social determinants of health that impacted care today? How? (Homelessness, low income, unemployed, alcoholism, drug addiction, transportatio n, low edu. Level, literacy, decrease access to med. care, correction, rehab)? @ -[No] Was there de-escalation of care discussed even if they declined (Discuss DNR or withdrawal of care, Hospice)? DNR status @ -[No] What co-morbidities impacted this encounter? (DM, HTN, Smoking, COPD, CAD, Cancer, CVA, ARF, Chemo, Hep., AIDS, mental health diagnosis, sleep apnea, morbid obesity)? @ -[None] Was patient admitted / discharged? Hospital course, mention meds given and route, prescriptions, significant lab abnormalities, going to OR and other pertinent info. @ -[Patient is a 49-year-old man here with acute psychosis. The patient will be admitted for further mental health care Undiagnosed new problem with uncertain prognosis? @ -[No] Drug Therapy requiring intensive monitoring for toxicity (Heparin, Nitro, Insulin, Cardizem)? @ -[No] Were any procedures done? @ -[No] Diagnosis/symptom? @ -[Acute psychosis Acute, or Chronic, or Acute on Chronic? @ -[Acute Uncomplicated (without systemic symptoms) or Complicated (systemic symptoms)? @ -[default] Side effects of treatment? @ -[No] Exacerbation, Progression, or Severe Exacerbation? @ -[No] Poses a threat to life or bodily function? How? (Chest pain, [place], [place], pneumonia, PE, COPD, DKA, ARF, appy, cholecystitis, CVA, Diverticulitis, Homicidal, Suicidal, threat to staff... and all critical care pts) @ -[Yes - Lab Data Result diagrams: 06/30/24 10:49 06/30/24 10:49 Lab Results 06/30/24 06/30/24 Range/Units 00:28 01:00 POC Glucose (mg/dL) 300 H (70-110) mg/dL POC Glu Apron Trimmer ID Sandie Levy SARS-CoV-2 (PCR) Not Detected (Not Detectd) Disposition Clinical Impression: Psychosis Disposition: ADMITTED IP TO THIS HOSP Condition: Fair Is patient prescribed a controlled substance at d/c from ED?: No
[2024-06-30 00:29] LABS: Glucose,Whole Blood 300 mg/dL (70-110)
[2024-06-30] MEDS: INSULIN REGULAR 100 UNIT/ML VIAL (IV) SQ STA (00:34)
[2024-06-30] MEDS ORDERED: LORazepam 1 MG TAB PO PRN (01:53)
[2024-06-30] MEDS ORDERED: MAG HYDROX/AL HYDROX/SIMETH 355 ML BOTTLE PO PRN (01:53)
[2024-06-30] MEDS ORDERED: LORazepam 2 MG/ML INJ IM PRN (01:53)
[2024-06-30] MEDS ORDERED: HALOPERIDOL LACTATE 5 MG/ML 1 ML VIAL IM PRN (01:53)
[2024-06-30] MEDS ORDERED: IBUPROFEN 600 MG TAB PO PRN (01:53)
[2024-06-30] MEDS ORDERED: haloperidoL 5 MG TAB PO PRN (01:53)
[2024-06-30 03:44] LABS: Appearance,Urine Clear (Clear); Bilirubin,Urine Negative (Negative); Blood,Urine Moderate (Negative); Budding Yeast,Urine Rare /hpf; Calcium Oxalate Crystals,Urine Rare /hpf; Color,Urine Yellow; Glucose,Urine (UA) 4+ (Negative); Hyaline Casts,Urine 14 /lpf (0-2); Ketones,Urine Negative (Negative); Leukocyte Esterase,Urine Negative (Negative); Mucus,Urine Rare /hpf; Nitrite,Urine Negative (Negative); Protein,Urine 3+ (Negative); RBC,Urine 18 /hpf (0-5); Specific Gravity,Urine 1.024 (1.001-1.035); Squamous Epithelial Cell,Urine <1 /hpf (0-4); Urobilinogen,Urine <2.0 mg/dL (<2.0); WBC,Urine 4 /hpf (0-5)
[2024-06-30 08:00] LABS: Glucose,Whole Blood 248 mg/dL (70-110)
[2024-06-30] MEDS ORDERED: DEXTROSE 50% SYRINGE 50 ML IVP PRN ×2 (08:58)
--- NOTE | 2024-06-30 09:07 | P.CONS ---
History of Present Illness - History of Present Illness This is a pleasant 49 years old male with past medical history of hypertension, hyperlipidemia, gout He presents because of paranoid psychotic signs symptoms, he thinks Dariel from [employer] is trying to get into his account associated with lack of his sleep. Patient walking the hallway with no problem, he denies any specific complaint as below. He confirms he takes medication for high blood pressure, hyperlipidemia and also he takes allopurinol 300 mg daily which he request to be added He denies smoking alcohol or illicit drugs. Is mildly tachycardic most likely related to his anxiety it was noticed that his sugar is elevated 300 -248, I discussed with the patient he said he was checked for diabetes before but he agrees to follow-up with his PCP Imelda upon discharge to check it again. Currently we will keep him on sliding scale. Also recommend diabetic diet He denies any GI or symptoms, his urine analysis looks with little glucosuria and proteinuria. He is already on losartan 100 mg daily He denies other symptoms as below Review of Systems Review of systems CONSTITUTIONAL: No fever, no malaise, no fatigue. HEENT: No recent visual problems or hearing problems. Denied any sore throat. CARDIOVASCULAR: No orthopnea, PND, no palpitations, no syncope. PULMONARY: No shortness of breath, no cough, no hemoptysis. GASTROINTESTINAL: No diarrhea, no nausea, no vomiting, no abdominal pain. Normoactive bowel sounds. NEUROLOGICAL: No headaches, no weakness, no numbness. HEMATOLOGICAL: Denies any bleeding or petechiae. GENITOURINARY: Denies any burning micturition, frequency, or urgency. MUSCULOSKELETAL/RHEUMATOLOGICAL: Denies any joint pain, swelling, or any muscle pain. ENDOCRINE: Denies any polyuria or polydipsia. Past Medical History Past Medical History: Diabetes Mellitus, Hyperlipidemia, Hypertension, Renal Disease, Sleep Apnea/CPAP/BIPAP Additional Past Medical History / Comment(s): Gout bilateral feet, nephrolithiasis, past bilateral carpal tunnel syndrome History of Any Multi-Drug Resistant Organisms: None Reported Additional Past Surgical History / Comment(s): POLYP REMOVED FROM NOSE AND A CYST REMOVED FROM UPPER BACK Past Anesthesia/Blood Transfusion Reactions: No Reported Reaction Past Psychological History: Anxiety, Bipolar, Depression Smoking Status: Never smoker Past Alcohol Use History: None Reported Past Drug Use History: None Reported - Past Family History Mother Family Medical History: Diabetes Mellitus, Hypertension Father Family Medical History: Congestive Heart Failure (CHF) Additional Family Medical History / Comment(s): Father from CHF one week before his 41st birthday. Medications and Allergies Home Medications Medication Instructions Recorded Confirmed Type allopurinoL [Zyloprim] 300 mg PO DAILY 04/29/18 09/08/23 History Atorvastatin [Lipitor] 20 mg PO DAILY 03/22/22 09/08/23 History Fluticasone Nasal [place] [Flonase 2 spr EA NOSTRIL BID #1 ml 06/11/22 09/08/23 Rx Nasal [place]] Loratadine [Claritin] 10 mg PO DAILY PRN 30 Days tab 06/11/22 09/08/23 Rx Dapagliflozin Propanediol [Farxiga] 5 mg PO DAILY 08/28/23 09/08/23 History FLUoxetine HCL [PROzac] 10 mg PO DAILY 08/28/23 09/08/23 History Losartan Potassium 100 mg PO DAILY 08/28/23 09/08/23 History Metoprolol Succinate (ER) [Toprol 25 mg PO DAILY 08/28/23 09/08/23 History Xl] Multivit,Calc,Min/FA/K1/Lycop 1 each PO DAILY 08/28/23 09/08/23 History [One-A-Day Men's Complete Tab] Sodium Bicarbonate Tab 650 mg PO TID 08/28/23 09/08/23 History Allergies Allergy/AdvReac Type Severity Reaction Status Date / Time colchicine Allergy Swelling Verified 06/29/24 23:43 latex Allergy Rash/Hives Verified 06/29/24 23:43 paliperidone [From Invega] AdvReac Nausea & Verified 06/29/24 23:43 Vomiting Physical Exam Vitals: Vital Signs Temp Pulse Pulse Resp BP BP Pulse Ox 06/30/24 03:34 98.0 F 114 H 16 131/95 97 06/29/24 23:43 98 F 129 H 20 148/84 96 Intake and Output 06/29/24 06/30/24 06/30/24 22:59 06:59 14:59 Other: Weight 162.925 kg -GENERAL: The patient is alert and oriented x3, not in any acute distress. Well developed, well nourished. Obese HEENT: Pupils are round and equally reacting to light. EOMI. No scleral icterus. No conjunctival pallor. Normocephalic, atraumatic. No pharyngeal erythema. No thyromegaly. CARDIOVASCULAR: S1 and S2 present. No murmurs, rubs, or gallops. PULMONARY: Chest is clear to auscultation, no wheezing , no crackles. ABDOMEN: Soft, nontender, nondistended, normoactive bowel sounds. No palpable organomegaly. MUSCULOSKELETAL: No joint swelling or deformity. EXTREMITIES: No cyanosis, clubbing, or pedal edema. NEUROLOGICAL: Gross neurological examination did not reveal any focal deficits. SKIN: No rashes. no petechiae. Results Labs: Abnormal Lab Results - Last 24 Hours (Table) 06/30/24 06/30/24 06/30/24 Range/Units 00:28 03:22 07:59 POC Glucose (mg/dL) 300 H 248 H (70-110) mg/dL Urine Protein 3+ H (Negative) Urine Glucose (UA) 4+ H (Negative) Urine Blood Moderate H (Negative) Urine RBC 18 H (0-5) /hpf Calcium Oxalate Crystal Rare H (None) /hpf Hyaline Casts 14 H (0-2) /lpf Urine Mucus Rare H (None) /hpf Urine Yeast (Budding) Rare H (None) /hpf Assessment and Plan Assessment: Assessment and plan: -Psychotic symptoms, insomnia and other psychiatric illnesses: Management as per psych primary team -Hypertension, resume his losartan, Farxiga and metoprolol -High glucose, rule out diabetes mellitus: Continue with insulin sliding scale, check hemoglobin A1c , Follow-up with PCP Imelda upon discharge as well as the contact information for food and beverage coordinator Dr. Baires is provided on his discharge instructions -Hyperlipidemia. Continue with statin -Obesity -Asymptomatic bacteriuria or abnormal UA. -Proteinuria. Continue with losartan and follow-up with PCP as an outpatient -History of gout, no active issue. Continue with allopurinol Low risk for DVT as his mobile We recommend patient follow-up with PCP in 1 week after discharge, he was instructed with the same and he agrees
[2024-06-30] MEDS: LOSARTAN 50 MG TAB PO SCH (09:32)
[2024-06-30] MEDS: METOPROLOL SUCCINATE (ER) 25 MG TAB.ER.24H PO SCH (09:32)
[2024-06-30] MEDS: allopurinoL 300 MG TAB PO SCH (09:35)
[2024-06-30] MEDS: ARTIFICIAL TEARS-HYPROMELLOSE DROPS 15 ML BTL BOTH EYES PRN (10:22)
--- NOTE | 2024-06-30 10:47 | P.HP ---
Psychiatric H&P - . H&P Date: 06/30/24 History & Physical: Allergies Allergy/AdvReac Type Severity Reaction Status Date / Time colchicine Allergy Swelling Verified 06/29/24 23:43 latex Allergy Rash/Hives Verified 06/29/24 23:43 paliperidone from Invega AdvReac Nausea & Verified 06/29/24 23:43 Vomiting Vital Signs Temp 98.0 F 06/30/24 03:34 Pulse 120 H 06/30/24 09:34 Resp 16 06/30/24 03:34 BP 120/78 06/30/24 09:34 Pulse Ox 97 06/30/24 03:34 FiO2 Intake & Output 06/29/24 06/30/24 06/30/24 18:59 06:59 18:59 Weight 162.925 kg Laboratory Last Values POC Glucose (mg/dL) 248 mg/dL (70-110) H 06/30/24 07:59 POC Glu Electrical Prospecting Engineer ID Bong Preston 06/30/24 07:59 Urine Color Yellow 06/30/24 03:22 Urine Appearance Clear (Clear) 06/30/24 03:22 Urine pH 6.0 (5.0-8.0) 06/30/24 03:22 Ur Specific [place] 1.024 (1.001-1.035) 06/30/24 03:22 Urine Protein 3+ (Negative) H 06/30/24 03:22 Urine Glucose (UA) 4+ (Negative) H 06/30/24 03:22 Urine Ketones Negative (Negative) 06/30/24 03:22 Urine Blood Moderate (Negative) H 06/30/24 03:22 Urine Nitrite Negative (Negative) 06/30/24 03:22 Urine Bilirubin Negative (Negative) 06/30/24 03:22 Urine Urobilinogen <2.0 mg/dL (<2.0) 06/30/24 03:22 Ur Leukocyte Esterase Negative (Negative) 06/30/24 03:22 Urine RBC 18 /hpf (0-5) H 06/30/24 03:22 Urine WBC 4 /hpf (0-5) 06/30/24 03:22 Ur Squamous Epith Cells <1 /hpf (0-4) 06/30/24 03:22 Calcium Oxalate Crystal Rare /hpf (None) H 06/30/24 03:22 Hyaline Casts 14 /lpf (0-2) H 06/30/24 03:22 Urine Mucus Rare /hpf (None) H 06/30/24 03:22 Urine Yeast (Budding) Rare /hpf (None) H 06/30/24 03:22 SARS-CoV-2 (PCR) Not Detected (Not Detectd) 06/30/24 01:00 06/30/24 10:37 IDENTIFYING DATA: Patient is a 49-year-old male, living alone and on SSD CHIEF COMPLAINT: Delusions, homicidal thoughts HPI: Patient presented to the hospital with mental health concerns. EPS evaluation revealed, "Patient brought self into ER after attempting to fill out a police report and was directed to our ER. Patient believes "Dariel Garcia is hacking my accounts". Patient is open with [facility] but states he requested a new therapist and has no appointments scheduled. Patient admits to insomnia, not sleeping for 1+ weeks. Patient appears disheveled, malodorous but is cooperative with newswriter. Patient denies SI, no previous attempts. Patient states "I am homicidal towards Irineo Carrillo and Selvin Issa". Patient does not have a specific plan but states "Gerardo is a rapist, sinful, committed insurance fraud and set up the 04/13 terrorist attacks". Patient denies hallucinations but states "I have visions, I have visions that Irineo Carrillo when in office we will going to Civil War III". Patient states he has not been able to sleep since he sent a letter to President Maegan and hasn't heard back. Patient is paranoid, with tangential speech. Patient admits to decrease in appetite, poor impulse control, poor insight and poor focus. Patient denies access to guns, weapons and states he does not have a support system. Patient states "I've been driving up and down trying to calm myself about the cabinet that Gerardo will bring in, [place] and him will have a dictatorship". Patient unsure what medications he takes as they come to him in a blister pack but does state he is compliant." Patient seen and evaluated on the unit and was agreeable with speaking to newswriter in office. He states writing a letter to Selvin Issa due to his concerns with starting world war III however did not receive a response. He believes the election was read by Dariel Valentin and [place] gruber and that they somehow hacked into his account. He states attempting to file a police report to press charges however was diverted to the ED. He reports issues with sleep and previously was prescribed CPAP for obstructive sleep apnea however has not used this for quite a while. He reports racing thoughts, grandiosity, stating he wants to start a business and go to law school. He denies any appetite changes, energy changes or anhedonia. He does report homicidal thoughts specifically towards Biden and Trump in addition to auditory hallucinations described as hearing his father's voice. Patient displayed tangential thought process with delusions described as the police shooting his father at the home however stating he saw his father in the [facility] hospital recently. Patient denies any suicidal ideations intent or plan. At this time patient denies any visual hallucinations. Patient admits to using no substances. Patient states he only needs trazodone so that he can get his sleep together and does not wish to be on any other psychotropic medications. Discussed with patient his voluntary status and that this may need to be changed to involuntary if he has not willing to take meds however he was then agreeable with starting Zyprexa. PAST PSYCHIATRIC HISTORY: Patient has a history of bipolar disorder, cannabis use disorder. Patient denies being on any psychiatric medications. He has t ried Abilify, trazodone, Trileptal in the past per chart review. Patient reports at least 20 previous inpatient hospitalizations, most recent 1.5 years ago. Patient denies any psychiatric outpatient follow-up. Patient denies any history of suicide attempts in the past. PMH: as per ER note ALLERGIES: as per EMR SUBSTANCE USE HISTORY: Patient denies any substances FAMILY PSYCHIATRIC/SUBSTANCE USE HISTORY: Patient reports his grandmother suffered from mental illness and that his uncle attempted suicide while in retirement SOCIAL HISTORY: Patient has a daughter and is from his . He claims to have completed his LISETH however is on SSD. He lives alone. MENTAL STATUS EXAM: General Appearance: Patient appears to be stated age is alert, however requires frequent redirection but is largely cooperative. Patient appears to have poor hygiene and grooming. Behavior: Patient is seated without any agitated behavior. Speech: Patient's speech is fluent and talkative, interruptible Mood/Affect: Patient reports their mood is "all right", affect is congruent and constricted. Suicidality/Homicidality: Patient reports homicidal ideation, no intent or plan. Denies any suicidal ideations intent or plan Perceptions: Patient denies any visual hallucinations however reports auditory hallucinations Though content/process: Thought process is tangential and there is grandiose and persecutory delusions Memory and concentration: AOX3, grossly intact for the purposes of this session. Can spell "WORLD" backwards Judgment and insight: Poor STRENGTHS/WEAKNESSES: strength is that patient is resilient and uses no substances. Weakness is that patient has poor judgment and is impulsive INTELLECT: Average IMPRESSIONS: Bipolar 1 disorder, current episode manic with psychotic features PLAN: -Patient is admitted under voluntary status to MHU for stabilization of psychiatric symptoms and safety. Patient has signed adult voluntary form and medication consent and is placed in patient's chart. -Medications : Zyprexa zydis 10 mg ODT at bedtime for bipolar joya, trazodone 50 mg as needed at bedtime for sleep -Ativan and Haldol PRN for agitation/aggression -Patient was informed of the risks, benefits and side effects of the medication and patient verbally consented to taking the medications. Patient signed med consent form and was placed in chart. -Internal Medicine consult to perform medical evaluation and physical. -NRT -not needed as patient does not smoke -SW on board for discharge planning. Encourage patient to participate in groups to work on coping skills. 06/30/24 10:46
[2024-06-30 11:19] LABS: Basophils # (A) 0.1 k/uL (0-0.2); Basophils % (A) 1 %; Eosinophils # (A) 0.4 k/uL (0-0.7); Eosinophils % (A) 4 %; HCT 43.8 % (39.0-53.0); HGB 14.5 gm/dL (13.0-17.5); Lymphocytes # (A) 2.2 k/uL (1.0-4.8); Lymphocytes % (A) 20 %; MCH 28.2 pg (25.0-35.0); MCV 85.2 fL (80.0-100.0); Mean Platelet Volume 6.7; Monocytes # (A) 0.5 k/uL (0-1.0); Monocytes % (A) 5 %; Neutrophils # (A) 7.6 k/uL (1.3-7.7); Neutrophils % (A) 69 %; Platelet Count 280 k/uL (150-450); RBC 5.14 m/uL (4.30-5.90); RDW 14.5 % (11.5-15.5); WBC 10.9 k/uL (3.8-10.6)
[2024-06-30 11:35] LABS: ALT 74 U/L (4-49); AST 78 U/L (17-59); African American GFR (CKD) 55 (>60 ml/min/1.73 sqM); Albumin 3.9 g/dL (3.5-5.0); Alkaline Phosphatase 141 U/L (38-126); Anion Gap 8 mmol/L; Bilirubin, Delta 0.2 mg/dL (0.0-0.2); Bilirubin,Unconjugated 0.8 mg/dL (0.0-1.1); Blood Urea Nitrogen 12 mg/dL (9-20); Calcium 8.8 mg/dL (8.4-10.2); Carbon Dioxide 20 mmol/L (22-30); Chloride 107 mmol/L (98-107); Glucose 258 mg/dL (74-99); Non-African American GFR(CKD) 48 (>60 ml/min/1.73 sqM); Potassium 3.9 mmol/L (3.5-5.1); Sodium 135 mmol/L (137-145); Total Protein 6.9 g/dL (6.3-8.2)
[2024-06-30 13:09] LABS: Glucose,Whole Blood 225 mg/dL (70-110)
[2024-06-30] MEDS: INSULIN ASPART (NovoLOG) 100 UNIT/ML VIAL SQ SCH (13:12)
[2024-06-30 17:39] LABS: Glucose,Whole Blood 217 mg/dL (70-110)
[2024-06-30 19:28] LABS: Urine Alcohol Negative (Negative); Urine Barbiturate Negative (Negative); Urine Cocaine Negative (Negative); Urine Methadone Negative (Negative); Urine Opiates Negative (Negative); Urine Phencyclidine Negative (Negative)
[2024-06-30 20:13] LABS: Glucose,Whole Blood 158 mg/dL (70-110)
[2024-06-30] MEDS: OLANZapine ODT 10 MG TAB PO SCH (20:53)
[2024-07-01] MEDS ORDERED: glipiZIDE 5 MG TAB PO SCH (07:30)
[2024-07-01 10:19] LABS: Chol/HDL Ratio 5.05 Ratio; LDL Cholesterol,Calculated 53.3 mg/dL (0.0-131.0)
--- NOTE | 2024-07-01 10:38 | P.PN ---
Progress Note - Text Progress Note Date: 07/01/24 Interval History: Patient was seen wandering the hallways and was directable and agreeable to sp andriy with science writer in the office. He reports suffering a stroke after taking the Zyprexa overnight. Specifically, he states experiencing lightheadedness however denied any of this thus far today. Vitals are stable. He does report good sleep overnight with the medication however he does not want to take this again tonight. He feels like he only needs trazodone for sleep. Attempted to discuss with patient several different options for medications however he was not amenable to any, stating he wished to be converted involuntary and request a jury trial. He states he is willing to stay here for several months as he has done this before at a different facility. Patient continues to display delusional thoughts with homicidal thoughts towards Irineo Carrillo. He denied any suicidal ideations or auditory/visual hallucinations. Mental Status Exam: General Appearance: Patient appears to be stated age is alert, directable, and cooperative. Behavior: Patient is calmly seated without any agitated behavior. Speech: Patient's speech is fluent and nonpressured. Mood/Affect: Mood is "okay", affect is congruent and constricted. Suicidality/Homicidality: Patient denies having any suicidal ideations but does report homicidal ideation towards Irineo Carrillo. Perceptions: Patient denies any visual hallucinations and denies any auditory hallucinations Though content/process: Patient is politically preoccupied with persecutory delusions Memory and concentration: AOX3, grossly intact for the purposes of this session Judgment and insight: poor Assessment Bipolar 1 disorder, current episode manic with psychotic features Plan: -Patient continues to meet criteria for inpatient psychiatric admission for symptom stabilization and safety. Patient has signed adult voluntary form and medication consent and was placed in patient's chart. Patient today states he does not wish to take any psychotropic medications other than trazodone so he will be converted involuntarily, petition and 2 CERT's will be submitted to the courts -Medications: Continue to offer Zyprexa Zydis 10 mg ODT at bedtime for bipolar joya, trazodone 50 mg as needed at bedtime for sleep -When necessary Ativan and Haldol for agitation/aggression. -Labs: Reviewed -SW on board for discharge planning. Encouraged the patient to participate in milieu. Currently awaiting deferral with director of recruitment and court date.
[2024-07-01] MEDS: traZODone HCL 50 MG TAB PO PRN (21:19)
[2024-07-02] MEDS: ACETAMINOPHEN TAB 325 MG TAB PO PRN (02:56)
[2024-07-02] MEDS: METOPROLOL SUCCINATE (ER) 50 MG TAB.ER.24H PO SCH (08:53)
--- NOTE | 2024-07-02 11:03 | P.PN ---
Progress Note - Text Progress Note Date: 07/02/24 Interval history: Patient was seen sitting in the lounge and was directable and agreeable to speak with engineering technical writer. He claims that he had a "gout attack" last night. Claims that he slept fairly despite that. He continues to have fairly poor insight and judgment. Was less focused on delusions today, was fairly concrete and evasive. He claims he has a fair appetite at this time. Not reporting any depression or anxiety. At this time patient denies any suicidal or homicidal ideations intent or plan. Denies any Auditory or visual hallucinations. Patient denies any side effects from the medications and has been compliant with meds. Mental status exam: General Appearance: Patient appears to be obese, shaved head, stated age is alert, directable, and fairly evasive. Behavior: No agitated behavior. Patient is calm and directable, evasive Speech: Patient's speech is fluent and nonpressured. [place] Mood/Affect: Mood is improving mildly, affect is congruent and constricted. Suicidality/Homicidality: Patient denies having any suicidal or homicidal ideation intent or plan. Perceptions: Patient denies any auditory or visual hallucinations. Though content/process: There is no evidence of any delusional thought content and thought process is linear and goal-directed. Memory and concentration: AOX3, grossly intact for the purposes of this session Judgment and insight: Poor Assessment/Plan: Continue with current diagnosis. Patient continues to meet criteria for inpatient psychiatric admission for symptom stabilization and safety. Patient will be maintained on current psychotropic medication regimen. Monitor for medication compliance and for any psychotropic medication side effects. Will continue to monitor ongoing response to treatment. Encouraged participation in milieu.
--- NOTE | 2024-07-03 10:41 | P.PN ---
Progress Note - Text Progress Note Date: 07/03/24 Interval history: Patient was seen laying in on his bed this morning. He was approached by business writer to speak today however patient turned around and stated "no I am not talking to you today go away". He then proceeded to turn around and refused to talk to business writer any further. Mental status exam: General Appearance: Patient appears to be obese, shaved head, stated age is alert, directable, and fairly evasive. Behavior: Evasive, uncooperative Speech: Patient's speech is fluent and nonpressured. [place] Mood/Affect: Unable to assess Suicidality/Homicidality: Unable to assess Perceptions: Unable to assess Though content/process: Alpha, demanding Memory and concentration: Unable to assess Judgment and insight: Poor Assessment/Plan: Continue with current diagnosis. Patient continues to meet criteria for inpatient psychiatric admission for symptom stabilization and safety. Patient will be maintained on current psychotropic medication regimen. Monitor for medication compliance and for any psychotropic medication side effects. Will continue to monitor ongoing response to treatment. Encouraged participation in milieu.
--- NOTE | 2024-07-04 10:42 | P.PN ---
Progress Note - Text Progress Note Date: 07/04/24 Interval History: Patient was seen sitting in the day room and initially was not agreeable to sp oluk with credit underwriter however he was able to speak in the sharpe briefly. He continues to display poor insight, stating he does not need any psychotropic medications. The involuntary process was discussed with patient as he has been refusing Zyprexa at nighttime over the weekend. Received several papers written from patient explaining his desire to switch psychiatrists to one that is tele and how he is "of sound mind and character and do not trust these Darrick a trying to prescribe unnecessary psychotropics and false diagnosis". Patient also wrote how "psychotropics are derived from [employer]" and how will I have had more than enough of these attempts of mind control." He otherwise report poor sleep however does not wish to change trazodone. He reports an increase in pain related to gout. Mental Status Exam: General Appearance: Patient appears to be stated age is alert but largely uncooperative. Patient is overweight Behavior: Patient is calmly standing without any agitated behavior. Speech: Patient's speech is fluent and nonpressured. Mood/Affect: Mood is "okay", affect is congruent and constricted. Suicidality/Homicidality: Patient denies having any suicidal or homicidal ideation intent or plan. Perceptions: Patient denies any visual hallucinations and denies any auditory hallucinations Though content/process: There is evidence of persecutory delusions Memory and concentration: AOX3, grossly intact for the purposes of this session Judgment and insight: poor Assessment Bipolar 1 disorder, current episode manic with psychotic features Plan: -Patient continues to meet criteria for inpatient psychiatric admission for symptom stabilization and safety. Patient has not signed adult voluntary form and medication consent and was placed in patient's chart. -Medications: Continue to offer Zyprexa ODT 10 mg at bedtime for bipolar joya, trazodone 50 mg as needed at bedtime for sleep -When necessary Ativan and Haldol for agitation/aggression. -Labs: Reviewed -SW on board for discharge planning. Encouraged the patient to participate in milieu. Currently awaiting deferral with banking attorney and court date. Patient continues to refuse psychotropic medications
[2024-07-05 07:55] LABS: Glucose,Whole Blood 284 mg/dL (70-110)
--- NOTE | 2024-07-05 12:10 | P.PN ---
Progress Note - Text Progress Note Date: 07/05/24 Interval History: Patient was seen in the day room and was directable and agreeable to speak with automatic typewriter inspector in the sharpe. He reports some lethargy related to caffeine withdrawal's however he reports good sleep overnight with the trazodone, reportedly sleeping for 5.5 hours overnight. He states otherwise mood is okay and he is still not amenable to starting psychotropic medications. Patient reportedly has been making statements about requesting a jury trial as he has done this at a previous hospital. He rates his gout pain 5-6 today. At this time patient denies any suicidal or homicidal ideations, intent or plan. Patient denies any auditory, visual hallucinations. He has been nonadherent with most medications including Zyprexa. Mental Status Exam: General Appearance: Patient appears to be stated age is alert, directable, and cooperative. He is overweight and wears glasses Behavior: Patient is calmly standing without any agitated behavior. Speech: Patient's speech is fluent and nonpressured. Mood/Affect: Mood is "great", affect is congruent and constricted. Suicidality/Homicidality: Patient denies having any suicidal or homicidal ideation intent or plan. Perceptions: Patient denies any visual hallucinations and denies any auditory hallucinations Though content/process: There is evidence of persecutory delusions Memory and concentration: AOX3, grossly intact for the purposes of this session Judgment and insight: poor Assessment Bipolar 1 disorder, current episode manic with psychotic features Plan: -Patient continues to meet criteria for inpatient psychiatric admission for symptom stabilization and safety. Patient has not signed adult voluntary form and medication consent and was placed in patient's chart. -Medications: Continue to offer Zyprexa ODT 10 mg at bedtime for bipolar joya, trazodone 50 mg as needed at bedtime for sleep -When necessary Ativan and Haldol for agitation/aggression. -Labs: Reviewed -NRT -nicotine patch -SW on board for discharge planning. Encouraged the patient to participate in milieu. Currently awaiting deferral with helmet binder and court date.
[2024-07-05 12:55] LABS: Glucose,Whole Blood 121 mg/dL (70-110)
--- NOTE | 2024-07-05 17:02 | P.PN ---
Progress Note - Text Progress Note Date: 07/05/24 - History of Present Illness This is a pleasant 49 years old male with past medical history of hypertension, hyperlipidemia, gout He presents because of paranoid psychotic signs symptoms, he thinks Dariel from [employer] is trying to get into his account associated with lack of his sleep. Patient walking the hallway with no problem, he denies any specific complaint as below. He confirms he takes medication for high blood pressure, hyperlipidemia and also he takes allopurinol 300 mg daily which he request to be added He denies smoking alcohol or illicit drugs. Is mildly tachycardic most likely related to his anxiety it was noticed that his sugar is elevated 300 -248, I discussed with the patient he said he was checked for diabetes before but he agrees to follow-up with his PCP Imelda upon discharge to check it again. Currently we will keep him on sliding scale. Also recommend diabetic diet He denies any GI or symptoms, his urine analysis looks with little glucosuria and proteinuria. He is already on losartan 100 mg daily He denies other symptoms as below July 3: Up and about. Eating well. Has some pain in the right hip. She does take indomethacin at home for gout. Requesting the same. Patient is rather cheerful. Patient cannot take the Indocin because of his renal function. Take Tylenol. Active Medications Acetaminophen (Acetaminophen Tab 325 Mg Tab) 650 mg PO Q4HR PRN PRN Reason: Mild Pain (Scale 1 to 3) Last Admin: 07/04/24 00:08 Dose: 650 mg Al Hydroxide/Mg Hydroxide (Mag Hydrox/Al Hydrox/Simeth 355 Ml Bottle) 30 ml PO Q4HR PRN PRN Reason: GI Upset Allopurinol (Allopurinol 300 Mg Tab) 300 mg PO DAILY [facility] Last Admin: 07/05/24 08:23 Dose: 300 mg Artificial Tears (Artificial Tears-Hypromellose Drops 15 Ml Btl) 1 drops BOTH EYES TID PRN PRN Reason: Dry Eye(s) Last Admin: 07/05/24 13:41 Dose: 1 drops Atorvastatin Calcium (Atorvastatin 20 Mg Tab) 20 mg PO DAILY [facility] Dapagliflozin (Dapagliflozin Propanediol 5 Mg Tablet) 5 mg PO DAILY [facility] Dextrose/Water (Dextrose 50% Syringe 50 Ml) 25 ml IVP PER PROTOCOL PRN; Protocol PRN Reason: Hypoglycemia Dextrose/Water (Dextrose 50% Syringe 50 Ml) 50 ml IVP PER PROTOCOL PRN; Protocol PRN Reason: Hypoglycemia Glipizide (Glipizide 2.5 Mg Tab) 2.5 mg PO AC[facility] Last Admin: 07/05/24 08:23 Dose: 2.5 mg Haloperidol (Haloperidol 5 Mg Tab) 5 mg PO Q6HR PRN PRN Reason: Agitation Haloperidol Lactate (Haloperidol Lactate 5 Mg/Ml 1 Ml Vial) 5 mg IM Q6HR PRN PRN Reason: Severe Agitation Insulin Aspart (Insulin Aspart (Novolog) 100 Unit/Ml Vial) [address] [facility]; Protocol Last Admin: 07/05/24 12:55 Dose: Not Given Lorazepam (Lorazepam 1 Mg Tab) 1 mg PO Q6HR PRN PRN Reason: Anxiety Lorazepam (Lorazepam 1 Mg Tab) 1 mg PO Q6HR PRN PRN Reason: Agitation Lorazepam (Lorazepam 2 Mg/Ml Inj) 1 mg IM Q6HR PRN PRN Reason: Severe Agitation Losartan Potassium (Losartan 50 Mg Tab) 100 mg PO DAILY [facility] Last Admin: 07/05/24 08:23 Dose: Not Given Magnesium Hydroxide (Magnesium Hydroxide 2,400 Mg/30 Ml Cup) 2,400 mg PO DAILY PRN PRN Reason: Constipation Metoprolol Succinate (Metoprolol Succinate (Er) 50 Mg Tab.Er.24h) 50 mg PO DAILY [facility] Last Admin: 07/05/24 08:23 Dose: Not Given Olanzapine (Olanzapine Odt 10 Mg Tab) 10 mg PO HS [facility] Last Admin: 07/04/24 22:07 Dose: Not Given Sodium Bicarbonate (Sodium Bicarbonate Tab 650 Mg Tab) 650 mg PO TID [facility] Trazodone HCl (Trazodone Hcl 50 Mg Tab) 50 mg PO HS PRN PRN Reason: Insomnia Last Admin: 07/04/24 22:09 Dose: 50 mg On examination: VITAL SIGNS: [98.4, 101, 18, 08/24/1980, 97% room air] GENERAL APPEARANCE: BMI 114.4, sitting her chair awake comfortable HEENT: Normal external appearance of nose and ear. Oral cavity normal EYES: Pupils equal. Conjunctiva normal. NECK: JVD not raised. Mass not palpable. RESPIRATORY: Respiratory effort normal. Lungs clear to auscultation. CARDIOVASCULAR: First and second sounds normal. No edema. ABDOMEN: Soft. Liver and spleen not palpable. No tenderness. No mass palpable. PSYCHIATRY: Alert and oriented x3. Mood and affect bit hyperactive INVESTIGATIONS, reviewed in the clinical context: June 30: White count 10.9 hemoglobin 14.5 potassium 3.9 BUN 12 creatinine 1.67 LDL 53.3 TSH 1.8 Past Medical History Past Medical History: Diabetes Mellitus, Hyperlipidemia, Hypertension, Renal Disease, Sleep Apnea/CPAP/BIPAP Additional Past Medical History / Comment(s): Gout bilateral feet, nephrolithiasis, past bilateral carpal tunnel syndrome History of Any Multi-Drug Resistant Organisms: None Reported Additional Past Surgical History / Comment(s): POLYP REMOVED FROM NOSE AND A CYST REMOVED FROM UPPER BACK Past Anesthesia/Blood Transfusion Reactions: No Reported Reaction Past Psychological History: Anxiety, Bipolar, Depression Smoking Status: Never smoker Past Alcohol Use History: None Reported Past Drug Use History: None Reported - Past Family History Mother Family Medical History: Diabetes Mellitus, Hypertension Father Family Medical History: Congestive Heart Failure (CHF) Additional Family Medical History / Comment(s): Father from CHF one week before his 41st birthday. Assessment and plan: -Psychotic symptoms, insomnia and other psychiatric illnesses: Management as per psych primary team -Hypertension losartan, Farxiga and metoprolol -Diabetes mellitus type 2 , Follow-up with PCP Imelda upon discharge as well as the contact information for cardiopulmonary supervisor Dr. Baires is provided on his discharge instructions -Hyperlipidemia. Statin -Morbid obesity, BMI 114.4 Weight loss measures -Chronic kidney disease stage III likely nephrosclerosis/diabetic nephropathy Should follow-up with nephrology outpatient. Dr. Covarrubias -Asymptomatic bacteriuria or abnormal UA. -Proteinuria. Continue with losartan and follow-up with PCP as an outpatient -Chronic gout continue with allopurinol She should not take NSAIDs given his kidney function. It may have also contributed to his current renal function. Use Tylenol as needed.
[2024-07-05 17:47] LABS: Glucose,Whole Blood 191 mg/dL (70-110)
[2024-07-05] MEDS: ATORVASTATIN 20 MG TAB PO SCH (17:48)
[2024-07-05] MEDS: DAPAGLIFLOZIN PROPANEDIOL 5 MG TABLET PO SCH (17:48)
[2024-07-05] MEDS: SODIUM BICARBONATE TAB 650 MG TAB PO SCH (17:50)
[2024-07-05 20:08] LABS: Glucose,Whole Blood 261 mg/dL (70-110)
[2024-07-06] MEDS: INDOMETHACIN 25 MG CAP PO PRN (10:43)
--- NOTE | 2024-07-06 13:46 | P.PN ---
Progress Note - Text Progress Note Date: 07/06/24 Interval History: Patient was seen in the sharpe and was directable and agreeable to speak with wr iter in the sharpe. He continues to refuse most medications including his insulin and psychotropic meds other than trazodone. Patient continues to display delusional thoughts with political preoccupation, stating that the election was rigged and he does not feel like Trump should be in office. He reports mild gout flareup. Discussed with patient the involuntary process and the next steps. He expressed no other concerns. Mental Status Exam: General Appearance: Patient appears to be stated age is alert, directable, and cooperative. He is overweight and wears glasses Behavior: Patient is calmly standing without any agitated behavior. Speech: Patient's speech is fluent and nonpressured. Mood/Affect: Mood is "great", affect is congruent and constricted. Suicidality/Homicidality: Patient denies having any suicidal or homicidal ideation intent or plan. Perceptions: Patient denies any visual hallucinations and denies any auditory hallucinations Though content/process: There is evidence of persecutory delusions Memory and concentration: AOX3, grossly intact for the purposes of this session Judgment and insight: poor Assessment Bipolar 1 disorder, current episode manic with psychotic features Plan: -Patient continues to meet criteria for inpatient psychiatric admission for symptom stabilization and safety. Patient has not signed adult voluntary form and medication consent and was placed in patient's chart. -Medications: Continue to offer Zyprexa ODT 10 mg at bedtime for bipolar joya, trazodone 50 mg as needed at bedtime for sleep -When necessary Ativan and Haldol for agitation/aggression. -Labs: Reviewed -NRT -nicotine patch -SW on board for discharge planning. Encouraged the patient to participate in milieu. Currently awaiting deferral with civil rights attorney and court date.
--- NOTE | 2024-07-07 11:48 | P.PN ---
Progress Note - Text Progress Note Date: 07/07/24 Interval History: Patient was seen in the [facility] and was directable and agreeable to speak with singer songwriter in the sharpe. Patient did not sign a deferral yesterday and we are awaiting court next week. Patient has made comments about requesting a jury trial. Patient continues to display poor insight as well as confusion, stating he is here voluntarily despite previously the involuntary process being explained to the patient. He slept only 2 hours overnight per staff report. Patient today states feeling "great" and expressed no concerns. He states feeling like he needs no psychotropic medications other than cannabis. He reports a history of adverse effects from psychotropic medications and was not amenable with alternatives. He continues to refuse Zyprexa. Mental Status Exam: General Appearance: Patient appears to be stated age is alert, directable, and cooperative. He is overweight Behavior: Patient is calmly standing without any agitated behavior. Speech: Patient's speech is fluent and nonpressured. Mood/Affect: Mood is "great", affect is congruent and constricted. Suicidality/Homicidality: Patient denies having any suicidal or homicidal ideation intent or plan. Perceptions: Patient denies any visual hallucinations and denies any auditory hallucinations Though content/process: There is evidence of persecutory delusions, illogical thoughts Memory and concentration: AOX3, grossly intact for the purposes of this session Judgment and insight: poor Assessment Bipolar 1 disorder, current episode manic with psychotic features Plan: -Patient continues to meet criteria for inpatient psychiatric admission for symptom stabilization and safety. Patient has not signed adult voluntary form and medication consent and was placed in patient's chart. -Medications: Continue to offer Zyprexa ODT 10 mg at bedtime for bipolar joya, trazodone 50 mg as needed at bedtime for sleep -When necessary Ativan and Haldol for agitation/aggression. -Labs: Reviewed -SW on board for discharge planning. Encouraged the patient to participate in milieu. Awaiting court next week, patient continues to refuse psychotropic medications
--- NOTE | 2024-07-08 12:26 | P.PN ---
Progress Note - Text Progress Note Date: 07/08/24 Interval History: Patient was seen wandering the hallways and was directable and agreeable to sp eak with handbook writer in the sharpe. He continues to display poor insight, refusing both insulin and Zyprexa. Patient however is pleasant on the unit, requiring no as needed medications and attending groups. He displays ongoing paranoia with persecutory delusions, stating handbook writer is playing mind games and that he did not speak with a customer service manager on Thursday and it was yesterday instead despite the evidence contradicting this. He states he slept 8 hours overnight and did not even need the trazodone. At this time patient denies any suicidal or homicidal ideations, intent or plan. Mental Status Exam: General Appearance: Patient appears to be stated age is alert, directable, and overall cooperative. He is overweight Behavior: Patient is calmly standing without any agitated behavior. Speech: Patient's speech is fluent and nonpressured. Mood/Affect: Mood is "excellent", affect is congruent and expansive. Suicidality/Homicidality: Patient denies having any suicidal or homicidal ideation intent or plan. Perceptions: Patient denies any visual hallucinations and denies any auditory hallucinations Though content/process: There is evidence of paranoia, persecutory delusions Memory and concentration: AOX3, grossly intact for the purposes of this session Judgment and insight: poor Assessment Bipolar 1 disorder, current episode manic with psychotic features Plan: -Patient continues to meet criteria for inpatient psychiatric admission for symptom stabilization and safety. Patient has not signed adult voluntary form and medication consent and was placed in patient's chart. -Medications: Continue to offer Zyprexa ODT 10 mg at bedtime for bipolar joya (these note the patient has been refusing this medication), trazodone 50 mg as needed at bedtime for sleep -When necessary Ativan and Haldol for agitation/aggression. -Labs: Reviewed -SW on board for discharge planning. Encouraged the patient to participate in milieu. Patient did not sign deferral, awaiting court next week
--- NOTE | 2024-07-09 19:06 | P.PN ---
Progress Note - Text Interval History: Patient was seen in the [facility] and was directable and agreeable to speak with investigative writer. He stated his name and said "STANLEY Miguel". He went on to share that he's feeling "agitated" due to being unable to have indomethacin as pain relief for his gout. He explained that he thinks it is related to his kidney function but he would like to receive the medication anyway, stating "my kidneys are functioning fine I drink 2 L and I pee 2L". He on to say that he hopes the current president and present elect will "stand trial for crimes against humanity" and expresses concern that the president elect will and social support programs. He went on to say that he does not have bipolar disorder or any need for mood stabilizing medication. At this time patient denies any suicidal or homical ideations, intent or plan. Patient denies any auditory, visual hallucinations and denies any paranoia or delusions. Patient denies any side effects from the medications and remains noncompliant with olanzapine. Mental Status Exam: General Appearance: Patient appears to be stated age is alert, directable, and cooperative. Behavior: Patient is calmly seated without any agitated behavior. Speech: Patient's speech is fluent and non-pressured. Mood/Affect: Mood is "agitated", affect is congruent and constricted. Suicidality/Homicidality: Patient denies having any suicidal or homicidal ideation intent or plan. Perceptions: Patient denies any visual hallucinations and denies any auditory hallucinations Though content/process: Grandiose. Thought process is tangential. Memory and concentration: AOX3, grossly intact for the purposes of this session Judgment and insight: Poor Assessment Bipolar 1 disorder, current episode manic with psychotic features Plan: -Patient continues to meet criteria for inpatient psychiatric admission for symptom stabilization and safety. Patient has not signed adult voluntary form and medication consent and was placed in patient's chart. -Medications: - Continue to offer Zyprexa ODT 10 mg at bedtime for bipolar joya (the patient has been refusing this medication) - Trazodone 50 mg as needed at bedtime for sleep -When necessary Ativan and Haldol for agitation/aggression. -Labs: No new labs -SW on board for discharge planning. Encouraged the patient to participate in milieu. Patient did not sign deferral, awaiting court next week
[2024-07-10] MEDS: LORazepam 1 MG TAB PO PRN (02:24)
[2024-07-10 12:47] LABS: Glucose,Whole Blood 159 mg/dL (70-110)
[2024-07-10 17:43] LABS: Glucose,Whole Blood 201 mg/dL (70-110)
--- NOTE | 2024-07-10 17:50 | P.PN ---
Progress Note - Text Interval History: Patient was seen in the hallway and was directable and agreeable to speak with life insurance underwriter in the office. His biggest concern this morning was that he continues to experience pain in his hip secondary to a gout flare and is unable to take indomethacin. We spoke at length about the fact that his kidneys are presently unhappy and that a dose of indomethacin could last him to stop functioning. He explained that he understands this risk and would like the medicine anyway because of the nature of his pain. We discussed this several times during the conversation and at 1 point he said "there is nothing wrong with my kidneys". Regarding mood he said "things are looking up" and he feels generally well overall. At this time patient denies any suicidal ideation, intent or plan. When asked about homicidal ideation he initially stated "I plead the fifth" and then upon further questioning went on to share that he did not have any desire to harm or kill anyone. Patient denies any auditory, visual hallucinations and denies any paranoia or delusions. Patient denies any side effects from the medications and remains noncompliant with olanzapine. Mental Status Exam: General Appearance: Patient appears to be stated age is alert, directable, and cooperative. Behavior: Patient is calmly seated without any agitated behavior. Speech: Patient's speech is fluent and non-pressured. Mood/Affect: Mood is "shantelle up", affect is congruent and euthymic Suicidality/Homicidality: Patient denies having any suicidal or homicidal ideation intent or plan. Perceptions: Patient denies any visual hallucinations and denies any auditory hallucinations Though content/process: Thought process is tangential. Memory and concentration: AOX3, grossly intact for the purposes of this session Judgment and insight: Poor Assessment Bipolar 1 disorder, current episode manic with psychotic features Plan: -Patient continues to meet criteria for inpatient psychiatric admission for symptom stabilization and safety. Patient has not signed adult voluntary form and medication consent and was placed in patient's chart. -Medications: - Continue to offer Zyprexa ODT 10 mg at bedtime for bipolar joya (the patient has been refusing this medication) - Trazodone 50 mg as needed at bedtime for sleep -When necessary Ativan and Haldol for agitation/aggression. -Labs: No new labs -SW on board for discharge planning. Encouraged the patient to participate in milieu. Patient did not sign deferral, awaiting court next week
--- NOTE | 2024-07-11 12:10 | P.PN ---
Progress Note - Text Progress Note Date: 07/11/24 Interval History: Patient was seen wandering the hallways and was directable and agreeable to sp eak with mortgage or loan underwriter in the [place]. He continues to omit olanzapine and most other medications other than allopurinol despite encouragement and psychoeducation. He states mortgage or loan underwriter is prescribing medications that he do not need and would not give him medications that he wants. Patient was once again educated on his kidney function and how it would not be safe practice to start indomethacin for a reported gout flareup however patient insist on being on this medication "AMA ". Patient has upcoming court on Thursday and patient was reminded of this today. At this time patient denies any suicidal or homicidal ideations, intent or plan. Mental Status Exam: General Appearance: Patient appears to be stated age is alert, directable, and cooperative. Patient is overweight Behavior: Patient is calmly standing without any agitated behavior. Speech: Patient's speech is fluent and nonpressured. Mood/Affect: Mood is "okay", affect is congruent and constricted. Suicidality/Homicidality: Patient denies having any suicidal or homicidal ideation intent or plan. Perceptions: Patient denies any visual hallucinations and denies any auditory hallucinations Though content/process: Patient continues to display grandiose and persecutory delusions, calling himself Damir and feeling as though staff is out to harm him Memory and concentration: AOX3, grossly intact for the purposes of this session Judgment and insight:poor Assessment Bipolar 1 disorder, current episode manic with psychotic features Plan: -Patient continues to meet criteria for inpatient psychiatric admission for symptom stabilization and safety. Patient has not signed adult voluntary form and medication consent and was placed in patient's chart. -Medications: Continue to offer Zyprexa ODT 10 mg at bedtime for bipolar joya (patient has been refusing), trazodone 50 mg as needed at bedtime for sleep -When necessary Ativan and Haldol for agitation/aggression. -Labs: Reviewed -SW on board for discharge planning. Encouraged the patient to participate in milieu. Patient did not sign deferral, court scheduled for this Thursday
[2024-07-12 07:47] LABS: Glucose,Whole Blood 176 mg/dL (70-110)
--- NOTE | 2024-07-12 11:52 | P.PN ---
Progress Note - Text Progress Note Date: 07/12/24 Interval History: Patient was seen wandering the hallways and was directable and agreeable to sp eak with mortgage or loan underwriter in the [place]. Patient was antagonistic towards mortgage or loan underwriter, questioning mortgage or loan underwriter's decision making with diagnosing him with bipolar disorder. He states he wishes to have a different psychiatrist as he prefers telepsych and has reached out to Dr. Montiel. Patient was reminded of court tomorrow via Zoom however patient states he hates doing anything virtual. He states he has left voicemail messages for [facility]. He continues to display grandiose delusions. He continues to omit most medications including Zyprexa. Mental Status Exam: General Appearance: Patient appears to be stated age is alert, directable, and cooperative. Behavior: Patient is calmly standing without any agitated behavior. Antagonistic and guarded Speech: Patient's speech is fluent and nonpressured. Mood/Affect: Mood is "all right", affect is congruent and constricted. Suicidality/Homicidality: Patient denies having any suicidal or homicidal ideation intent or plan. Perceptions: Patient denies any visual hallucinations and denies any auditory hallucinations Though content/process: There is evidence of grandiose and persecutory delusions Memory and concentration: AOX3, grossly intact for the purposes of this session Judgment and insight: poor Assessment Bipolar 1 disorder, current episode manic with psychotic features Plan: -Patient continues to meet criteria for inpatient psychiatric admission for symptom stabilization and safety. Patient has not signed adult voluntary form and medication consent and was placed in patient's chart. -Medications: Offered Zyprexa ODT 10 mg at bedtime for bipolar joya (patient has been refusing), trazodone 50 mg as needed at bedtime for sleep -When necessary Ativan and Haldol for agitation/aggression. -Labs: Reviewed -SW on board for discharge planning. Encouraged the patient to participate in milieu. Patient did not sign deferral, court scheduled for tomorrow at 9:30 AM
[2024-07-13 07:48] LABS: Glucose,Whole Blood 157 mg/dL (70-110)
[2024-07-13] MEDS ORDERED: CARBAMIDE PEROXIDE 6.5% DROPS 15 ML BTL BOTH EARS PRN (10:37)
--- NOTE | 2024-07-13 11:18 | P.PN ---
Progress Note - Text Progress Note Date: 07/13/24 Interval History: Patient was seen in group and was directable and agreeable to speak with keno writer/runner in the [place]. He expresses issues with working with "crooked people" of [facility] as he wishes to work with [facility] and how he feels as though the court of appeals judge is working against him. He states he has not been using trazodone for sleep and he feels as if he only needs vitamin B12 for energy, continuously refusing any other psychotropic medications. Patient however has been appropriate on the unit, requiring no PRNs and attending groups. He states he will request a jury trial and that he also requested a second opinion and thus this delayed court to next week. He wishes to be off consistent carbs diet while here. He continues to refuse all medical and psychotropic medications other than as needed and allopurinol. Mental Status Exam: General Appearance: Patient appears to be stated age is alert, directable, and slightly cooperative. Behavior: Patient is calmly standing without any agitated behavior. Speech: Patient's speech is fluent and nonpressured. Mood/Affect: Mood is "all right", affect is congruent and constricted. Suicidality/Homicidality: Patient denies having any suicidal or homicidal ideation intent or plan. Perceptions: Patient denies any visual hallucinations and denies any auditory hallucinations Though content/process: There is grandiose and persecutory delusions Memory and concentration: AOX3, grossly intact for the purposes of this session Judgment and insight: poor Assessment Bipolar 1 disorder, current episode manic with psychotic features Plan: -Patient continues to meet criteria for inpatient psychiatric admission for symptom stabilization and safety. Patient has not signed adult voluntary form and medication consent and was placed in patient's chart. -Medications: Continue to offer Zyprexa ODT 10 mg at bedtime for bipolar joya (patient has been refusing), trazodone 50 mg as needed at bedtime for sleep -When necessary Ativan and Haldol for agitation/aggression. -Labs: Reviewed -SW on board for discharge planning. Encouraged the patient to participate in milieu. Patient did not defer, court scheduled for 07/20 as patient requested a second opinion
[2024-07-14] MEDS ORDERED: hydrOXYzine pamoate 25 MG CAP PO PRN (09:34)
[2024-07-14] MEDS ORDERED: hydrOXYzine HCL 50 MG/ML 1 ML VIAL IM PRN (09:34)
--- NOTE | 2024-07-14 11:03 | P.PN ---
Progress Note - Text Progress Note Date: 07/14/24 Interval History: Patient was seen wandering the hallways and was directable and agreeable to sp eak with specification writer in the [place]. Patient was upset with several complaints today and continue to display poor insight into his need for treatment. Patient received 2 as needed Ativan's yesterday for reported anxiety however patient made comments regarding using this medication to "get high" and thus this will be discontinued with hydroxyzine and replacement for anxiety. Patient states having athletes feet and he has been unable to get his medications for this. He expresses frustration with the medical doctor regarding not providing his gout medication despite several attempts of education regarding his kidney function limitations. He expresses issues with the diet here as he is on a consistent carb diet. He talked about switching attorneys as he does not feel like his current attorneys are working with him. Attempted to have yet another discussion with patient regarding treatment for his mental illness however patient was antagonistic, stating specification writer took a Hippocratic both to "do no harm" and that he will "take a shot when you take 1 as well". Still awaiting for court next week. Patient continues to refuse all medical and psychotropic medications other than allopurinol. Mental Status Exam: General Appearance: Patient appears to be stated age is alert, directable, and largely uncooperative. Behavior: Patient is calmly standing without any agitated behavior. Antagonisti c in conversation Speech: Patient's speech is fluent and nonpressured. Mood/Affect: Mood is improving mildly, affect is congruent and constricted. Suicidality/Homicidality: Patient denies having any suicidal or homicidal ideation intent or plan. Perceptions: Patient denies any visual hallucinations and denies any auditory hallucinations Though content/process: There is evidence of persecutory delusions Memory and concentration: AOX3, grossly intact for the purposes of this session Judgment and insight: Poor Assessment Bipolar 1 disorder, current episode manic with psychotic features Plan: -Patient continues to meet criteria for inpatient psychiatric admission for symptom stabilization and safety. Patient has not signed adult voluntary form and medication consent and was placed in patient's chart. -Medications: Continue to offer Zyprexa ODT 10 mg at bedtime for bipolar joya (note patient has been refusing), trazodone 50 mg as needed at bedtime for sleep -When necessary hydroxyzine and Haldol for agitation/aggression. -Labs: Reviewed -SW on board for discharge planning. Encouraged the patient to participate in milieu. Patient did not defer, court scheduled for 07/20 as patient requested second opinion
[2024-07-14 12:42] LABS: Glucose,Whole Blood 136 mg/dL (70-110)
--- NOTE | 2024-07-15 11:03 | P.PN ---
Progress Note - Text Progress Note Date: 07/15/24 Interval History: Patient was seen wandering the hallways and was directable and agreeable to sp eak with rfp writer in the [place]. Patient wrote a note to rfp writer stating antagonistic comments stating he will no longer work with rfp writer and calling rfp writer names such as cand w. Patient continues to display grandiosity, signing the letter "King Lamont". He continues to display poor insight, refusing all medications other than allopurinol even though patient has diabetes, dyslipidemia and hypertension. Patient seen in the [place]. He is notably upset since rfp writer discontinued Ativan and putting hydroxyzine on instead for anxiety. Patient still not amenable with starting psychotropic medications, calling rfp writer names and stating the Hippocratic oath. Still awaiting court next week. Mental Status Exam: General Appearance: Patient appears to be stated age is alert, and uncooperative. Behavior: Patient is calmly sitting without any agitated behavior. Antagonistic Speech: Patient's speech is fluent and nonpressured. Mood/Affect: Mood is "ok ", affect is congruent and labile Suicidality/Homicidality: Patient denies having any suicidal or homicidal ideation intent or plan. Perceptions: Patient denies any visual hallucinations and denies any auditory hallucinations Though content/process: There is evidence of grandiose and persecutory delusions Memory and concentration: AOX3, grossly intact for the purposes of this session Judgment and insight: poor Assessment Bipolar 1 disorder, current episode manic with psychotic features Cluster B traits Plan: -Patient continues to meet criteria for inpatient psychiatric admission for symptom stabilization and safety. Patient has not signed adult voluntary form and medication consent and was placed in patient's chart. -Medications: Continue to offer Zyprexa ODT 10 mg at bedtime for bipolar joya (patient has been refusing), trazodone 50 mg as needed at bedtime for sleep -When necessary hydroxyzine and Haldol for agitation/aggression. -Labs: Reviewed -SW on board for discharge planning. Encouraged the patient to participate in milieu. Patient did not defer, awaiting court next Friday 07/20 due to patient requesting second opinion
--- NOTE | 2024-07-16 15:27 | P.PN ---
Progress Note - Text Progress Note Date: 07/16/24 Interval history: Patient was seen wandering the hallways and was directable and agreeable to s peak with property underwriter. He calls himself "King Lamotn" and states that he is smarter than all the doctors here. He does not believe he needs any "psychoactive medications" and refuses to consider alternatives that this provider attempted to discuss with him. Patient expresses several persecutory delusions about the [employer], [employer], etc. He states that the only do not work for him are Ativan and marijuana. He says he is willing to take trazodone if he wants otherwise does not want to consider any other medications. He says he likes to do yoga and meditation in his room. He reports sleeping and eating well. At this time patient denies any suicidal or homicidal ideations intent or plan. Denies any Auditory or visual hallucinations. Patient has not been compliant with psychotropic meds. He has also not been refusing medications for DM, HTN, etc. Mental status exam: General Appearance: Patient appears to be stated age is alert, and uncooperative. Behavior: Patient is calmly sitting without any agitated behavior. Speech: Patient's speech is fluent and nonpressured. Mood/Affect: Mood is elevated, affect is congruent and labile Suicidality/Homicidality: Patient denies having any suicidal or homicidal ideation intent or plan. Perceptions: Patient denies any visual hallucinations and denies any auditory hallucinations Though content/process: Grandiose and persecutory delusions, tangential Memory and concentration: AOX3, grossly intact for the purposes of this session Judgment and insight: poor Assessment/Plan: Continue with current diagnosis. Patient continues to meet criteria for inpatient psychiatric admission for symptom stabilization and safety. Patient will be maintained on current psychotropic medication regimen. Monitor for medication compliance and for any psychotropic medication side effects. Will continue to monitor ongoing response to treatment. Encouraged participation in milieu. Awaiting court
[2024-07-17] MEDS: NYSTATIN 100,000UNIT/GM CREAM 30 GM TUBE TOPICAL SCH (09:35)
--- NOTE | 2024-07-17 13:37 | P.PN ---
Progress Note - Text Progress Note Date: 07/17/24 Interval history: Patient was seen wandering the hallways and was directable and not agreeable to speak with contract technical writer. He said "I don't want to talk. What's the point?" He was noted to have coloring on his cheeks and when asked about it, he said it is "war paint". He says he used a crayon to draw it. He continues to be grandiose and have poor insight. Per staff, no episodes of agitation. He is noted to make numerous delusional statements and at times has a word salad. At this time patient denies any suicidal or homicidal ideations intent or plan. Denies any Auditory or visual hallucinations. Patient has not been compliant with psychotropic meds. He has been refusing medications for DM, HTN, etc. Vital Signs Temp 98.2 F 07/16/24 09:04 Pulse 89 07/17/24 06:00 Resp 16 07/17/24 06:00 BP 139/84 07/17/24 06:00 Pulse Ox 97 07/15/24 06:00 FiO2 Mental status exam: General Appearance: Patient appears to be stated age is alert, and uncooperative. Behavior: Patient is calmly sitting without any agitated behavior. Speech: Patient's speech is fluent and nonpressured. Mood/Affect: Mood is elevated, affect is congruent and labile Suicidality/Homicidality: Patient denies having any suicidal or homicidal ideation intent or plan. Perceptions: Patient denies any visual hallucinations and denies any auditory hallucinations Though content/process: Grandiose and persecutory delusions, tangential Memory and concentration: AOX3, grossly intact for the purposes of this session Judgment and insight: poor Assessment/Plan: Continue with current diagnosis. Patient continues to meet criteria for inpatient psychiatric admission for symptom stabilization and safety. Patient will be maintained on current psychotropic medication regimen. Refusing meds. Monitor for medication compliance and for any psychotropic medication side effects. Will continue to monitor ongoing response to treatment. Encouraged participation in milieu. Awaiting court
--- NOTE | 2024-07-17 17:23 | P.EN ---
Nurse Eirka to call me r locate patient's legs for possible cellulitis. Patient refused to see me. Nurse lisa explained to the patient. He refused
--- NOTE | 2024-07-18 12:44 | P.PN ---
Progress Note - Text Progress Note Date: 07/18/24 Interval history: Patient was walking the hallway when asked to be interviewed in the covering provider office. He states that he does not now why he is here against his wall and reported that he came in voluntarily. When asked about the reason for this hospitalization he states that " Selvin Issa and Jessica Feng brought me here." He states that you "can blame Trump as well." He states that he has been following here in the unit, reported low depression and anxiety, denied any current suicidal, self-harm or homicidal thoughts or behavior. He states that he does not feel the need to take any medication and reported that he will only take smoke weed to help with his symptoms. He states that he tried different types of medication in the past and reported that Invega was giving him dyskinesia, Abilify worsened his diabetes, Thorazine made him like a zombie, Risperdal given breastmilk. He states that he is not willing to take Zyprexa and reported that he is feeling fine. The patient reported that he would like to have a court hearing and discuss his issues with the judge clerk. the patient was hyperverbal, having some bizarre behavior, he has paint on his face, and writing over has left forearm. His speech was soft, illogical and nonsensical. He admitted to good sleep and appetite. Denied any aggression or agitation. Mental Status Exam: General Appearance: Patient appears to be stated age is alert, he was calm, cooperative during the interview however keep refusing his medication. Behavior: Patient is calmly sitting without any agitated behavior. Antagonistic Speech: Patient's speech is fluent and fast verbally directable. Mood/Affect: Mood is "fine", affect is labile, and mood incongruent. Suicidality/Homicidality: Patient denies having any suicidal or homicidal ideation intent or plan. Perceptions: Patient denies any visual hallucinations and denies any auditory hallucinations Though content/process: There is evidence of grandiose and persecutory delusions, process is tangential, nonsensical and illogical Memory and concentration: AOX3, grossly intact for the purposes of this session Judgment and insight: poor Assessment Bipolar 1 disorder, current episode manic with psychotic features Cluster B traits Plan: -Patient continues to meet criteria for inpatient psychiatric admission for symptom stabilization and safety. Patient has not signed adult voluntary form and medication consent and was placed in patient's chart. -Medications: Continue to offer Zyprexa ODT 10 mg at bedtime for bipolar joya (patient has been refusing), trazodone 50 mg as needed at bedtime for sleep -When necessary hydroxyzine and Haldol for agitation/aggression. -Labs: Reviewed -SW on board for discharge planning. Encouraged the patient to participate in milieu. Patient did not defer, awaiting court next Friday 07/20 due to patient requesting second opinion.
--- NOTE | 2024-07-19 16:37 | P.PN ---
Progress Note - Text Progress Note Date: 07/19/24 Dictation was produced using [employer] dictation software. Please excuse any grammatical, word or spelling errors. Interval history: Patient states that he has agitated today, when asked about the reason, he states " I called the [employer], and they hang up the phone on me," states that "I wanted to report Irineo Carrillo and Selvin Issa for their criminal acts." States that his sleep last night was interrupted and did not sleep well, reported that if he can get some melatonin to help with sleep. He denied any current depression, suicidal, homicidal thoughts or behavior, intention or plan. Reported that his anxiety is increased since [employer] did not answer him. He states that he is not taking any other medication. When educated about his blood pressure and diabetes medication, the patient put his finger in his mouth and told the bond underwriter " my blood sugar is 124." Patient was educated on how important for him to take his medication however he continued to deny and reported that he is waiting for the court hearing. He denied any aggression or agitation. Speech continue to be illogical and nonsensical, he has an inappropriate laughter at times. Mental Status Exam: General Appearance: Patient appears to be stated age is alert, he was calm, cooperative during the interview however keep refusing his medication. Behavior: Patient is calmly sitting without any agitated behavior. Antagonistic Speech: Patient's speech is fluent and fast verbally directable. Mood/Affect: Mood is "agitated", affect is labile, and mood incongruent. Suicidality/Homicidality: Patient denies having any suicidal or homicidal ideation intent or plan. Perceptions: Patient denies any visual hallucinations and denies any auditory hallucinations Though content/process: There is evidence of grandiose and persecutory delusions, process is tangential, nonsensical and illogical Memory and concentration: AOX3, grossly intact for the purposes of this session Judgment and insight: poor Assessment Bipolar 1 disorder, current episode manic with psychotic features Cluster B traits Plan: -Patient continues to meet criteria for inpatient psychiatric admission for symptom stabilization and safety. Patient has not signed adult voluntary form and medication consent and was placed in patient's chart. -Medications: Continue to offer Zyprexa ODT 10 mg at bedtime for bipolar joya (patient has been refusing), trazodone 50 mg as needed at bedtime for sleep -When necessary hydroxyzine and Haldol for agitation/aggression. -Start melatonin 5 mg p.o. at bedtime -Labs: Reviewed -SW on board for discharge planning. Encouraged the patient to participate in milieu. Patient did not defer, awaiting court next Friday 07/20 due to patient requesting second opinion.
[2024-07-19] MEDS: MELATONIN 5 MG TABLET PO SCH (21:34)
--- NOTE | 2024-07-20 12:24 | P.PN ---
Progress Note - Text Progress Note Date: 07/20/24 Dictation was produced using [employer] dictation software. Please excuse any grammatical, word or spelling errors. Interval history: Patient was in his room, laying in mattress on the floor. Patient states that he is feeling fine today, states that he thought he will have a court hearing today again expressed his feeling to the anesthesiologist/physician about "Gerardo and Selvin Issa," it is that he still trying to get in contact with the [employer] however they never answer his call. States that otherwise he is feeling fine, reported that he does not consider any medication at this time and reported that he can handle his mental and physical health by himself. Denied any current suicidal, self-harm or homicidal thoughts or behavior, denied any auditory or visual hallucination. States that he was interrupted last night, reported that he took melatonin which was kind of helpful. He reported that he is eating well and getting along well with everyone in the unit. Patient continued to have an inappropriate laughter at times. He denied any physical complaint. he has no other concerns at this time. Mental Status Exam: General Appearance: Patient appears to be stated age is alert, he was calm, cooperative during the interview however keep refusing his medication. Behavior: Patient is calmly sitting without any agitated behavior. Antagonistic Speech: Patient's speech is fluent and fast verbally directable. Mood/Affect: Mood is "I am fine", affect is labile, and mood incongruent. Suicidality/Homicidality: Patient denies having any suicidal or homicidal ideation intent or plan. Perceptions: Patient denies any visual hallucinations and denies any auditory hallucinations, he continued to have delusional and disorganized thoughts and behavior Though content/process: There is evidence of grandiose and persecutory delusions, process is tangential, nonsensical and illogical Memory and concentration: AOX3, grossly intact for the purposes of this session Judgment and insight: poor Assessment Bipolar 1 disorder, current episode manic with psychotic features Cluster B traits Plan: -Patient continues to meet criteria for inpatient psychiatric admission for symptom stabilization and safety. Patient has not signed adult voluntary form and medication consent and was placed in patient's chart. -Medications: Continue to offer Zyprexa ODT 10 mg at bedtime for bipolar joya (patient has been refusing), trazodone 50 mg as needed at bedtime for sleep -When necessary hydroxyzine and Haldol for agitation/aggression. -Continue melatonin 5 mg p.o. at bedtime -Labs: Reviewed -SW on board for discharge planning. Encouraged the patient to participate in milieu. Patient did not defer, awaiting court next Friday 07/20 due to patient requesting second opinion.
--- NOTE | 2024-07-21 15:54 | P.PN ---
Progress Note - Text Progress Note Date: 07/21/24 Dictation was produced using [employer] dictation software. Please excuse any grammatical, word or spelling errors. Interval history: Patient was walking the hallway when asked to be interviewed in his room. He states that lying well aside from "people running the government want to take him down as he knows about Gerardo and Jose Martin," he states that "Jose Martin faked her citizenship, and she is not [place]". States that he has been trying to call the [employer] could not get in contact with them. He states that he feels safe in the unit, denied any current suicidal, homicidal thoughts or behavior. He remains disorganized with bizarre behavior. Received a call from [facility] that patient has been trying to call them and requesting some information. Staff discussed that with the patient and patient was redirected and reported that he is not going to call them again. Reported good sleep and appetite. Reported that he does not consider any medication at this time. Reported that he is upset since his court date was delayed. Pt was encouraged to take his medication however he continued to decline. He has no other concerns at this time. Mental Status Exam: General Appearance: Patient appears to be stated age is alert, he was calm, cooperative during the interview however keep refusing his medication. Behavior: Patient is calmly sitting without any agitated behavior. Antagonistic Speech: Patient's speech is fluent and fast verbally directable. Mood/Affect: Mood is "fine, upset about the court", affect is labile, and mood incongruent. Suicidality/Homicidality: Patient denies having any suicidal or homicidal ideation intent or plan. Perceptions: Patient denies any visual hallucinations and denies any auditory hallucinations, he continued to have delusional and disorganized thoughts and behavior Though content/process: There is evidence of grandiose and persecutory delusions, process is tangential, nonsensical and illogical Memory and concentration: AOX3, grossly intact for the purposes of this session Judgment and insight: poor Assessment Bipolar 1 disorder, current episode manic with psychotic features Cluster B traits Plan: -Patient continues to meet criteria for inpatient psychiatric admission for symptom stabilization and safety. Patient has not signed adult voluntary form and medication consent and was placed in patient's chart. -Medications: Continue to offer Zyprexa ODT 10 mg at bedtime for bipolar joya (patient has been refusing), trazodone 50 mg as needed at bedtime for sleep -When necessary hydroxyzine and Haldol for agitation/aggression. -Continue melatonin 5 mg p.o. at bedtime -Labs: Reviewed -SW on board for discharge planning. Encouraged the patient to participate in milieu. Patient did not defer, awaiting court on 08/10/24 due to patient requesting second opinion.
--- NOTE | 2024-07-22 13:40 | P.PN ---
Progress Note - Text Progress Note Date: 07/22/24 Dictation was produced using [employer] dictation software. Please excuse any grammatical, word or spelling errors. Interval history: Patient was in his room when asked to be interviewed, he states that " I do not feel I need to be here" when asked about not taking his medication he states " I will take all the cannabis when I leave." The patient was laughing inappropriately and having bizarre behavior and thoughts. He was talking about how corrupted the government is and reported that " Gerardo did not win the election." Denied any current suicidal or homicidal thoughts or behavior, auditory or visual hallucination however he appears to be paranoid and delusional. He reported that he did not sleep well last night, it is reported 3 hours of sleep overnight, admitted to good appetite. He continue to refuse all of his medication. Awaiting court hearing. Pt was encouraged to take his m edication however he continued to decline. He has no other concerns at this time. Mental Status Exam: General Appearance: Patient appears to be stated age is alert, he was calm, cooperative during the interview however keep refusing his medication. Behavior: Patient is calmly sitting without any agitated behavior. Antagonistic. Patient has an inappropriate laugh Speech: Patient's speech is fluent and fast verbally directable. Can be loud at the time Mood/Affect: Mood is "fine", affect is labile, and mood incongruent. Suicidality/Homicidality: Patient denies having any suicidal or homicidal ideation intent or plan. Perceptions: Patient denies any visual hallucinations and denies any auditory hallucinations, he continued to have delusional and disorganized thoughts and behavior Though content/process: There is evidence of grandiose and persecutory delusions, process is tangential, nonsensical and illogical Memory and concentration: AOX3, grossly intact for the purposes of this session Judgment and insight: poor Assessment Bipolar 1 disorder, current episode manic with psychotic features Cluster B traits Plan: -Patient continues to meet criteria for inpatient psychiatric admission for symptom stabilization and safety. Patient has not signed adult voluntary form and medication consent and was placed in patient's chart. -Medications: Continue to offer Zyprexa ODT 10 mg at bedtime for bipolar joya (patient has been refusing), trazodone 50 mg as needed at bedtime for sleep -When necessary hydroxyzine and Haldol for agitation/aggression. -Continue melatonin 5 mg p.o. at bedtime -Labs: Reviewed -SW on board for discharge planning. Encouraged the patient to participate in milieu. Patient did not defer, awaiting court on 08/10/24 due to patient requesting second opinion.
--- NOTE | 2024-07-23 12:01 | P.PN ---
Progress Note - Text Progress Note Date: 07/23/24 Interval history: Patient was seen wandering the hallways earlier, went to his room. Banquet Captain at tempted to speak with patient in his room however patient claims that "go away and fuck you" and then proceeds to say "negative ghost rider" and did not cooperate with evaluation today. Mental status exam: General Appearance: Patient appears to be overweight, stated age is alert, uncooperative, poor hygiene Behavior: Unpleasant, difficult to redirect and uncooperative Speech: Patient's speech is fluent and nonpressured. Demanding Mood/Affect: Unable to assess Suicidality/Homicidality: Unable to assess Perceptions: Unable to assess Though content/process: Demanding, concrete. Multiple delusions, grandiosity Memory and concentration: Unable to assess Judgment and insight: Chronically poor Assessment/Plan: Continue with current diagnosis. Patient continues to meet criteria for inpatient psychiatric admission for symptom stabilization and safety. Patient will be maintained on current psychotropic medication regimen. Monitor for medication compliance and for any psychotropic medication side effects. Will continue to monitor ongoing response to treatment. Encouraged participation in milieu.
--- NOTE | 2024-07-24 11:31 | P.PN ---
Progress Note - Text Progress Note Date: 07/24/24 Interval history: Patient was seen wandering the hallways today, he was approached by ad writer. Patient was asked to speak today, he stated "are you going to twist my words again". He continues to be fairly argumentative defiant with ad writer. Swore at him a few times, proceeded to walk away. He states that "read my letters". He has been filling out several letters and leaving them on the floors and under writers door. Did not cooperate today with evaluation Mental status exam: General Appearance: Patient appears to be overweight, stated age is alert, uncooperative, poor hygiene Behavior: Unpleasant, difficult to redirect and uncooperative, argumentative Speech: Patient's speech is fluent and nonpressured. Demanding argumentative Mood/Affect: Unable to assess Suicidality/Homicidality: Unable to assess Perceptions: Unable to assess Though content/process: Demanding, concrete. Multiple delusions, grandiosity Memory and concentration: Unable to assess Judgment and insight: Chronically poor Assessment/Plan: Continue with current diagnosis. Patient continues to meet criteria for inpatient psychiatric admission for symptom stabilization and safety. Patient will be maintained on current psychotropic medication regimen. Monitor for medication compliance and for any psychotropic medication side effects. Will continue to monitor ongoing response to treatment. Encouraged participation in milieu.
[2024-07-24] MEDS: NEOMYCIN-BACITRACIN-POLY OINT 14 GM TUBE TOPICAL PRN (16:54)
--- NOTE | 2024-07-25 13:57 | P.PN ---
Progress Note - Text Progress Note Date: 07/25/24 Interval History: Patient was seen wandering the hallways and was directable and agreeable to sp eak with telegraphic typewriter repairer in the [place]. Patient continues to be largely uncooperative, displaying delusional thoughts, irritable. Patient expresses multiple complaints, talking about the "crooked system" and how he plans on suing. Patient is upset due to not having many group therapy here despite his resistance on being here for mental health treatment. Patient displays flight of ideas, stating the police "shot up my dad" but then randomly stating next that he will not take medications since telegraphic typewriter repairer will not take them as well. Patient seen walking around with signs stating "[employer]", listing several staff members names stating "E. coli poisoning is a b". continues to be noncompliant with several psychotropic and medical medications despite psychoeducation. Mental Status Exam: General Appearance: Patient appears to be stated age is alert, and uncooperative. Patient is overweight Behavior: Patient is calmly standing without any agitated behavior. Speech: Patient's speech is fluent and nonpressured. Mood/Affect: Mood is "fine", affect is congruent and labile. Suicidality/Homicidality: Patient denies having any suicidal or homicidal ideation intent or plan. Perceptions: Patient denies any visual hallucinations and denies any auditory hallucinations Though content/process: There is evidence of disorganized thoughts, flight of ideas Memory and concentration: AOX3, grossly intact for the purposes of this session Judgment and insight: poor Assessment Bipolar 1 disorder, current episode manic with psychotic features Cluster B traits Plan: -Patient continues to meet criteria for inpatient psychiatric admission for symptom stabilization and safety. Patient has not signed adult voluntary form and medication consent and was placed in patient's chart. -Medications: Continue to offer Zyprexa ODT 10 mg at bedtime for bipolar joya (note patient has been refusing), trazodone 50 mg as needed at bedtime for sleep -When necessary hydroxyzine and Haldol for agitation/aggression. -Labs: Reviewed -SW on board for discharge planning. Encouraged the patient to participate in milieu. Patient did not defer, awaiting court on 08/10/2024
--- NOTE | 2024-07-26 10:28 | P.PN ---
Progress Note - Text Progress Note Date: 07/26/24 Interval History: Patient was seen wandering the hallways and was directable and agreeable to sp andriy with sign writer hand in the [place]. Patient was seen wearing a cardboard sign around his neck talking about "psych doctors pushing pills". He refused to speak to the independent hand rounder yesterday for second opinion despite him requesting one. He continues to refuse several medications, both medical and psychotropic. Awaiting court August 10, 2024. Mental Status Exam: General Appearance: Patient appears to be stated age is alert, directable, and cooperative. Patient is overweight Behavior: Patient is calmly standing without any agitated behavior. Antagonistic Speech: Patient's speech is fluent and nonpressured. Mood/Affect: Mood is "fine", affect is congruent and constricted. Suicidality/Homicidality: Patient denies having any suicidal or homicidal ideation intent or plan. Perceptions: Patient denies any visual hallucinations and denies any auditory hallucinations Though content/process: There is evidence of disorganized thoughts, persecutory delusions Memory and concentration: AOX3, grossly intact for the purposes of this session Judgment and insight: poor Assessment Bipolar 1 disorder, current episode manic with psychotic features Cluster B traits Plan: -Patient continues to meet criteria for inpatient psychiatric admission for symptom stabilization and safety. Patient has not signed adult voluntary form and medication consent and was placed in patient's chart. -Medications: Continue to offer Zyprexa ODT 10 mg at bedtime for bipolar joya (note patient has been refusing), trazodone 50 mg as needed at bedtime for sleep, melatonin 5 mg at bedtime for sleep -When necessary hydroxyzine and Haldol for agitation/aggression. -Labs: Reviewed -SW on board for discharge planning. Encouraged the patient to participate in milieu. Awaiting court on 08/10/2024
[2024-07-27 08:12] LABS: Glucose,Whole Blood 138 mg/dL (70-110)
--- NOTE | 2024-07-27 09:07 | P.PN ---
Progress Note - Text Progress Note Date: 07/27/24 Interval History: Patient was seen brushing his teeth in his room and was directable and agreeable to speak with brief writer in the room. Patient notably has several signs posted on his door with statements such as "this dog and pony show and find any more" and "Damir Lamont in the flash". Patient continues to display delusional and disorganized thoughts, talking about fetuses that are in [place]. He states being upset about having to spend the holidays in the hospital however he anticipates the court hearing not being for several months as this occurred before. Continues to be noncompliant with several psychotropic and medical medications. Mental Status Exam: General Appearance: Patient appears to be stated age is alert, directable, and cooperative. Patient is overweight Behavior: Patient is calmly seated without any agitated behavior. Speech: Patient's speech is fluent and nonpressured. Mood/Affect: Mood is "all right", affect is congruent and constricted. Suicidality/Homicidality: Patient denies having any suicidal or homicidal ideation intent or plan. Perceptions: Patient denies any visual hallucinations and denies any auditory hallucinations Though content/process: There is evidence of disorganized and delusional thoughts, patient expressed statements such as fetuses being born and are at [place], grandiose delusions calling himself King Lamont Memory and concentration: AOX3, grossly intact for the purposes of this session Judgment and insight: poor Assessment Bipolar 1 disorder, current episode manic with psychotic features Cluster B traits Plan: -Patient continues to meet criteria for inpatient psychiatric admission for symptom stabilization and safety. Patient has not signed adult voluntary form and medication consent and was placed in patient's chart. -Medications: Continue to offer Zyprexa ODT 10 mg at bedtime for bipolar joya (note patient has been refusing), trazodone 50 mg as needed at bedtime for sleep, melatonin 5 mg at bedtime for sleep -When necessary hydroxyzine and Haldol for agitation/aggression. -Labs: Reviewed -SW on board for discharge planning. Encouraged the patient to participate in milieu. Awaiting court scheduled for 08/10/2024
--- NOTE | 2024-07-28 11:02 | P.PN ---
Progress Note - Text Progress Note Date: 07/28/24 Interval History: Patient was seen wandering the hallways and was directable and agreeable to sp eak with business writer in the [facility]. Patient continues to require frequent redirection for bizarre behaviors displayed on the unit, continues to be nonadherent with several psychotropic and medical medications including medications for hypertension or diabetes. Patient continues to display poor insight, challenging business writer over prior diagnosis of bipolar disorder. Patient did apologize to business writer for calling business writer "the C word" however he is still displaying paranoid and delusional thoughts talking about the "[place] falsifying my paperwork". Still awaiting for court on 08/10/2024. Mental Status Exam: General Appearance: Patient appears to be stated age is alert, directable, and cooperative. He is overweight Behavior: Patient is calmly standing without any agitated behavior. Speech: Patient's speech is fluent and nonpressured. Mood/Affect: Mood is "fine", affect is congruent and constricted. Suicidality/Homicidality: Patient denies having any suicidal or homicidal ideation intent or plan. Perceptions: Patient denies any visual hallucinations and denies any auditory hallucinations Though content/process: There is evidence of persecutory and grandiose delusions Memory and concentration: AOX3, grossly intact for the purposes of this session Judgment and insight: poor Assessment Bipolar 1 disorder, current episode manic with psychotic features Cluster B traits Plan: -Patient continues to meet criteria for inpatient psychiatric admission for symptom stabilization and safety. Patient has not signed adult voluntary form and medication consent and was placed in patient's chart. -Medications: Continue to offer Zyprexa ODT 10 mg at bedtime for bipolar joya (note patient has been refusing), trazodone 50 mg as needed at bedtime and melatonin 5 mg at bedtime for insomnia -When necessary hydroxyzine and Haldol for agitation/aggression. -Labs: Reviewed -SW on board for discharge planning. Encouraged the patient to participate in milieu. Awaiting court scheduled for 08/10/2024
--- NOTE | 2024-07-29 10:29 | P.PN ---
Progress Note - Text Progress Note Date: 07/29/24 Interval History: Patient was seen laying in his room on the floor and was directable and agreea ble to speak with remote mortgage underwriter in the room. He expresses frustration with being in the hospital, stating there have been limited groups and nothing going on. He reports racing thoughts however has not amenable with starting a medication to help with this. He continues to refuse most medical and psychotropic medications. He continues to display persecutory delusions, fixated on the "crooked court system" and the typos on the paperwork that makes it invalid. Patient declined shave order, stating that the blades were to dull however he was encouraged to attend to his ADLs. Mental Status Exam: General Appearance: Patient appears to be stated age is alert, directable, and cooperative. He is overweight, less antagonistic today Behavior: Patient is calmly laying on the floor without any agitated behavior. Speech: Patient's speech is fluent and nonpressured. Mood/Affect: Mood is "upset", affect is congruent and constricted. Suicidality/Homicidality: Patient denies having any suicidal or homicidal ideation intent or plan. Perceptions: Patient denies any visual hallucinations and denies any auditory hallucinations Though content/process: There is evidence of persecutory delusions Memory and concentration: AOX3, grossly intact for the purposes of this session Judgment and insight: poor Assessment Bipolar 1 disorder, current episode manic with psychotic features Cluster B traits Plan: -Patient continues to meet criteria for inpatient psychiatric admission for symptom stabilization and safety. Patient has not signed adult voluntary form and medication consent and was placed in patient's chart. -Medications: Continue to offer Zyprexa ODT 10 mg at bedtime for bipolar joya (note patient has been refusing), trazodone 50 mg as needed at bedtime and melatonin 5 mg at bedtime for insomnia -When necessary hydroxyzine and Haldol for agitation/aggression. -Labs: Reviewed -SW on board for discharge planning. Encouraged the patient to participate in milieu. Awaiting court scheduled for 08/10/2024
[2024-07-29 14:11] VITALS: BMI 51.5
--- NOTE | 2024-07-30 08:39 | P.PN ---
Subjective Progress Note Date: 07/30/24 Principal diagnosis: bipolar manic subjective: Patient is rambling about how he doesn't need medications and that this is just all legal issue and he's got to be the system but that his court- appointed strategic planning consultant in doesn't know the constitution and he does not acknowledge any need for medications and cannot stand topic long enough to him how he is doing. He denies suicidality or homicidality he came readily and wasagreeable to speak with internal communications writer in the office. He expresses frustration with being in the hospital, stating there have been limited groups and nothing going on. He reports racing thoughts however is not amenable with starting a medication to help with this. He continues to refuse most medical and psychotropic medications. He continues to display persecutory delusions, fixated on the "crooked court system" and the typos on the paperwork that makes it invalid. Mental Status Exam:pressured speech flight of ideas and grandiosity he was carrying a plaque that said his goal in life was to get more more more equity just this and respect and abolish homelessness abolish pretty much all the problems in the world General Appearance: Patient appears to be stated age is alert, directable, and cooperative. He is overweight, less antagonistic today Behavior: Patient walks a little unsteadily Speech: Patient's speech is pressured and loose Mood/Affect: Mood is "upset", affect is congruent and constricted. Suicidality/Homicidality: Patient denies having any suicidal or homicidal ideation intent or plan. Perceptions: Patient denies any visual hallucinations and denies any auditory hallucinations Though content/process: There is evidence of persecutory delusions Memory and concentration: AOX3, grossly intact for the purposes of this session Judgment and insight: poor Assessment Bipolar 1 disorder, current episode manic with psychotic features Cluster B traits Plan: -Patient continues to meet criteria for inpatient psychiatric admission for s ymptom stabilization and safety. Patient has not signed adult voluntary form and medication consent and was placed in patient's chart. -Medications: Continue to offer Zyprexa ODT 10 mg at bedtime for bipolar joya (note patient has been refusing), trazodone 50 mg as needed at bedtime and melatonin 5 mg at bedtime for insomnia -When necessary hydroxyzine and Haldol for agitation/aggression. -Labs: Reviewed -SW on board for discharge planning. Encouraged the patient to participate in milieu. Awaiting court scheduled for 08/10/2024 Objective - Vital Signs Vital signs: Vital Signs Temp 97.8 F 07/29/24 03:49 Pulse 126 H 07/29/24 03:49 Resp 16 07/29/24 03:49 BP 119/86 07/29/24 03:49 Pulse Ox 97 07/29/24 03:49 FiO2 Intake & Output 07/29/24 07/30/24 07/30/24 18:59 06:59 18:59 Weight 163.1 kg - Labs CBC & Chem 7: 06/30/24 10:49 06/30/24 10:49
--- NOTE | 2024-07-31 09:13 | P.PN ---
Subjective Progress Note Date: 07/31/24 Principal diagnosis: bipolar manic subjective: Patient is rambling on multitude's of subjects all revolving around a corrupt legal systems politics and hospital leadership. He was rambling about some clashes action suit against hospitals including [facility] and doctors were prescribing way more medicine because they're in bed with the pharmaceuticals. He denies suicidality or homicidality. He is still refusing medications and he says he wants somebody to establish that he can get his legal rights and his gun collection back so he can go hunting again. He says as long as he is diagnosed with psychiatric illness he can't have his guns. He came readily and was agreeable to speak with senior grant writer in the office. He continues to refuse most medical and psychotropic medications. He continues to display persecutory delusions, fixated on the "crooked court system".. Mental Status Exam:pressured speech flight of ideas and grandiosity his gait was normal self-care adequate but minimal the scratches on his legs appeared to be healing General Appearance: Patient appears to be stated age is alert, directable, and cooperative. He is overweight, less antagonistic today Behavior: Patient walks a little unsteadily Speech: Patient's speech is pressured and loose Mood/Affect: Mood is "upset", affect is congruent and constricted. Suicidality/Homicidality: Patient denies having any suicidal or homicidal ideation intent or plan. Perceptions: Patient denies any visual hallucinations and denies any auditory hallucinations Though content/process: There is evidence of persecutory delusions Memory and concentration: AOX3, grossly intact for the purposes of this session Judgment and insight: poor Assessment Bipolar 1 disorder, current episode manic with psychotic features Cluster B traits Plan: -Patient continues to meet criteria for inpatient psychiatric admission for symptom stabilization and safety. Patient has not signed adult voluntary form and medication consent and was placed in patient's chart. -Medications: Continue to offer Zyprexa ODT 10 mg at bedtime for bipolar joya (note patient has been refusing), trazodone 50 mg as needed at bedtime and mathieu atonin 5 mg at bedtime for insomnia -When necessary hydroxyzine and Haldol for agitation/aggression. -Labs: Reviewed -SW on board for discharge planning. Encouraged the patient to participate in milieu. encourage him to take his medicine as the fastest way to get his life back together. He says he knows when he goes to court that the court is in bed with the hospital on the psychiatrist currently found there campaigns but he still wants to stand up for himself. Awaiting court scheduled for 08/10/2024 Objective - Vital Signs Vital signs: Vital Signs Temp 97.7 F 07/31/24 06:43 Pulse 104 H 07/31/24 06:43 Resp 16 07/31/24 06:43 BP 123/81 07/31/24 06:43 Pulse Ox 97 07/31/24 06:43 FiO2 - Labs CBC & Chem 7: 06/30/24 10:49 06/30/24 10:49
[2024-08-01] MEDS: ARIPiprazole 5 MG TAB PO ONE (10:30)
--- NOTE | 2024-08-01 10:50 | P.PN ---
Progress Note - Text Progress Note Date: 08/01/24 Interval History: Patient was seen in the [facility] and was directable and agreeable to speak with television writer in the [facility]. Notably irritable today and he continues to display delusional thoughts. He states he wishes to be transferred to get his needs taken care of. He exhibits poor insight stating he does not have mental illness and that he does not need to take any medications. He reports suicidal ideation stating he will use a gown if needed if he has to stay here another day. Patient was reminded of the upcoming court and his refusal to take medications. Patient also has been calling the police and thus phone restrictions have been placed to which patient became upset, verbally agitated however he was agreeable to taking Abilify 5 mg as needed. He continues to decline several psychotropic and medical medications. Mental Status Exam: General Appearance: Patient appears to be stated age is alert, and uncooperative. Behavior: Patient is antagonistic, verbally aggressive Speech: Patient's speech is fluent and nonpressured. Mood/Affect: Mood is "upset", affect is congruent and labile. Suicidality/Homicidality: Patient suicidal ideations with a plan however denies any homicidal ideations Perceptions: Patient denies any visual hallucinations and denies any auditory hallucinations Though content/process: There is evidence of delusional thoughts, disorganization Memory and concentration: AOX3, grossly intact for the purposes of this session Judgment and insight: poor Assessment Bipolar 1 disorder, current episode manic with psychotic features Cluster B traits Plan: -Patient continues to meet criteria for inpatient psychiatric admission for symptom stabilization and safety. Patient has not signed adult voluntary form and medication consent and was placed in patient's chart. -Medications: Change medications from Zyprexa to Abilify 5 mg daily (note that patient has been refusing psychotropic medications), continue trazodone 50 mg as needed at bedtime and melatonin 5 mg at bedtime for insomnia -When necessary hydroxyzine and Haldol for agitation/aggression. -Labs: Reviewed -SW on board for discharge planning. Encouraged the patient to participate in milieu. Awaiting court scheduled for 08/10/2024
[2024-08-01] MEDS: MAGNESIUM HYDROXIDE 2,400 MG/30 ML CUP PO PRN (16:11)
[2024-08-02] MEDS: ARIPiprazole 5 MG TAB PO SCH (08:11)
--- NOTE | 2024-08-02 14:16 | P.PN ---
Progress Note - Text Interval History: Patient was seen walking the hallways and was directable and agreeable to speak with typewriter assembly and parts inspector in the office. He shared his frustration about feeling that the hospital is not "sterile". He also went on to share that there is a "conspiracy" regarding receiving psychiatric care from "corrupt doctors" who only prescribe medication for the sake of receiving payments for those medicines. He plans to request a jury trial for his mental health court hearing and recognizes this will likely prolong his stay, but simultaneously expressed frustration about the duration of his hospital stay. He did acknowledge having difficulty sleeping last night; recommended he give Trazodone another try. When asked about his decision to decline Abilify today, he shared that he only took the medication to make the other psychiatrist happy. At this time patient denies any suicidal ideation though stated "I was yesterday." When asked about homicidal ideation he initially said "I plead the fifth" though after further inquiry stated he did not want to harm anyone, referring to a Biblical commandment. Patient denies any auditory, visual hallucinations and denies any paranoia or delusions. Patient continues to be non-compliant with meds. Patient slept approximately 3 hours overnight. Mental Status Exam: General Appearance: Patient appears to be stated age is alert, directable, and cooperative. Behavior: Patient is calmly seated without any agitated behavior. Speech: Patient's speech is fluent and non-pressured. Mood/Affect: Mood is "agitated", affect is congruent and constricted. Suicidality/Homicidality: Patient denies having any suicidal or homicidal ideation, intent, or plan. Perceptions: Patient denies any visual hallucinations and denies any auditory hallucinations Though content/process: There is delusional thought content and thought process is tangential though redirectable. Memory and concentration: AOX3, grossly intact for the purposes of this session Judgment and insight: Poor ASSESSMENT: Bipolar 1 disorder, current episode manic with psychotic features Cluster B traits Plan: -Patient continues to meet criteria for inpatient psychiatric admission for symptom stabilization and safety. Patient has not signed adult voluntary form or medication consent; forms were placed in patient's chart. -Medications: - Continue Abilify 5 mg daily (note that patient continues to refuse psychotropic medications) - Continue trazodone 50 mg as needed at bedtime (encouraged patient to take this tonight given poor sleep) - Continue melatonin 5 mg at bedtime for insomnia -When necessary hydroxyzine and Haldol for agitation/aggression. -Labs: No new labs -SW on board for discharge planning. Encouraged the patient to participate in milieu. Awaiting court scheduled for 08/10/2024.
--- NOTE | 2024-08-03 13:50 | P.PN ---
Progress Note - Text Interval History: Patient was seen walking the hallways and was directable and agreeable to speak with comic writer in the office. He described his mood as "indifferent" and shared his frustration with seeing patients who had previously left the hospital come back during the time that he has been here. He explained that one of the reasons he is having a hard time sleeping is related to not having his CPAP, but he has a get the machine back because he was not using it due to not having power in the [place] where he had been living following an eviction. He shared that he was evicted because the manager net was "in bed with the property management supervisor" and refused to acknowledge that he had been paying his portion of the rent on time. Per review of nursing notes he slept only 45 minutes last night. When asked about this patient said that the trazodone "had the opposite effect" and caused him to be alert and not sleep. He then went on to say that he needs a more quiet space to sleep because other patients are making noise and he expressed frustration with the door being open during the night to do patient safety checks. He outright denied suicidal and homicidal ideation, intent, and plan today. Patient denies any auditory, visual hallucinations and denies any paranoia or delusions. Patient continues to be non-compliant with meds. He was heard outside near the nurses station banging on the doors and a show her frustration related to his current phone restrictions. Mental Status Exam: General Appearance: Patient appears to be stated age is alert, directable, and cooperative. Behavior: Patient is calmly seated without any agitated behavior. Speech: Patient's speech is fluent and rapid though non-pressured. Talkative. Mood/Affect: Mood is "indifferent", affect is congruent and constricted. Suicidality/Homicidality: Patient denies having any suicidal or homicidal ideation, intent, or plan. Perceptions: Patient denies any visual hallucinations and denies any auditory hallucinations Though content/process: There is delusional thought content and thought process is tangential and circumstantial though redirectable. Memory and concentration: AOX3, grossly intact for the purposes of this session Judgment and insight: Poor ASSESSMENT: Bipolar 1 disorder, current episode manic with psychotic features Cluster B traits Plan: -Patient continues to meet criteria for inpatient psychiatric admission for symptom stabilization and safety. Patient has not signed adult voluntary form or medication consent; forms were placed in patient's chart. -Medications: - Continue Abilify 5 mg daily (note that patient continues to refuse psychotropic medications) - Continue trazodone 50 mg as needed at bedtime - Continue melatonin 5 mg at bedtime for insomnia -Working with nursing to consult Podiatry re: toenail care -Phone restrictions were reassessed today patient will be allowed 1 phone call per day; we will continue to reevaluate on a daily basis -When necessary hydroxyzine and Haldol for agitation/aggression. -Labs: No new labs -SW on board for discharge planning. Encouraged the patient to participate in milieu. Awaiting court scheduled for 08/10/2024.
--- NOTE | 2024-08-04 11:49 | P.PN ---
Progress Note - Text Interval History: Patient was seen walking the hallways and was directable and agreeable to speak with check writer in the office. He described his mood as "agitated" this morning, affect calmed as conversation went on. He shared a sign he created and was carrying around the unit that had scripture references to "justice." Additionally, at the start of the conversation he handed over a letter that shared he only wants to see a certain Psychiatrist as he believes there is a conspiracy involving the others. Many of the themes of his conversation today were related to his thoughts on immorality and incompetence. He reports having slept better last night than the night prior; nursing records reflect 3.5 hours of interrupted sleep. Appetite is stable. He continues to be frustrated about other patients returning to the hospital in the time since he's been here. At this time he denies suicidal ideation, intent, or plan. He also denies homicidal ideation, intent, or plan. He denies experiencing auditory or visual hallucinations. We discussed the return of his phone privileges as he was able to abide by phone usage rules yesterday. He agreed to notify staff of any emergency and not making calls to emergency services, which had been occurring before. He also agreed to not make threatening calls to anyone. He was agreeable to abiding by phone usage rules moving forward. Mental Status Exam: General Appearance: Patient appears to be stated age is alert, directable, and cooperative. Behavior: Patient is calmly seated without any agitated behavior. Speech: Patient's speech is fluent and rapid though non-pressured. Talkative. Mood/Affect: Mood is "agitated", affect is congruent and constricted. More calm and euthymic as conversation progressed. Suicidality/Homicidality: Patient denies having any suicidal or homicidal ideation, intent, or plan. Perceptions: Patient denies any visual hallucinations and denies any auditory hallucinations Though content/process: There is delusional thought content and thought process is tangential and circumstantial though redirectable. Memory and concentration: AOX3, grossly intact for the purposes of this session Judgment and insight: Poor ASSESSMENT: Bipolar 1 disorder, current episode manic with psychotic features Cluster B traits Plan: -Patient continues to meet criteria for inpatient psychiatric admission for symptom stabilization and safety. Patient has not signed adult voluntary form or medication consent; forms were placed in patient's chart. -Medications: - Continue Abilify 5 mg daily (note that patient continues to refuse psychotropic medications) - Continue trazodone 50 mg as needed at bedtime - Continue melatonin 5 mg at bedtime for insomnia -Working with nursing to consult Podiatry re: toenail care -Phone restrictions were reassessed today and will be returned to normal phone privileges as long as patient does not make threatening phone calls or inapp ropriate calls to emergency services. -When necessary hydroxyzine and Haldol for agitation/aggression. -Labs: No new labs -SW on board for discharge planning. Encouraged the patient to participate in milieu. Awaiting court scheduled for 08/10/2024.
[2024-08-04 23:42] LABS: Glucose,Whole Blood 111 mg/dL (70-110)
--- NOTE | 2024-08-05 13:27 | P.PN ---
Progress Note - Text Interval History: Patient was seen walking the hallways and was directable and agreeable to speak with marketing writer in the office. He described his mood today is "all over the place". He shared that he has a "ethical dilemma" related to his concern about a prior conspiracy to fraudulently obtain the rent payments for individuals who resided at the complex where he had been living. He notes that he phoned a judicial complaint lying and was advised to call the state police to make a police report. We discussed that it is not okay for him to call the state police from the hospital and that he would need to follow-up on these concerns after discharge. Many of the themes of today's conversation were around various conspiracies and other concerns he has about situations that may be taking place. He continues to want access to his medical records; we discussed that this occurs through a formal process involving the medical records department. He did sleep 3 hours overnight. At 1 point the patient was seen conversing with another patient and subsequently gave the patient medical advice and guidance regarding their treatment which resulted in confusion for the other patient. Mr. Yeboah was advised to please not give medical advice to other patients and became very irate and yelled several expletives during this conversation. At this time he denies suicidal ideation, intent, or plan. He also denies homicidal ideation, intent, or plan. He denies experiencing auditory or visual hallucinations. Mental Status Exam: General Appearance: Patient appears to be stated age is alert, directable, and intermittently cooperative. Behavior: Patient is calmly seated without any agitated behavior. Later more irate and pointing fingers during subsequent conversation. Speech: Patient's speech is fluent and rapid though non-pressured. Talkative. Mood/Affect: Mood is "all over the place", affect is congruent and constricted. Labile and irritable at various points. Suicidality/Homicidality: Patient denies having any suicidal or homicidal ideation, intent, or plan. Perceptions: Patient denies any visual hallucinations and denies any auditory hallucinations Though content/process: There is delusional thought content and thought process is tangential and circumstantial though redirectable. Memory and concentration: AOX3, grossly intact for the purposes of this session Judgment and insight: Poor ASSESSMENT: Bipolar 1 disorder, current episode manic with psychotic features Cluster B traits Plan: -Patient continues to meet criteria for inpatient psychiatric admission for symptom stabilization and safety. Patient has not signed adult voluntary form or medication consent; forms were placed in patient's chart. -Medications: - Continue Abilify 5 mg daily (note that patient continues to refuse psychotropic medications) - Continue trazodone 50 mg as needed at bedtime - Continue melatonin 5 mg at bedtime for insomnia -Podiatry visited today to care for patient's toenails -Phone restrictions were reassessed on 08/04/24 and was returned to normal phone privileges as long as patient does not make threatening phone calls or inappropriate calls to emergency services. -When necessary hydroxyzine and Haldol for agitation/aggression. -Labs: No new labs -SW on board for discharge planning. Encouraged the patient to participate in milieu. Awaiting court scheduled for 08/10/2024.
--- NOTE | 2024-08-06 12:10 | P.PN ---
Progress Note - Text Progress Note Date: 08/06/24 Dictation was produced using [employer] dictation software. Please excuse any grammatical, word or spelling errors. Interval history: Patient was seen in the hallway and was directable and agreeable to speak with the sign writer letterer or painter in the office for psychiatric follow-up. He states that his mood is positive today, reported that he is a little depressed and anxious since he has been here in the hospital. He states that his sleep was interrupted since the unit was loud. He admitted to good appetite. He denied any current suicidal or homicidal thoughts, intention or plan, he states that he stopped calling the [employer], and reported that he still want to advocate for world peace. He states that he does not want to take any medication aside from cannabis. He states he is getting a long well with everyone in the unit. The patient continued to have tangential, illogical and nonsensical thought process. Continue to refuse psychotropic medication, lack insight into his current mental illness. Mental status exam: General Appearance: Patient appears to be stated age is alert, directable, and intermittently cooperative. Behavior: Patient is calmly seated without any agitated behavior. Speech: Patient's speech is fluent and rapid though non-pressured. Talkative. Mood/Affect: Mood is "all over the place", affect is congruent and constricted. Labile and irritable at various points. Suicidality/Homicidality: Patient denies having any suicidal or homicidal ideation, intent, or plan. Perceptions: Patient denies any visual hallucinations and denies any auditory hallucinations Though content/process: There is delusional thought content and thought process is tangential and circumstantial though redirectable. Memory and concentration: AOX3, grossly intact for the purposes of this session Judgment and insight: Poor Impression: Bipolar 1 disorder, current episode manic with psychotic features Cluster B traits Assessment/Plan: Continue with current diagnosis. Patient continues to meet criteria for inpatient psychiatric admission for symptom stabilization and safety. Patient will be maintained on current psychotropic medication regimen. He has been refusing his psychotropic medication, awaiting court hearing. Will monitor for medication compliance and for any psychotropic medication side effects. Will continue to monitor ongoing response to treatment. Encouraged participation in milieu.
--- NOTE | 2024-08-07 11:57 | P.PN ---
Progress Note - Text Progress Note Date: 08/07/24 Dictation was produced using [employer] dictation software. Please excuse any grammatical, word or spelling errors. Interval history: Patient was seen in the hallway and was directable and agreeable to speak with the sql report writer in the office for psychiatric follow-up. States that he is tired of being here, he states that his mood is "upset", states that he was talking to [facility] crises to get his medical records and reported that "they are falsifying my records." He claims that he slept well last night, however it is reported as 2 hours last night. Reported that he is depressed for being here. Denied any current suicidal thoughts, intention or plan, however he reported that he has some homicidal thoughts toward "Dr. Velazco," denied any intention or plan. He was redirected about his behaviors toward the nursing staff, and reported that he apologized for his behaviors. He states that he wrote a letter to apologize. He was rambling about " Irineo Carrillo and, Margi Philippe." Thought processes continue to be illogical and nonsensical, tangential with time, fixated on political issues, he continued to be paranoid about being in the hospital, making homicidal statements however later on reported he does not mean it. He continues to refuse medication and reported he will only consider cannabis. Per nursing report: patient wrote sexually inappropriate letter to one of the nursing staff, has also wrote sexually inappropriate things about them with crayon on gil of room [address]. Patient continues to refer to them as "sexy, Goddess, beautiful". This morning the patient was able to write another letter stating that he apologized to the nursing staff for the " sexual harassment" and reported that he would like to be transferred to a different facility. Mental status exam: General Appearance: Patient appears to be stated age is alert, directable, and intermittently cooperative. Behavior: Patient is calmly seated without any agitated behavior. Speech: Patient's speech is fluent and rapid though non-pressured. Talkative. Mood/Affect: Mood is "upset", affect is congruent and constricted. Labile and irritable at various points. Suicidality/Homicidality: Patient denies having any suicidal or homicidal ideation, intent, or plan. Perceptions: Patient denies any visual hallucinations and denies any auditory hallucinations Though content/process: There is delusional thought content and thought process is tangential and circumstantial though redirectable. Memory and concentration: AOX3, grossly intact for the purposes of this session Judgment and insight: Poor Impression: Bipolar 1 disorder, current episode manic with psychotic features Cluster B traits Assessment/Plan: Continue with current diagnosis. Patient continues to meet criteria for inpatient psychiatric admission for symptom stabilization and safety. Patient will be maintained on current psychotropic medication regimen. Monitor for medication compliance and for any psychotropic medication side effects. Will continue to monitor ongoing response to treatment. Encouraged participation in milieu.
--- NOTE | 2024-08-08 14:16 | P.PN ---
Progress Note - Text Progress Note Date: 08/08/24 Interval history: Patient was seen in the hallway and was directable and agreeable to speak with the science writer in the office for psychiatric follow-up. States that he is tired of being here, insight poor, states he was involuntary petitioned. He begins to ramble about social security benefits. He states he is feeling "very, very angry" because he wanted to order sandals from [employer]. He says he got bit by bugs, has bug bites on both shins and is prescribed Vistaril for itching and an ointment. He claims he slept well last night but in his chart is it recorded he slept only one hour last night, only slept one hour. He denies any current suicidal thoughts, intention or plan. He continues to report he has some homicidal thoughts toward "Dr. Velazco," because "last time I was here he ordered an injection". He denies any specific plan or intent, because of the "commandment, though shall not kill". Thought process is nonsensical flight of ideas, rambling about government and has negative opinions about mental health care. He has been refusing most of his medical and all of his psychiatric meds, including his BP meds, diabetes meds, renal meds and is also refusing his blood glucose checks. His insight and judgment remain poor. He claims "I'm not diabetic, there's no reason to check it." He continues to refuse blood sugar checks. Thought processes continue to be illogical and nonsensical, tangential with time, fixated on political issues, he continued to be paranoid about being in the hospital, making homicidal statements however later on reported he does not mean it. He continues to refuse his meds, and claims the meds "cause the symptoms". He claims "all the chemicals from .... the [place] War are going to go away once he takes over the world, and there will be more psychologists and less psychiatrists..." because he believes "talk therapy works better than drug therapy." Mental status exam: General Appearance: Patient appears to be stated age, obese, dressed in clean casual attire. Behavior: Patient appears restless, carrying his papers, noncompliant with medications. Speech: Patient's speech is fluent and rapid, slightly pressured. Talkative. Mood/Affect: Mood is "irritated" and "angry", affect is congruent and constricted. Suicidality/Homicidality: Patient denies having any suicidal ideation, intent, or plan. He reports homicidal ideation towards Dr. Velazco, but denies any specific plan or intent, states the "commandments forbid it, though shall not kill." Perceptions: Patient denies any visual hallucinations and denies any auditory hallucinations Though content/process: There is delusional thought content and thought process is tangential and circumstantial though redirectable. Memory and concentration: AOX3, grossly intact for the purposes of this session Judgment and insight: Poor Impression: Bipolar 1 disorder, current episode manic with psychotic features Cluster B traits Assessment/Plan: Continue with current diagnosis. Patient continues to meet criteria for inpatient psychiatric admission for symptom stabilization and safety. Patient will be maintained on current psychotropic medication regimen. Patient is currently refusing most of his scheduled medications. Continue to encourage compliance with medications and Monitor for medication compliance and for any psychotropic medication side effects. Will continue to monitor ongoing response to treatment. Encouraged participation in milieu. He is awaiting his court hearing on 08/10/24.
--- NOTE | 2024-08-09 14:58 | P.PN ---
Progress Note - Text Progress Note Date: 08/09/24 Interval History: Patient was seen wandering the hallways and declined speaking to singer songwriter stating "I do not want to speak with you". Patient noted to be walking around in his underwear with markings on his face. He was reminded of court tomorrow. Staff noted that patient has been expressing delusional thoughts, stating letters to his storage unit and was placed on phone and mail restrictions for this. He continues to refuse several psychotropic and medical medications. Mental Status Exam: General Appearance: Patient appears to be stated age is alert but uncooperative. Behavior: Patient is calmly standing without any agitated behavior. Speech: Patient's speech is fluent and nonpressured. Mood/Affect: Mood is "I do not want to speak to you", affect is congruent and constricted. Suicidality/Homicidality: Patient denies having any suicidal or homicidal ideation intent or plan. Perceptions: Patient denies any visual hallucinations and denies any auditory hallucinations Though content/process: There is evidence of delusional thoughts Memory and concentration: AOX3, grossly intact for the purposes of this session Judgment and insight: poor Assessment Bipolar 1 disorder, current episode manic with psychotic features Cluster B traits Plan: -Patient continues to meet criteria for inpatient psychiatric admission for symptom stabilization and safety. Patient has not signed adult voluntary form and medication consent and was placed in patient's chart. -Medications: Continue to offer Abilify 5 mg daily for bipolar disorder (note patient has been refusing), trazodone 50 mg at bedtime for insomnia, melatonin 5 mg at bedtime for insomnia -When necessary hydroxyzine and Haldol for agitation/aggression. -Labs: Reviewed -SW on board for discharge planning. Encouraged the patient to participate in milieu. Court scheduled for tomorrow at 9:30 AM
--- NOTE | 2024-08-10 13:33 | P.PN ---
Progress Note - Text Progress Note Date: 08/10/24 Interval History: Patient was seen wandering the hallways. Patient continues to refuse both psy chotropic and medical medications including insulin. Patient and advertising copy writer both attended court today however patient requested a jury trial and so court was adjourned for 2 more weeks so that he can receive a second independent evaluation from psychiatrist. Note during the court hearing, patient expressed a laundry list of complaints with cognitive impairment evident as patient was unable to keep on track with the numbering. Laborer [place] did mention that patient was unable to represent himself given the severity of the accusations of his mental illness and patient's winter intern expressed concerns with patient leaving violent voicemail messages to him. Patient seen on the unit expressing aggressive statements. Mental Status Exam: General Appearance: Patient appears to be stated age is alert, but largely uncooperative. Behavior: Patient is calmly seated without any agitated behavior. Speech: Patient's speech is fluent and nonpressured talkative. Mood/Affect: Mood is "upset", affect is congruent and constricted. Suicidality/Homicidality: Patient denies having any suicidal or homicidal ideation intent or plan. Perceptions: Patient denies any visual hallucinations and denies any auditory hallucinations Though content/process: There is evidence of persecutory delusions Memory and concentration: AOX3, grossly intact for the purposes of this session Judgment and insight: poor Assessment Bipolar 1 disorder, current episode manic with psychotic features Cluster B traits Plan: -Patient continues to meet criteria for inpatient psychiatric admission for symptom stabilization and safety. Patient has not signed adult voluntary form and medication consent and was placed in patient's chart. -Medications: Continue to offer Abilify 5 mg daily for bipolar disorder (note patient has been refusing), trazodone 50 mg at bedtime for insomnia, melatonin 5 mg at bedtime for insomnia -When necessary hydroxyzine and Haldol for agitation/aggression. -Labs: Reviewed -SW on board for discharge planning. Encouraged the patient to participate in milieu. Court adjourned for another 2 weeks as patient requested a second independent evaluation and jury trial
--- NOTE | 2024-08-11 12:58 | P.PN ---
Progress Note - Text Progress Note Date: 08/11/24 Interval History: Patient was seen wandering the hallways. He continues to refuse several medical medications and Abilify, displaying delusional thoughts and poor insight into his need for treatment. Patient expressed during goal settings that his goal of the day was to antagonize engineering writer. Patient continues to write letters to engineering writer, stating engineering writer is as racist as the KKK for keeping him in the hospital and giving him medications. Patient continues to be fixated on the court system, expressing persecutory delusions. Mental Status Exam: General Appearance: Patient appears to be stated age is alert, but uncooperative. Behavior: Patient seen standing in the sharpe Speech: Patient's speech is fluent and nonpressured. Mood/Affect: Mood is irritable, affect is congruent and constricted. Suicidality/Homicidality: Patient denies having any suicidal or homicidal ideation intent or plan. Perceptions: Patient denies any visual hallucinations and denies any auditory hallucinations Though content/process: There is evidence of delusional thoughts Memory and concentration: grossly intact for the purposes of this session Judgment and insight: Poor Assessment Bipolar 1 disorder, current episode manic with psychotic features Cluster B traits Plan: -Patient continues to meet criteria for inpatient psychiatric admission for symptom stabilization and safety. Patient has not signed adult voluntary form and medication consent and was placed in patient's chart. -Medications: Continue to offer Abilify 5 mg daily for bipolar disorder (note patient has been refusing), trazodone 50 mg at bedtime for insomnia, melatonin 5 mg at bedtime for insomnia -When necessary hydroxyzine and Haldol for agitation/aggression. -Labs: Reviewed -SW on board for discharge planning. Encouraged the patient to participate in milieu. Awaiting court in 2 weeks as patient requested jury trial which inclu anamaria a second independent evaluation by psychiatrist
--- NOTE | 2024-08-12 11:47 | P.PN ---
Progress Note - Text Progress Note Date: 08/12/24 Interval History: Patient was seen wandering the hallways. Patient continues to display nadege miller, expressing to staff how he he has plans to transform this hospital and writing a letter to automotive service writer which was signed "from Britney Jiang". She continues to display persecutory delusions which were expressed in the letter, stating automotive service writer is infringing on constitutional rights and need medical license revoked. Patient continues to express aggressive language, displaying poor insight. Continues to refuse several medical medications and Abilify. Awaiting court in 2 weeks. Mental Status Exam: General Appearance: Patient appears to be stated age is alert, uncooperative. Behavior: Patient seen pacing the sharpe Speech: Patient's speech is fluent and nonpressured. Mood/Affect: Mood is irritable, affect is congruent and constricted. Suicidality/Homicidality: Patient denies having any suicidal or homicidal ideation intent or plan. Perceptions: Patient denies any visual hallucinations and denies any auditory hallucinations Though content/process: There is evidence of both grandiosity and persecutory delusions Memory and concentration: AOX3, grossly intact for the purposes of this session Judgment and insight: Poor Assessment Bipolar 1 disorder, current episode manic with psychotic features Cluster B traits Plan: -Patient continues to meet criteria for inpatient psychiatric admission for symptom stabilization and safety. Patient has not signed adult voluntary form and medication consent and was placed in patient's chart. -Medications: Continue to offer Abilify 5 mg daily for bipolar disorder (note patient has been refusing), trazodone 50 mg at bedtime for insomnia, melatonin 5 mg at bedtime for insomnia -When necessary hydroxyzine and Haldol for agitation/aggression. -Labs: Reviewed -SW on board for discharge planning. Encouraged the patient to participate in milieu. Awaiting court for 2 weeks as patient requested jury trial, will receive a second independent evaluation by psychiatrist
[2024-08-12] MEDS: LORazepam 2 MG/ML INJ IM STA (12:18)
[2024-08-12] MEDS: HALOPERIDOL LACTATE 5 MG/ML 1 ML VIAL IM STA (12:26)
[2024-08-12] MEDS ORDERED: haloperidoL 5 MG TAB PO PRN (13:29)
[2024-08-12] MEDS ORDERED: HALOPERIDOL LACTATE 5 MG/ML 1 ML VIAL IM PRN (13:30)
--- NOTE | 2024-08-13 16:37 | P.PN ---
Progress Note - Text Progress Note Date: 08/13/24 Dictation was produced using [employer] dictation software. Please excuse any grammatical, word or spelling errors. Interval history: Patient was seen in the hallway and was directable and agreeable to speak with the account underwriter in the day room for psychiatric follow-up. The pt states that he is feeling sad today about still being here, reported that he had a chance to speak was his pump stitcher yesterday and reported that he was upset and he cut the papers and throw it in his face. Reported that he feels a little bit anxious and depressed about still being in the hospital. Denied any current suicidal, self- harm or homicidal thoughts or behavior, denied any auditory or visual hallucination. The pt continue to display grandiose behavior, illogical and nonsensical thought process. He continue to refuse all of his psychotropic medication as well as his other medication, continued to have poor insight into his current mental illness. He is awaiting court hearing in 2 weeks. Mental status exam: General Appearance: Patient appears to be stated age is alert, uncooperative. Behavior: Patient seen pacing the sharpe, can be loud at time Speech: Patient's speech is fluent and nonpressured. Mood/Affect: Mood is irritable, affect is congruent and constricted. Suicidality/Homicidality: Patient denies having any suicidal or homicidal ideation intent or plan. Perceptions: Patient denies any visual hallucinations and denies any auditory hallucinations Though content/process: There is evidence of both grandiosity and persecutory delusions Memory and concentration: AOX3, grossly intact for the purposes of this session Judgment and insight: Poor Assessment Bipolar 1 disorder, current episode manic with psychotic features Cluster B traits Assessment/Plan: Continue with current diagnosis. Patient continues to meet criteria for inpatient psychiatric admission for symptom stabilization and safety. Patient will be maintained on current psychotropic medication regimen. Monitor for medication compliance and for any psychotropic medication side effects. Will continue to monitor ongoing response to treatment. Patient has been refusing all of his medication including psychotropics, he is awaiting court hearing in 2 weeks. Encouraged participation in milieu.
--- NOTE | 2024-08-14 13:17 | P.PN ---
Progress Note - Text Progress Note Date: 08/14/24 Dictation was produced using [employer] dictation software. Please excuse any grammatical, word or spelling errors. Interval history: Patient was seen in the hallway and was directable and agreeable to speak with the business writer for psychiatric follow-up. The patient reported that he is not feeling well since he still being in the hospital, reported that his nephrologist and the doctors are corrupted. Reported that he will be seeing the nuclear fuels research engineer soon and reported that he is not excited about it since he knows the nuclear fuels research engineer is corrupted as well. He reported mild to moderate depression and anxiety mainly related to his current situation and being in the hospital. He denied any current suicidal, self-harm or homicidal thoughts or behavior, reported that he has been hearing the voice of God and patient was religiously preoccupied. He continue to display grandiose behavior, his thought processes continue to be illogical and nonsensical. He has no insight into his current mental illness. He continues to refuse all of his medication. Mental status exam: General Appearance: Patient appears to be stated age is alert, uncooperative. Behavior: Patient seen pacing the sharpe, can be loud at time Speech: Patient's speech is fluent and nonpressured. Mood/Affect: Mood is irritable, affect is congruent and constricted. Suicidality/Homicidality: Patient denies having any suicidal or homicidal ideation intent or plan. Perceptions: Patient denies any visual hallucinations and denies any auditory hallucinations, however he reported that he has been talking to God and listening to God. Though content/process: There is evidence of both grandiosity and persecutory delusions Memory and concentration: AOX3, grossly intact for the purposes of this session Judgment and insight: Poor Assessment Bipolar 1 disorder, current episode manic with psychotic features Cluster B traits Assessment/Plan: Continue with current diagnosis. Patient continues to meet criteria for inpatient psychiatric admission for symptom stabilization and safety. Patient will be maintained on current psychotropic medication regimen. Monitor for medication compliance and for any psychotropic medication side effects. Will continue to monitor ongoing response to treatment. Patient has been refusing all of his medication including psychotropics, he is awaiting court hearing in 2 weeks. Encouraged participation in milieu.
[2024-08-15 07:15] VITALS: RESP 16
--- NOTE | 2024-08-15 13:23 | P.PN ---
Progress Note - Text Progress Note Date: 08/15/24 Interval History: Patient was seen today in group. He continues to refuse all psychotropic medi cations and several medical medications. Awaiting court as patient requested jury trial however patient reportedly ripped up his jury trial paperwork and requested a new generation engineer despite the food editor stating he is unable to represent himself. He has not required any as needed medications thus far today. Patient requested access to his medical records however given his ongoing antagonistic and verbally aggressive statements and letters made to bond writer and other staff members in addition to delusional thoughts expressed, this does not appear appropriate at this time as it will likely further escalate these behaviors and further damage to the already fragile doctor-patient relationship especially while we wait several months for jury trial. Mental Status Exam: General Appearance: Patient appears to be stated age is alert, uncooperative Behavior: Patient seen sitting in group Speech: Patient's speech is fluent and nonpressured. Mood/Affect: Mood is irritable, affect is congruent and irritable constricted.ity/Homicidality: Patient denies having any suicidal or homicidal ideation intent or plan. Perceptions: Patient denies any visual hallucinations and denies any auditory hallucinations Though content/process: There is evidence of grandiose and persecutory delusions Memory and concentration: AOX3, grossly intact for the purposes of this session Judgment and insight: poor Assessment Polar 1 disorder, current episode manic with psychotic features Cluster B traits Plan: -Patient continues to meet criteria for inpatient psychiatric admission for symptom stabilization and safety. Patient has not signed adult voluntary form and medication consent and was placed in patient's chart. -Medications: Continue to offer Abilify 5 mg daily bipolar disorder (patient has been refusing this medication) trazodone 50 mg at bedtime for insomnia, melatonin 5 mg at bedtime for insomnia -When necessary hydroxyzine and Haldol for agitation/aggression. -Labs: Reviewed -SW on board for discharge planning. Encouraged the patient to participate in milieu. Awaiting court scheduled for next week as patient requested jury trial and will receive a second independent evaluation in the interim
[2024-08-15 17:37] LABS: Glucose,Whole Blood 111 mg/dL (70-110)
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
[2024-08-17] MEDS: ATORVASTATIN 10 MG TAB PO SCH (08:32)
[2024-08-17 08:35] VITALS: TEMP 97.6
--- NOTE | 2024-08-17 11:42 | P.PN ---
Progress Note - Text Progress Note Date: 08/17/24 Interval History: Patient was seen wandering the hallways and was directable and agreeable to sp andriy with real estate underwriter in the office. Patient took Abilify this morning and did not require as needed Ativan for sleep last night. He reports broken sleep overnight however reports sleeping roughly 6 hours. He wishes to see his PCP to get another sleep study so that he can get another CPAP machine as he reports previous good sleep with this. Patient was goal oriented today. He states driving himself to the hospital and thus he can drive himself back once discharged tomorrow. Patient has been tending to his ADLs, going to groups. At this time patient denies any suicidal or homicidal ideations, intent or plan. Patient denies any auditory, visual hallucinations. Patient denies any side effects from the medications and has been compliant with psychotropic medications. Mental Status Exam: General Appearance: Patient appears to be stated age is alert, directable, and cooperative. Patient has good hygiene and grooming Behavior: Patient is calmly seated without any agitated behavior. Speech: Patient's speech is fluent and nonpressured. Mood/Affect: Mood is improving mildly, affect is congruent and reactive, bright. Suicidality/Homicidality: Patient denies having any suicidal or homicidal ideation intent or plan. Perceptions: Patient denies any visual hallucinations and denies any auditory hallucinations Though content/process: There were no overt delusions expressed today, logical thought Memory and concentration: AOX3, grossly intact for the purposes of this session Judgment and insight: Improving mildly Assessment Bipolar 1 disorder, current episode manic with psychotic features Cluster B traits Plan: -Patient continues to meet criteria for inpatient psychiatric admission for symptom stabilization and safety. Patient has not signed adult voluntary form and medication consent and was placed in patient's chart. -Medications: Continue Abilify 5 mg daily for bipolar disorder, trazodone 50 mg as needed at bedtime for insomnia, melatonin 5 mg at bedtime for insomnia, A tivan 1 mg as needed at bedtime for insomnia -When necessary hydroxyzine and Haldol for agitation/aggression. -Labs: Reviewed -SW on board for discharge planning. Encouraged the patient to participate in milieu. Court adjourned due to patient requesting jury trial, this can be done on an outpatient basis. Anticipate discharge back home tomorrow
[2024-08-17] MEDS: LORazepam 1 MG TAB PO PRN (21:55)
[2024-08-18 08:06] VITALS: BP 134/82; PULSE 106
--- NOTE | 2024-08-18 13:32 | P.DS ---
Providers Date of admission: 06/30/24 01:50 Expected date of discharge: 08/18/24 Attending physician: Susana Cedeño MD Consults: 06/30/24 01:53 Consult Physician Routine Consulting Provider: Tong Martínez Consult Reason/Comments: H & P Do you want consulting provider notified?: Yes, Notify in am Primary care physician: Thuan Reynoso - Discharge Diagnosis(es) (1) Bipolar disorder, current episode manic severe with psychotic features Status: Acute Priority: High (2) Cluster B personality disorder Status: Acute Priority: Medium Hospital Course: Admission HPI: Admission note was completed by typewriter repairer "Patient presented to the hospital with mental health concerns. EPS evaluation revealed, "Patient brought self into ER after attempting to fill out a police report and was directed to our ER. Patient believes "Dariel Garcia is hacking my accounts". Patient is open with [facility] but states he requested a new therapist and has no appointments scheduled. Patient admits to insomnia, not sleeping for 1+ weeks. Patient appears disheveled, malodorous but is cooperative with typewriter repairer. Patient denies SI, no previous attempts. Patient states "I am homicidal towards Irineo Carrillo and Selvin Maegan". Patient does not have a specific plan but states "Gerardo is a rapist, sinful, committed insurance fraud and set up the 04/13 terrorist attacks". Patient denies hallucinations but states "I have visions, I have visions that Irineo Carrillo when in office we will going to Civil War III". Patient states he has not been able to sleep since he sent a letter to President Maegan and hasn't heard back. Patient is paranoid, with tangential speech. Patient admits to decrease in appetite, poor impulse control, poor insight and poor focus. Patient denies access to guns, weapons and states he does not have a support system. Patient states "I've been driving up and down trying to calm myself about the cabinet that Gerardo will bring in, [place] Musk and him will have a dictatorship". Patient unsure what medications he takes as they come to him in a blister pack but does state he is compliant." Patient seen and evaluated on the unit and was agreeable with speaking to typewriter repairer in office. He states writing a letter to Selvin Issa due to his concerns with starting world war III however did not receive a response. He believes the election was read by Dariel Valentin and Dayton gruber and that they somehow hacked into his account. He states attempting to file a police report to press charges however was diverted to the ED. He reports issues with sleep and previously was prescribed CPAP for obstructive sleep apnea however has not used this for quite a while. He reports racing thoughts, grandiosity, stating he wants to start a business and go to law school. He denies any appetite changes, energy changes or anhedonia. He does report homicidal thoughts specifically towards Biden and Trump in addition to auditory hallucinations described as hearing his father's voice. Patient displayed tangential thought process with delusions described as the police shooting his father at the home however stating he saw his father in the [facility] recently. Patient denies any suicidal ideations intent or plan. At this time patient denies any visual hallucinations. Patient admits to using no substances. Patient states he only needs trazodone so that he can get his sleep together and does not wish to be on any other psychotropic medications. Discussed with patient his voluntary status and that this may need to be changed to involuntary if he has not willing to take meds however he was then agreeable with starting Zyprexa." Hospital course: Upon admission to the unit patient was admitted involuntarily on a petition and certificate and a second certificate was completed and faxed to the courts. Patient had several court dates adjourned given his request for a second independent evaluation and then a jury trial. Patient has a pending court case for mental health treatment with an unknown date given his request for jury trial. Patient had an extremely lengthy stay at this hospital however overall got along well with other patients on the unit. Although he refused several medical and psychotropic medications, he required minimal as needed medications for behaviors, specifically only requiring 1 Haldol 10 mg/Ativan 2 mg for verbally aggressive escalating behaviors however requiring frequent redirection. Patient was more verbally aggressive during his time on the unit however towards the end of his stay, was apologetic and more cooperative. He was overall nonadherent with psychotropic medications however ended up agreeing to being started on Abilify 5 mg daily, trazodone 50 mg as needed at bedtime, melatonin 5 mg at bedtime and Ativan 1 mg as needed at bedtime for insomnia. He appeared to tolerate this medication well, denying any adverse effects. Patient spoke of his stressors and engaged in therapy both group and individual. Patient was also seen by medical team for history and physical exam. Patient was fixated on being started on colchicine for gout however given his kidney impairment this was not started. Patient refused several diabetes medications stating he does not have diabetes despite A1c being elevated. Throughout the course of the hospitalization patient gradually improved with regards to mood, anxiety, sleep and returned back to their baseline level of functioning. On the day of discharge patient denied any suicidal or homicidal ideations intent or plan denied any auditory or visual hallucinations. The patient denied any access to guns or weapons. Patient did display grandiose delusions however less intense than previous encounters. He states he wishes to follow-up with his PCP in order to obtain a CPAP machine as he has sleep apnea. More logical thought process noted. Patient does not have a significant history of substance abuse and was counseled on abstaining from all substances including alcohol and marijuana. Patient was also counseled on the medications and need for regular compliance and was encouraged to follow-up with their outpatient appointment for mental health and also for primary care. Patient lives alone and will be discharged back to his apartment. He will follow-up with [facility]. Mental status exam: General Appearance: Patient appears to be stated age is alert, pleasant, and cooperative. Patient is in no acute distress and has improved hygiene and grooming Behavior: Patient is calmly seated without any agitated behavior. Speech: Patient's speech is fluent and nonpressured. Mood/Affect: Patient reports their mood is "good", affect is congruent and euthymic to bright. Suicidality/Homicidality: Patient denies having any suicidal or homicidal ideation intent or plan. Perceptions: Patient denies any auditory or visual hallucinations. Though content/process: There is evidence of grandiose delusions, less intense and fixation than previous encounters. Illogical thoughts noted. Memory and concentration: AOX3, grossly intact for the purposes of this session. Can spell "WORLD" backwards correctly. Judgment and insight: Chronically poor, however has improved with guarded prognosis Impression: Bipolar 1 disorder, current episode manic with psychotic features Cluster B traits Plan: -Continue with discharge today as patient has improved and stabilized psychiatrically and is not currently an imminent threat to themself and/or others. Patient will remain at chronically elevated risk for harm to self and/or others due to their impulsivity and substance abuse. -Continue medications: Continue Abilify 5 mg daily, melatonin 5 mg at bedtime for insomnia -Patient was counseled on the need for medication compliance and appropriate follow-up at mental health and also primary care for medical issues. Patient verbalized understanding and agreed. -Social work to help coordinate patients discharge today. also to ensure safe home environment that guns/weapons are either removed from the home or locked away. Social work also to arrange for patients follow up appointments with [facility] for psychiatric care along with follow up with primary care provider. -Patient counseled on abstaining from recreational drugs and marijuana and alcohol. Was informed/educated on the adverse effects on their physical and mental health. Patient verbally agreed and understood. -Patient was instructed to return to the hospital or seek immediate medical care if their psychiatric or medical symptoms do worsen or reoccur. -Awaiting jury trial for mental health court Abnormal Labs 06/30/24 06/30/24 06/30/24 00:28 03:22 07:59 WBC Sodium Carbon Dioxide Creatinine Glucose POC Glucose (mg/dL) 300 H 248 H Hemoglobin A1c AST ALT Alkaline Phosphatase Triglycerides VLDL Cholesterol, Calc HDL Cholesterol Urine Protein 3+ H Urine Glucose (UA) 4+ H Urine Blood Moderate H Urine RBC 18 H Calcium Oxalate Crystal Rare H Hyaline Casts 14 H Urine Mucus Rare H Urine Yeast (Budding) Rare H 06/30/24 06/30/24 06/30/24 10:49 10:49 10:49 WBC 10.9 H Sodium 135 L Carbon Dioxide 20 L Creatinine 1.67 H Glucose 258 H POC Glucose (mg/dL) Hemoglobin A1c 8.7 H AST 78 H ALT 74 H Alkaline Phosphatase 141 H Triglycerides 351.00 H VLDL Cholesterol, Calc 70.20 H HDL Cholesterol 30.50 L Urine Protein Urine Glucose (UA) Urine Blood Urine RBC Calcium Oxalate Crystal Hyaline Casts Urine Mucus Urine Yeast (Budding) 06/30/24 06/30/24 06/30/24 13:08 17:37 20:10 WBC Sodium Carbon Dioxide Creatinine Glucose POC Glucose (mg/dL) 225 H 217 H 158 H Hemoglobin A1c AST ALT Alkaline Phosphatase Triglycerides VLDL Cholesterol, Calc HDL Cholesterol Urine Protein Urine Glucose (UA) Urine Blood Urine RBC Calcium Oxalate Crystal Hyaline Casts Urine Mucus Urine Yeast (Budding) 07/05/24 07/05/24 07/05/24 07:54 12:54 17:46 WBC Sodium Carbon Dioxide Creatinine Glucose POC Glucose (mg/dL) 284 H 121 H 191 H Hemoglobin A1c AST ALT Alkaline Phosphatase Triglycerides VLDL Cholesterol, Calc HDL Cholesterol Urine Protein Urine Glucose (UA) Urine Blood Urine RBC Calcium Oxalate Crystal Hyaline Casts Urine Mucus Urine Yeast (Budding) 07/05/24 07/10/24 07/10/24 20:07 12:45 17:41 WBC Sodium Carbon Dioxide Creatinine Glucose POC Glucose (mg/dL) 261 H 159 H 201 H Hemoglobin A1c AST ALT Alkaline Phosphatase Triglycerides VLDL Cholesterol, Calc HDL Cholesterol Urine Protein Urine Glucose (UA) Urine Blood Urine RBC Calcium Oxalate Crystal Hyaline Casts Urine Mucus Urine Yeast (Budding) 07/12/24 07/13/24 07/14/24 07:45 07:46 12:40 WBC Sodium Carbon Dioxide Creatinine Glucose POC Glucose (mg/dL) 176 H 157 H 136 H Hemoglobin A1c AST ALT Alkaline Phosphatase Triglycerides VLDL Cholesterol, Calc HDL Cholesterol Urine Protein Urine Glucose (UA) Urine Blood Urine RBC Calcium Oxalate Crystal Hyaline Casts Urine Mucus Urine Yeast (Budding) 07/27/24 08/04/24 08/15/24 08:06 23:39 17:35 WBC Sodium Carbon Dioxide Creatinine Glucose POC Glucose (mg/dL) 138 H 111 H 111 H Hemoglobin A1c AST ALT Alkaline Phosphatase Triglycerides VLDL Cholesterol, Calc HDL Cholesterol Urine Protein Urine Glucose (UA) Urine Blood Urine RBC Calcium Oxalate Crystal Hyaline Casts Urine Mucus Urine Yeast (Budding) Vital Signs Temp 97.6 F 08/17/24 08:34 Pulse 106 H 08/18/24 08:06 Resp 16 08/16/24 06:12 BP 134/82 08/18/24 08:06 Pulse Ox 96 08/17/24 08:34 FiO2 Allergies Allergy/AdvReac Type Severity Reaction Status Date / Time colchicine Allergy Swelling Verified 06/29/24 23:43 latex Allergy Rash/Hives Verified 06/29/24 23:43 paliperidone [From Invega] AdvReac Nausea & Verified 06/29/24 23:43 Vomiting Plan - Discharge Summary Discharge Rx Participant: No New Discharge Prescriptions: New ARIPiprazole [Abilify] 5 mg PO DAILY 30 Days #30 tab Atorvastatin [Lipitor] 10 mg PO DAILY 30 Days #30 tab Melatonin 5 mg PO HS 30 Days #30 tab allopurinoL [Zyloprim] 300 mg PO DAILY 30 Days #30 tab glipiZIDE [Glucotrol] 2.5 mg PO AC-BRKFST tab INSULIN ASPART (NovoLOG) [NovoLOG (formulary)] 0 unit SQ ACHS each Twxkbaxm-Ucwvolohqu-Maxw Oint [Triple Antibiotic Ointment] 1 applic TOPICAL BID PRN 30 Days #1 each PRN Reason: Skin Irritation Continue Losartan Potassium 100 mg PO DAILY Discontinued allopurinoL [Zyloprim] 300 mg PO DAILY Loratadine [Claritin] 10 mg PO DAILY PRN 30 Days tab PRN Reason: Congestion Sodium Bicarbonate Tab 650 mg PO TID Dapagliflozin Propanediol [Farxiga] 5 mg PO DAILY Atorvastatin [Lipitor] 20 mg PO DAILY Fluticasone Nasal [place] [Flonase Nasal [place]] 2 spr EA NOSTRIL BID #1 ml Metoprolol Succinate (ER) [Toprol Xl] 25 mg PO DAILY FLUoxetine HCL [PROzac] 10 mg PO DAILY No Action Multivit,Calc,Min/FA/K1/Lycop [One-A-Day Men's Complete Tab] 1 each PO DAILY Discharge Medication List Losartan Potassium 100 mg PO DAILY 08/28/23 [History] Multivit,Calc,Min/FA/K1/Lycop [One-A-Day Men's Complete Tab] 1 each PO DAILY 08/28/23 [History] ARIPiprazole [Abilify] 5 mg PO DAILY 30 Days #30 tab 08/18/24 [Rx] Atorvastatin [Lipitor] 10 mg PO DAILY 30 Days #30 tab 08/18/24 [Rx] INSULIN ASPART (NovoLOG) [NovoLOG (formulary)] 0 unit SQ ACHS each 08/18/24 [Rx] Melatonin 5 mg PO HS 30 Days #30 tab 08/18/24 [Rx] Ydwhcflu-Telxudeyvu-Mtag Oint [Triple Antibiotic Ointment] 1 applic TOPICAL BID PRN 30 Days #1 each 08/18/24 [Rx] allopurinoL [Zyloprim] 300 mg PO DAILY 30 Days #30 tab 08/18/24 [Rx] glipiZIDE [Glucotrol] 2.5 mg PO AC-BRKFST tab 08/18/24 [Rx] Follow up Appointment(s)/Referral(s): [facility] [Outside] - 08/23/24 9:00 am (08/23/24 @ 9:00 am with Chip/Therapist 08/24/24 @ 11:[address] Montiel ) Thuan Reynoso DO [Primary Care Provider] - 1 Week Apolinar Allen MD [REFERRING] - 1 Week (Coatings Inspector for your high sugar) Imelda Miguel FNIgnacio [REFERRING] - 1 Week Inessa Aburto MD [STAFF PHYSICIAN] - 1 Week (cargo router for your gout ) Victor Hugo Covarrubias DO [STAFF PHYSICIAN] - 1 Week (Administration Intern regarding Chronic kidney disease.) Patient Instructions/Handouts: Bipolar Disorder (DC) Activity/Diet/Wound Care/Special Instructions: [facility] Discharge Info Avoid the use of street drugs and alcohol. Take all medications as prescribed. When you are in need of refills on your medications, please contact your outpatient medical provider and/or outpatient psychiatrist. Please go to your scheduled outpatient appointments for aftercare treatment. If symptoms return or become worse, call the crisis line at or and/or visit the nearest emergency room for assistance. National Suicide and Crisis Lifeline - call or text 386 Heart healthy low carbohydrate 1800 kcal/day diet activity is restricted till you see your doctor We recommend to check your glucose 4 times daily, before each meal and at bedtime. Keep the results in a log book and bring it your doctor and your appointment date Discharge Disposition: HOME SELF-CARE
--- NOTE | 2024-08-19 11:12 | P.GSHP ---
History of Present Illness H&P Date: 08/05/24 Chief Complaint: Painful hypertrophic nail Patient is being seen in the psychiatric patient is being seen seen in the psychiatric unit for treatment of painful elongated hypertrophic nails bilateral feet. Patient has been hospitalized for several months and is unable to treat these due to his medical condition Past Medical History Past Medical History: Diabetes Mellitus, Hyperlipidemia, Hypertension, Renal Di sease, Sleep Apnea/CPAP/BIPAP Additional Past Medical History / Comment(s): Recent rectal bleed-one time and current bilateral cellulitis lower legs. Other hx: Gout bilateral feet, nephrolithiasis, past bilateral carpal tunnel syndrome but not lately, possible arthritis L ankle, elevated triglycerides with last lab draw History of Any Multi-Drug Resistant Organisms: None Reported Additional Past Surgical History / Comment(s): POLYP REMOVED FROM NOSE AND A CYST REMOVED FROM UPPER BACK Past Anesthesia/Blood Transfusion Reactions: No Reported Reaction Past Psychological History: Anxiety, Bipolar, Depression Smoking Status: Never smoker Past Alcohol Use History: None Reported Past Drug Use History: None Reported - Past Family History Mother Family Medical History: Diabetes Mellitus, Hypertension Father Family Medical History: Congestive Heart Failure (CHF) Additional Family Medical History / Comment(s): Father from CHF one week before his 41st birthday. Medications and Allergies Home Medications Medication Instructions Recorded Confirmed Type Losartan Potassium 100 mg PO DAILY 08/28/23 09/08/23 History Multivit,Calc,Min/FA/K1/Lycop 1 each PO DAILY 08/28/23 09/08/23 History [One-A-Day Men's Complete Tab] ARIPiprazole [Abilify] 5 mg PO DAILY 30 Days #30 tab 08/18/24 Rx Atorvastatin [Lipitor] 10 mg PO DAILY 30 Days #30 tab 08/18/24 Rx INSULIN ASPART (NovoLOG) [NovoLOG 0 unit SQ ACHS each 08/18/24 Rx (formulary)] Melatonin 5 mg PO HS 30 Days #30 tab 08/18/24 Rx Zulpixdy-Mnvbefkdlq-Czqg Oint 1 applic TOPICAL BID PRN 30 Days 08/18/24 Rx [Triple Antibiotic Ointment] #1 each allopurinoL [Zyloprim] 300 mg PO DAILY 30 Days #30 tab 08/18/24 Rx glipiZIDE [Glucotrol] 2.5 mg PO AC-BRKFST tab 08/18/24 Rx Allergies Allergy/AdvReac Type Severity Reaction Status Date / Time colchicine Allergy Swelling Verified 06/29/24 23:43 latex Allergy Rash/Hives Verified 06/29/24 23:43 paliperidone [From Invega] AdvReac Nausea & Verified 06/29/24 23:43 Vomiting Surgical - Exam Vital Signs Temp Pulse Resp BP Pulse Ox 98 F 129 H 20 148/84 96 06/29/24 23:43 06/29/24 23:43 06/29/24 23:43 06/29/24 23:43 06/29/24 23:43 - Cardiovascular Patient's pedal pulses are patent palpable symmetrical bilateral - Integumentary Patient has elongated painful hypertrophic nails x 10 bilateral feet - Neurologic All epicritic and palliative sensations intact symmetric bilateral - Musculoskeletal Range of motion of the ankle joint subtalar joint midtarsal joint metatarsophalangeal joint normal symmetric bilateral all inverters everters plantarflex dorsiflexors normal symmetric bilateral Results - Labs 06/30/24 10:49 06/30/24 10:49 Assessment and Plan Assessment: Painful hypertrophic nails bilateral Plan: Exam reviewed patient's past medical history no contraindication to debridement of these nails we debrided the nails manually x 10 patient will benefit from this treatment. Time with Patient: Greater than 30
== END 2024-08-18 12:23 | disposition home or self-care (01) | DRG 885 ==
LOC: EC 23:37 → 3MHU 06-30 01:50
PROVIDERS: ADMIT Psychiatry & Neurology Psychiatry; ATTEND Psychiatry & Neurology Psychiatry
DX: F31.2 Bipolar disorder, current episode manic severe with psychotic features (principal); F15.93 Other stimulant use, unspecified with withdrawal; Z68.42 Body mass index [BMI] 45.0-49.9, adult; L03.116 Cellulitis of left lower limb; L03.115 Cellulitis of right lower limb; F41.9 Anxiety disorder, unspecified; F60.89 Other specific personality disorders; L29.9 Pruritus, unspecified; G47.00 Insomnia, unspecified; G47.33 Obstructive sleep apnea (adult) (pediatric); E11.65 Type 2 diabetes mellitus with hyperglycemia; E11.22 Type 2 diabetes mellitus with diabetic chronic kidney disease; R82.71 Bacteriuria; I12.9 Hypertensive chronic kidney disease with stage 1 through stage 4 chronic kidney disease, or unspecified chronic kidney disease; E78.5 Hyperlipidemia, unspecified; F12.10 Cannabis abuse, uncomplicated; E66.01 Morbid (severe) obesity due to excess calories; M1A.9XX0 Chronic gout, unspecified, without tophus (tophi); N18.30 Chronic kidney disease, stage 3 unspecified; R45.850 Homicidal ideations; Z91.148 Patient's other noncompliance with medication regimen for other reason; W57.XXXA Bitten or stung by nonvenomous insect and other nonvenomous arthropods, initial encounter; Z79.899 Other long term (current) drug therapy; Z87.442 Personal history of urinary calculi; Z91.199 Patient's noncompliance with other medical treatment and regimen due to unspecified reason; Z11.52 Encounter for screening for COVID-19; Z71.3 Dietary counseling and surveillance; Z28.310 Unvaccinated for COVID-19; Z28.21 Immunization not carried out because of patient refusal; Z60.2 Problems related to living alone; Z88.8 Allergy status to other drugs, medicaments and biological substances; Z91.040 Latex allergy status; Z71.89 Other specified counseling
CPT/HCPCS: 36415; 80053; 80061; 80306; 81001; 82075; 82248; 83036; 84443; 85025; 87635; 99285